=== PATIENT | male | born 1930 | race Caucasian/White ===

== ENCOUNTER 2017-05-17 14:47 | Inpatient (IN) | payer MEDICARE, OTHER ==
[~2017-05-17] VITALS: Ht 162.6 cm; Wt 50.0 kg
[~2017-05-17 14:47] MED LIST: DOCU1CAP39 PO; ENOX40P SQ; LISI-360 PO; LORTA5 PO; METO25TA6 PO
[2017-05-17 15:10] VITALS: BP 132/70; PULSE 84; RESP 16; TEMP 98.9; O2SAT 97
[2017-05-17] MEDS ORDERED: LISI10TA3 PO (16:25)
[2017-05-17] MEDS ORDERED: DONE1TAB63 PO (16:25)
[2017-05-17] MEDS ORDERED: METO25TA3 PO (16:25)
[2017-05-17] MEDS ORDERED: AMLO10TA2 PO (16:25)
[2017-05-17 16:26] LABS: AUTOMATED NEUTROPHIL # 23.3 TH/MM3 (1.8-7.7); BASOPHIL % 0.1 % (0.0-2.0); EOSINOPHIL # 0.2 TH/MM3 (0-0.4); EOSINOPHIL % 0.7 % (0.0-4.0); HEMATOCRIT 35.5 % (39.0-51.0); HEMO FLAGS DIFF FINAL; LYMPH % 6.9 % (9.0-44.0); LYMPHOCYTE # 1.9 TH/MM3 (1.0-4.8); MEAN CELL VOLUME 95.1 FL (80.0-100.0); MEAN CORPUSCULAR HEMOGLOBIN 32.7 PG (27.0-34.0); MEAN CORPUSCULAR HGB CONC 34.4 % (32.0-36.0); NEUT % 87.3 % (16.0-70.0); PLATELET COUNT 155 TH/MM3 (150-450); RED BLOOD COUNT 3.73 MIL/MM3 (4.50-5.90); RED CELL DISTRIBUTION WIDTH 13.4 % (11.6-17.2); WHITE BLOOD COUNT 26.7 TH/MM3 (4.0-11.0)
[2017-05-17 16:41] LABS: APTT (PATIENT) 27.7 SEC (24.3-30.1)
[2017-05-17 16:44] VITALS: BP 131/74; PULSE 96; RESP 16; O2SAT 98
[2017-05-17 16:47] LABS: BACTERIA, URINE OCC /hpf; BLOOD, URINE TRACE (NEG); GLUCOSE,URINE NEG (NEG); KETONE, URINE 10 mg/dL (NEG); NITRITE,URINE NEG (NEG); PH, URINE 5.5 (5.0-8.5); SQUAMOUS EPITHELIAL CELL URINE <1 /hpf (0-5); URINE COLOR YELLOW (YELLW/STRAW)
[2017-05-17 16:49] LABS: COMMENT (UR) CULT NOT INDICATED; CULTURE IF INDICATED CULT NOT INDICATED
[2017-05-17 16:55] LABS: ALT (GPT) 19 U/L (12-78); ANION GAP 10 MEQ/L (5-15); AST (GOT) 21 U/L (15-37); BICARBONATE 24.2 MEQ/L (21.0-32.0); BLOOD UREA NITROGEN 30 MG/DL (7-18); CHLORIDE 103 MEQ/L (98-107); GLOMERULAR FILTRATION RATE 56 ML/MIN (>89); POTASSIUM 3.9 MEQ/L (3.5-5.1); SODIUM (NA) 137 MEQ/L (136-145)
[2017-05-17 16:58] LABS: ALKALINE PHOSPHATASE 99 U/L (45-117); TOTAL BILIRUBIN ADULT 0.9 MG/DL (0.2-1.0)
--- NOTE | 2017-05-17 17:08 | PD ---
HPI Chief Complaint: Medical Clearance Time Seen by Provider: 16:46 Travel History International Travel<30 days: No Contact w/Intl Traveler<30days: No Traveled to known affect area: No History of Present Illness HPI 86-year-old male presents to emergency department for weakness, decreased oral intake, nonbloody diarrhea for approximately one week. He states that he has had diarrhea 4-5 times a day. Denies foul odor, fatty stool, flatulence. Patient denies recent travel, sick contacts, recent antibiotic use, long-term or assisted living visits. Patient has apparently been in bed more than normal with poor oral intake secondary to decreased appetite. Patient lives at home with . Apparently patient does have a referral to hematology for "low platelets" but has not yet followed up. Patient denies fever, chills, trauma, falls, pain, chest pain, shortness of breath, palpitations, abdominal, pain leg pain. Patient followed up with his primary care physician, Dr. Cortez May 03. PFSH Past Medical History Cancer: No Endocrine: No Genitourinary: Yes Hypertension: Yes Immune Disorder: No Kidney Stones: Yes Neurologic: No Psychiatric: No Reproductive: No Respiratory: No Influenza Vaccination: Yes Past Surgical History Abdominal Surgery: Yes (APPENDECTOMY) Appendectomy: Yes Tonsillectomy: Yes Social History Alcohol Use: No Tobacco Use: No Substance Use: No Allergies-Medications (Allergen,Severity, Reaction): Coded Allergies: No Known Allergies (Unverified Allergy, Unknown, 05/17/17) Reported Meds & Prescriptions Reported Meds & Active Scripts Active Reported Amlodipine (Amlodipine Besylate) 10 Mg Tab 10 Mg PO DAILY Metoprolol Tartrate 25 Mg Tab 25 Mg PO DAILY Lisinopril 10 Mg Tab 10 Mg PO DAILY Donepezil 23 Mg Tab 10 Mg PO HS Do not split, crush or chew. Review of Systems Except as stated in HPI: all other systems reviewed are Neg Physical Exam Narrative GENERAL: Well-nourished, well-developed patient. SKIN: Focused skin assessment warm/dry. HEAD: Normocephalic. Atraumatic EYES: No scleral icterus. No injection or drainage. PERRLA, EOMI NECK: Supple, trachea midline. No JVD or lymphadenopathy. No midline tenderness CARDIOVASCULAR: Regular rate and rhythm without murmurs, gallops, or rubs. RESPIRATORY: Breath sounds equal bilaterally. No accessory muscle use. GASTROINTESTINAL: Abdomen soft, non-tender, nondistended. MUSCULOSKELETAL: No cyanosis, or edema. Rectal exam- non bloody stool in diaper, good tone, brown stool BACK: Nontender without obvious deformity. No CVA tenderness. No midline tenderness Data Data Last Documented VS Vital Signs Date Time Temp Pulse Resp B/P (MAP) Pulse Ox O2 Delivery O2 Flow Rate FiO2 05/17/17 18:46 96 16 151/89 (109) 96 Room Air 05/17/17 15:10 98.9 Orders Orders Complete Blood Count With Diff (05/17/17 15:34) Comprehensive Metabolic Panel (05/17/17 15:34) Act Partial Throm Time (Ptt) (05/17/17 15:34) Urinalysis - C+S If Indicated (05/17/17 16:20) Chest, Single Ap (05/17/17 16:52) Stool Ova And Parasite Screen (05/17/17 16:57) Stool Wbc (Leukocytes) (05/17/17 16:57) C Diff Toxin Pcr (05/17/17 16:57) Electrocardiogram (05/17/17 ) Ckmb (Isoenzyme) Profile (05/17/17 15:30) Troponin I (05/17/17 15:30) CKMB (05/17/17 15:30) CKMB% (05/17/17 15:30) Admit Order (Ed Use Only) (05/17/17 19:21) Labs Laboratory Tests Test 05/17/17 15:30 05/17/17 16:35 White Blood Count 26.7 TH/MM3 Red Blood Count 3.73 MIL/MM3 Hemoglobin 12.2 GM/DL Hematocrit 35.5 % Mean Corpuscular Volume 95.1 FL Mean Corpuscular Hemoglobin 32.7 PG Mean Corpuscular Hemoglobin Concent 34.4 % Red Cell Distribution Width 13.4 % Platelet Count 155 TH/MM3 Mean Platelet Volume 8.3 FL Neutrophils (%) (Auto) 87.3 % Lymphocytes (%) (Auto) 6.9 % Monocytes (%) (Auto) 5.0 % Eosinophils (%) (Auto) 0.7 % Basophils (%) (Auto) 0.1 % Neutrophils # (Auto) 23.3 TH/MM3 Lymphocytes # (Auto) 1.9 TH/MM3 Monocytes # (Auto) 1.3 TH/MM3 Eosinophils # (Auto) 0.2 TH/MM3 Basophils # (Auto) 0.0 TH/MM3 CBC Comment DIFF FINAL Differential Comment Activated Partial Thromboplast Time 27.7 SEC Blood Urea Nitrogen 30 MG/DL Creatinine 1.22 MG/DL Random Glucose 66 MG/DL Total Protein 5.3 GM/DL Albumin 2.1 GM/DL Calcium Level 9.8 MG/DL Alkaline Phosphatase 99 U/L Aspartate Amino Transf (AST/SGOT) 21 U/L Alanine Aminotransferase (ALT/SGPT) 19 U/L Total Bilirubin 0.9 MG/DL Sodium Level 137 MEQ/L Potassium Level 3.9 MEQ/L Chloride Level 103 MEQ/L Carbon Dioxide Level 24.2 MEQ/L Anion Gap 10 MEQ/L Estimat Glomerular Filtration Rate 56 ML/MIN Total Creatine Kinase 131 U/L Creatine Kinase MB 2.0 NG/ML Troponin I 0.02 NG/ML Urine Color YELLOW Urine Turbidity HAZY Urine pH 5.5 Urine Specific [place] 1.015 Urine Protein 30 mg/dL Urine Glucose (UA) NEG mg/dL Urine Ketones 10 mg/dL Urine Occult Blood TRACE Urine Nitrite NEG Urine Bilirubin NEG Urine Urobilinogen LESS THAN 2.0 MG/DL Urine Leukocyte Esterase NEG Urine RBC 2 /hpf Urine WBC 2 /hpf Urine Squamous Epithelial Cells <1 /hpf Urine Bacteria OCC /hpf Microscopic Urinalysis Comment CULT NOT INDICATED MDM Medical Decision Making Medical Screen Exam Complete: Yes Emergency Medical Condition: Yes Differential Diagnosis Nonspecific diarrhea versus C. difficile versus viral syndrome Generalize weakness versus dehydration versus hypoglycemia Narrative Course 86-year-old male presents to emergency department for weakness, decreased oral intake, nonbloody diarrhea for approximately one week. He states that he has had diarrhea 4-5 times a day. Denies foul odor, fatty stool, flatulence. Patient denies recent travel, sick contacts, recent antibiotic use, long-term or assisted living visits. Patient has apparently been in bed more than normal with poor oral intake secondary to decreased appetite. Patient lives at home with . Apparently patient does have a referral to hematology for "low platelets" but has not yet followed up. Patient denies fever, chills, trauma, falls, pain, chest pain, shortness of breath, palpitations, abdominal, pain leg pain. Patient followed up with his primary care physician, Dr. Cortez May 03. Physical exam essentially unremarkable. Vital signs stable. Mild elevation of HR. WBC 26.7, H&H 12.2/35.5. FOBT negative. Stool tests pending. CXR without acute process. Urine consistent with poor oral intake. No evidence of urinary tract infection. Blood glucose 66. 1 cup of orange juice was administered in the ED. BG increased to 91. Pt tolerated PO fluids well. Pt to be admitted for leukocytosis, diarrhea, and generalized weakness. Dr Rouse [facility] Pos. & Neg. Controls: Passed Fecal Specimen Occult Blood: Negative Diagnosis Primary Impression: Diarrhea Qualified Codes: R19.7 - Diarrhea, unspecified Additional Impressions: Leukocytosis Qualified Codes: D72.829 - Elevated white blood cell count, unspecified Anemia Qualified Codes: D64.9 - Anemia, unspecified Admitting Information Admitting Physician Requests: Admit Condition: Stable Noemí Arzate May 17, 2017 17:08
--- NOTE | 2017-05-17 17:51 | RADRPT ---
EXAM DATE/TIME: 05/17/2017 17:22 [place] COMPARISON: CHEST SINGLE AP, January 22, 2014, 16:35. INDICATIONS : Fever. MEDICAL HISTORY : Hypertension. SURGICAL HISTORY : Appendectomy. ENCOUNTER: Initial ACUITY: 1 day PAIN SCORE: Non-responsive. LOCATION: Bilateral chest FINDINGS: There is minimal elevation right hemidiaphragm. Left lung is clear. The heart and pulmonary vascular ity are normal. The portion of the bony skeleton visualized is unremarkable. CONCLUSION: Minimal elevation right hemidiaphragm without consolidation. Jus Gutierres MD FACR on May 17, 2017 at 17:48 Board Certified Radiologist. This report was verified electronically.
[2017-05-17 18:36] LABS: CREATINE KINASE 131 U/L (39-308)
[2017-05-17 18:46] VITALS: BP 151/89; PULSE 96; RESP 16; O2SAT 96
[2017-05-17 19:42] VITALS: BP 135/60; PULSE 87; RESP 16; O2SAT 97
--- NOTE | 2017-05-17 23:10 | HHI.HP ---
[facility] Service [facility] Primary Care Physician Jose Jc MD Admission Diagnosis Weakness, diarrhea, leukocytosis Diagnoses: Travel History International Travel<30 Days: No Contact w/Intl Traveler <30 Da: No Traveled to Known Affected Are: No History of Present Illness 86-year-old male with a past medical history significant for hypertension presents to the emergency department for a several day history of weakness, decreased by mouth and nonbloody diarrhea for approximately one week. At the time of our interview, the patient is alone in his room and denies all of these symptoms. Per his , the patient has diarrhea approximately 4-5 times daily. It is foul-smelling. He has been fatigued. No known sick contacts. No recent antibiotic use. According to the patient's , he has a referral to hematology for "low platelets" however has not yet followed up. CBC is significant only for a leukocytosis to 26.7 with a left shift. Platelets are within normal limits at 155. Chemistry significant for BUN of 30 and a glucose of 66, however patient's blood sugar rebounded after by mouth intake. Chest x- ray negative for acute disease. Review of Systems Denies fever or chills Denies blurry vision, otorrhea, rhinorrhea Denies sore throat and cough No chest pain, palpitations, shortness of breath No abdominal pain Denies constipation/diarrhea/nausea/vomiting Denies muscle pain/weakness No rashes Past Family Social History Past Medical History (Obtained from medical record review) Hypertension Past Surgical History Appendectomy Tonsillectomy Reported Medications Reported Meds & Active Scripts Active Reported Amlodipine (Amlodipine Besylate) 10 Mg Tab 10 Mg PO DAILY Metoprolol Tartrate 25 Mg Tab 25 Mg PO DAILY Lisinopril 10 Mg Tab 10 Mg PO DAILY Donepezil 23 Mg Tab 10 Mg PO HS Do not split, crush or chew. Allergies: Coded Allergies: No Known Allergies (Unverified Adverse Reaction, Unknown, 05/17/17) Family History Sister with hypertension. Social History Denies alcohol, tobacco and illicit drugs. Lives with his . Physical Exam Vital Signs Vital Signs Date Time Temp Pulse Resp B/P (MAP) Pulse Ox O2 Delivery O2 Flow Rate FiO2 05/17/17 21:35 05/17/17 19:42 87 16 135/60 (85) 97 Room Air 05/17/17 18:46 96 16 151/89 (109) 96 Room Air 05/17/17 16:44 96 16 131/74 (93) 98 Room Air 05/17/17 15:10 98.9 84 16 132/70 (90) 97 Physical Exam GENERAL: Elderly, confused male lying in bed SKIN: No rashes, ecchymoses or lesions. Cool and dry. HEAD: Atraumatic. Normocephalic. No temporal or scalp tenderness. EYES: Pupils equal round and reactive. Extraocular motions intact. No scleral icterus. No injection or drainage. ENT: Nose without bleeding, purulent drainage or septal hematoma. Throat without erythema, tonsillar hypertrophy or exudate. Uvula midline. Airway patent. Neck is membranes dry. NECK: Trachea midline. No JVD or lymphadenopathy. Supple, nontender, no meningeal signs. CARDIOVASCULAR: Regular rate and rhythm without murmurs, gallops, or rubs. RESPIRATORY: Clear to auscultation. Breath sounds equal bilaterally. No wheezes , rales, or rhonchi. GASTROINTESTINAL: Abdomen soft, non-tender, nondistended. No hepato-splenomegaly , or palpable masses. No guarding. MUSCULOSKELETAL: Extremities without clubbing, cyanosis, or edema. No joint tenderness, effusion, or edema noted. NEUROLOGICAL: Cranial nerves II through XII intact. Motor and sensory grossly within normal limits. Normal speech. Patient and O 1, oriented only to self. Laboratory Laboratory Tests Test 05/17/17 15:30 05/17/17 16:35 05/17/17 20:30 White Blood Count 26.7 Red Blood Count 3.73 Hemoglobin 12.2 Hematocrit 35.5 Mean Corpuscular Volume 95.1 Mean Corpuscular Hemoglobin 32.7 Mean Corpuscular Hemoglobin Concent 34.4 Red Cell Distribution Width 13.4 Platelet Count 155 Mean Platelet Volume 8.3 Neutrophils (%) (Auto) 87.3 Lymphocytes (%) (Auto) 6.9 Monocytes (%) (Auto) 5.0 Eosinophils (%) (Auto) 0.7 Basophils (%) (Auto) 0.1 Neutrophils # (Auto) 23.3 Lymphocytes # (Auto) 1.9 Monocytes # (Auto) 1.3 Eosinophils # (Auto) 0.2 Basophils # (Auto) 0.0 CBC Comment DIFF FINAL Differential Comment Activated Partial Thromboplast Time 27.7 Blood Urea Nitrogen 30 Creatinine 1.22 Random Glucose 66 Total Protein 5.3 Albumin 2.1 Calcium Level 9.8 Alkaline Phosphatase 99 Aspartate Amino Transf (AST/SGOT) 21 Alanine Aminotransferase (ALT/SGPT) 19 Total Bilirubin 0.9 Sodium Level 137 Potassium Level 3.9 Chloride Level 103 Carbon Dioxide Level 24.2 Anion Gap 10 Estimat Glomerular Filtration Rate 56 Total Creatine Kinase 131 Creatine Kinase MB 2.0 Troponin I 0.02 Urine Color YELLOW Urine Turbidity HAZY Urine pH 5.5 Urine Specific [place] 1.015 Urine Protein 30 Urine Glucose (UA) NEG Urine Ketones 10 Urine Occult Blood TRACE Urine Nitrite NEG Urine Bilirubin NEG Urine Urobilinogen LESS THAN 2.0 Urine Leukocyte Esterase NEG Urine RBC 2 Urine WBC 2 Urine Squamous Epithelial Cells <1 Urine Bacteria OCC Microscopic Urinalysis Comment CULT NOT INDICATED Date/Time Source Procedure Growth Status 05/17/17 20:30 Stool Stool Stool Pus (SLIM) Pending Received Result Diagram: 05/17/17 1530 05/17/17 1530 Caprini VTE Risk Assessment Caprini VTE Risk Assessment: Mod/High Risk (score >= 2) Caprini Risk Assessment Model Point Value = 1 Point Value = 2 Point Value = 3 Point Value = 5 Age 41-60 Minor surgery BMI > 25 kg/m2 Swollen legs Varicose veins or History of unexplained or recurrent spontaneous Oral contraceptives or hormone replacement Sepsis (< 1 month) Serious lung disease, including pneumonia (< 1 month) Abnormal pulmonary function Acute myocardial infarction Congestive heart failure (< 1 month) History of inflammatory bowel disease Medical patient at bed rest Age 61-74 Arthroscopic surgery Major open surgery (> 45 min) Laparoscopic surgery (> 45 min) Malignancy Confined to bed (> 72 hours) Immobilizing plaster cast Central venous access Age >= 75 History of VTE Family history of VTE Factor V Leiden Prothrombin [id number] Lupus anticoagulant Anticardiolipin antibodies Elevated serum homocysteine Heparin-induced thrombocytopenia Other congenital or acquired thrombophilia Stroke (< 1 month) Elective arthroplasty Hip, pelvis, or leg fracture Acute spinal cord injury (< 1 month) Prophylaxis Regimen Total Risk Factor Score Risk Level Prophylaxis Regimen 0-1 Low Early ambulation 2 Moderate Order ONE of the following: *Sequential Compression Device (SCD) *Heparin 5000 units SQ BID 3-4 Higher Order ONE of the following medications: *Heparin 5000 units SQ TID *Enoxaparin/Lovenox 40 mg SQ daily (WT < 150 kg, CrCl > 30 mL/min) *Enoxaparin/Lovenox 30 mg SQ daily (WT < 150 kg, CrCl > 10-29 mL/min) *Enoxaparin/Lovenox 30 mg SQ BID (WT < 150 kg, CrCl > 30 mL/min) AND/OR *Sequential Compression Device (SCD) 5 or more Highest Order ONE of the following medications: *Heparin 5000 units SQ TID (Preferred with Epidurals) *Enoxaparin/Lovenox 40 mg SQ daily (WT < 150 kg, CrCl > 30 mL/min) *Enoxaparin/Lovenox 30 mg SQ daily (WT < 150 kg, CrCl > 10-29 mL/min) *Enoxaparin/Lovenox 30 mg SQ BID (WT < 150 kg, CrCl > 30 mL/min) AND *Sequential Compression Device (SCD) Assessment and Plan Assessment and Plan 86-year-old male with a past medical history significant for hypertension and dementia presents with a one-week history of decreased by mouth intake, increased lethargy and diarrhea. Patient was hypoglycemic on admission, however hypoglycemia resolved with oral intake. 1. Diarrhea/decreased by mouth intake Patient with leukocytosis but afebrile C. difficile toxin pending Stool studies pending Elevated BUN to 30 Gentle fluid hydration 2. Hypoglycemia Suspect secondary to poor by mouth intake Encourage PO Monitor bedside glucose 3. Hypertension Continue home metoprolol, amlodipine and lisinopril 4. Dementia Continue home Donepezil FEN Regular diet NS at 60 cc/hour Electrolytes: Monitored recently. Heparin Mary Rouse MD May 17, 2017 23:10
[2017-05-17] MEDS: SODIUM CHLOR 0.9% 1000 ML INJ 1,000 ML IV SCH (23:20)
[2017-05-17 23:21] LABS: C. DIFF EPI 027 PRESUMPTIVE NEGATIVE (NEGATIVE)
[2017-05-18 02:44] VITALS: BP 154/67; PULSE 79; RESP 18; TEMP 98.1; O2SAT 96
[2017-05-18 08:15] VITALS: BP 158/63; PULSE 82; RESP 16; TEMP 97.9; O2SAT 98
[2017-05-18] MEDS ORDERED: HEPARIN SODIUM - SQ 10,000 UNITS/ML VIAL SQ SCH (09:00)
[2017-05-18] MEDS ORDERED: metroNIDAZOLE 500 MG TAB PO SCH (09:00)
[2017-05-18] MEDS: METOPROLOL TARTRATE 25 MG TAB PO SCH (09:08)
[2017-05-18] MEDS: LISINOPRIL 10 MG TAB PO SCH (09:09)
[2017-05-18] MEDS: LACTOBACILLUS ACIDOPHILUS TAB PO SCH ×3 (09:17→18:40)
[2017-05-18 11:25] VITALS: BP 116/55; PULSE 69; RESP 16; TEMP 97.6; O2SAT 95
[2017-05-18] MEDS: VANCOMYCIN 500 MG VIAL (FOR ORAL USE ONLY) PO SCH ×3 (14:20→22:22)
[2017-05-18 15:20] LABS: AUTOMATED NEUTROPHIL # 21.1 TH/MM3 (1.8-7.7); BASOPHIL # 0.1 TH/MM3 (0-0.2); BASOPHIL % 0.5 % (0.0-2.0); EOSINOPHIL # 0.3 TH/MM3 (0-0.4); HEMO FLAGS DIFF FINAL; MEAN CELL VOLUME 94.9 FL (80.0-100.0); MEAN CORPUSCULAR HEMOGLOBIN 31.3 PG (27.0-34.0); MONO % 4.8 % (0.0-8.0); NEUT % 85.7 % (16.0-70.0); PLATELET COUNT 182 TH/MM3 (150-450); RED BLOOD COUNT 4.11 MIL/MM3 (4.50-5.90); RED CELL DISTRIBUTION WIDTH 13.6 % (11.6-17.2); WHITE BLOOD COUNT 24.6 TH/MM3 (4.0-11.0)
[2017-05-18 15:40] LABS: BICARBONATE 27.3 MEQ/L (21.0-32.0); MAGNESIUM 1.8 MG/DL (1.5-2.5); POTASSIUM 3.7 MEQ/L (3.5-5.1)
--- NOTE | 2017-05-18 16:05 | HHI.PR ---
Subjective Remarks Follow up for diarrhea, C. Diff colitis. Patient is currently doing well. Resting in bed. No chest pain, SOB, fever, chills. Objective Vitals Vital Signs Date Time Temp Pulse Resp B/P (MAP) Pulse Ox O2 Delivery O2 Flow Rate FiO2 05/18/17 11:25 97.6 69 16 116/55 (75) 95 05/18/17 08:15 97.9 82 16 158/63 (94) 98 05/18/17 02:44 98.1 79 18 154/67 (96) 96 05/17/17 21:35 05/17/17 19:42 87 16 135/60 (85) 97 Room Air 05/17/17 18:46 96 16 151/89 (109) 96 Room Air 05/17/17 16:44 96 16 131/74 (93) 98 Room Air I/O 05/17/17 05/17/17 05/17/17 05/18/17 05/18/17 05/18/17 07:00 15:00 23:00 07:00 15:00 23:00 Intake Total 240 ml Output Total 200 ml Balance 40 ml Intake Oral 240 ml Output Urine Total 200 ml # Bowel Movements 3 Result Diagram: 05/18/17 1445 05/18/17 1445 Imaging Last Impressions Chest X-Ray 05/17/17 1652 Signed Impressions: Service Date/Time: Wednesday, May 17, 2017 17:22 - CONCLUSION: Minimal elevation right hemidiaphragm without consolidation. Jus Gutierres MD FACR Objective Remarks GENERAL: Alert,NAD. SKIN: Warm and dry. HEAD: Normocephalic. EYES: No scleral icterus. No injection or drainage. NECK: Supple, trachea midline. No JVD or lymphadenopathy. CARDIOVASCULAR: Regular rate and rhythm without murmurs, gallops, or rubs. RESPIRATORY: Breath sounds equal bilaterally. No accessory muscle use. GASTROINTESTINAL: Abdomen soft, non-tender, nondistended. MUSCULOSKELETAL: No cyanosis, or edema. BACK: Nontender without obvious deformity. No CVA tenderness. Procedures None. A/P Problem List: (1) C. difficile colitis ICD Code: A04.72 - Enterocolitis due to Clostridium difficile, not specified as recurrent (2) Dementia ICD Code: F03.90 - Unspecified dementia without behavioral disturbance (3) HTN (hypertension) ICD Code: I10 - Essential (primary) hypertension Assessment and Plan Mr. Key is an 86-year-old male with a past medical history significant for hypertension and dementia presents with a one-week history of decreased by mouth intake, increased lethargy and diarrhea. - Sepsis (HR 96, WBC 26.7, known infection abdominal) - Severe C. Diff colitis - WBC 26.7 on admission. We will start patient on PO Vancomycin 125mg QID for 14 days. - Once WBC improves and clinical improvement occurs, we can potentially discharge patient on oral Vancomycin. - Hypertension - Currently normotensive. - Continue Lisinopril 10mg Qday, Amlodipine 10mg Qday and Metoprolol 25mg Qday. - Dementia - Continue Donepezil 10mg QHS. - Mild ZOLTAN - Creatinine 1.22 ==> 1.12. Full code. Loveprasadx. Leeanne Mccarthy DO May 18, 2017 4:05 pm
[2017-05-18 16:30] VITALS: BP 142/65; PULSE 77; RESP 18; TEMP 97.6; O2SAT 97
[2017-05-18] MEDS: ENOXAPARIN SODIUM 30 MG/0.3 ML SYRINGE SQ SCH (17:20)
--- NOTE | 2017-05-18 18:42 | EKG ---
Date Performed: 05/17/2017 Time Performed: 18:30:24 PTAGE: 86 years EKG: Sinus rhythm WITH FIRST DEGREE AV BLOCK INFERIOR MYOCARDIAL INFARCTION ABNORMAL ECG Compared to prior tracing no significant change PREVIOUS TRACING : 01/22/2014 16.57 DOCTOR: Marine Ivy Interpretating Date/Time 05/18/2017 18:40:58
[2017-05-18] MEDS: SODIUM CHLOR 0.9% 1000 ML INJ 1,000 ML IV SCH (18:43)
[2017-05-18 20:37] VITALS: BP 138/65; PULSE 69; RESP 18; TEMP 97.6; O2SAT 95
[2017-05-18] MEDS: DONEPEZIL HCL 5 MG TAB PO SCH (22:21)
[2017-05-18 23:20] VITALS: BP 138/73; PULSE 90; RESP 18; TEMP 97.8; O2SAT 96
[2017-05-19 02:54] VITALS: BP 146/72; PULSE 85; RESP 18; TEMP 97.8; O2SAT 97
[2017-05-19 08:07] VITALS: BP 134/63; PULSE 70; RESP 20; TEMP 97.7; O2SAT 97
--- NOTE | 2017-05-19 08:22 | HHI.PR ---
Subjective Remarks Follow up C. difficile colitis. Patient is confused. He states that he is not having any diarrhea. Denies abdominal pain, nausea, vomiting, chest pain, dyspnea. Per nursing, diarrhea seems to be slowing down overnight. Objective Vitals Vital Signs Date Time Temp Pulse Resp B/P (MAP) Pulse Ox O2 Delivery O2 Flow Rate FiO2 05/19/17 08:07 97.7 70 20 134/63 (86) 97 05/19/17 02:54 97.8 85 18 146/72 (96) 97 05/18/17 23:20 97.8 90 18 138/73 (94) 96 05/18/17 20:37 97.6 69 18 138/65 (89) 95 05/18/17 16:30 97.6 77 18 142/65 (90) 97 05/18/17 11:25 97.6 69 16 116/55 (75) 95 I/O 05/18/17 05/18/17 05/18/17 05/19/17 05/19/17 05/19/17 07:00 15:00 23:00 07:00 15:00 23:00 Intake Total 240 ml 240 ml Output Total 200 ml Balance 40 ml 240 ml Intake Oral 240 ml 240 ml Output Urine Total 200 ml # Voids 3 # Bowel Movements 3 3 3 Result Diagram: 05/18/17 1445 05/18/17 1445 Imaging Last Impressions Chest X-Ray 05/17/17 1652 Signed Impressions: Service Date/Time: Wednesday, May 17, 2017 17:22 - CONCLUSION: Minimal elevation right hemidiaphragm without consolidation. Jus Gutierres MD FACR Objective Remarks General: Elderly male in no acute distress. Heart: Regular rate and rhythm. No murmur. Lungs: Clear to auscultation bilaterally. No wheezes, rales, or rhonchi. Breathing is nonlabored. Abdomen: Soft, nontender, nondistended. Extremities: No lower extremity edema. Psych: Alert, confused. Not oriented to year, month, city. Procedures None. Urinary Catheter: No Vascular Central Line Catheter: No A/P Problem List: (1) C. difficile colitis ICD Code: A04.72 - Enterocolitis due to Clostridium difficile, not specified as recurrent (2) Dementia ICD Code: F03.90 - Unspecified dementia without behavioral disturbance (3) HTN (hypertension) ICD Code: I10 - Essential (primary) hypertension Assessment and Plan 1. Sepsis: Patient presented with tachycardia, leukocytosis. Source is C. difficile colitis. Continue antibiotics. 2. Severe C. difficile colitis: Continue oral vancomycin 14 days. Diarrhea seems to be improving. 3. Hypertension: Blood pressure well controlled. Continue lisinopril, amlodipine , metoprolol. 4. Dementia: Continue Aricept. 5. Mild acute kidney injury: Improving. Recheck labs. 6. Leukocytosis: Secondary to C. difficile colitis. WBCs are trending down. Recheck labs today. 7. DVT prophylaxis: Lovenox. Discharge Planning Patient will need SNF at discharge. Case management to assist with discharge planning. Carmine Estrella MD May 19, 2017 08:22
[2017-05-19] MEDS: LISINOPRIL 10 MG TAB PO SCH (09:17)
[2017-05-19] MEDS: VANCOMYCIN 500 MG VIAL (FOR ORAL USE ONLY) PO SCH ×4 (09:17→21:00)
[2017-05-19] MEDS: LACTOBACILLUS ACIDOPHILUS TAB PO SCH ×3 (09:17→17:35)
[2017-05-19] MEDS: METOPROLOL TARTRATE 25 MG TAB PO SCH (09:17)
[2017-05-19] MEDS: SODIUM CHLOR 0.9% 1000 ML INJ 1,000 ML IV SCH (09:17)
[2017-05-19 11:01] LABS: AUTOMATED NEUTROPHIL # 16.7 TH/MM3 (1.8-7.7); BASOPHIL # 0.1 TH/MM3 (0-0.2); BASOPHIL % 0.3 % (0.0-2.0); EOSINOPHIL # 0.4 TH/MM3 (0-0.4); EOSINOPHIL % 2.1 % (0.0-4.0); HEMATOCRIT 38.7 % (39.0-51.0); HEMO FLAGS DIFF FINAL; LYMPH % 9.4 % (9.0-44.0); LYMPHOCYTE # 1.9 TH/MM3 (1.0-4.8); MEAN CELL VOLUME 94.8 FL (80.0-100.0); MEAN CORPUSCULAR HEMOGLOBIN 31.6 PG (27.0-34.0); MEAN CORPUSCULAR HGB CONC 33.4 % (32.0-36.0); MONO % 5.3 % (0.0-8.0); NEUT % 82.9 % (16.0-70.0); PLATELET COUNT 171 TH/MM3 (150-450); RED BLOOD COUNT 4.08 MIL/MM3 (4.50-5.90); RED CELL DISTRIBUTION WIDTH 13.4 % (11.6-17.2); WHITE BLOOD COUNT 20.1 TH/MM3 (4.0-11.0)
[2017-05-19 12:07] VITALS: BP 99/53; PULSE 63; RESP 20; TEMP 98.2; O2SAT 96
[2017-05-19 15:32] VITALS: BP 140/64; PULSE 66; RESP 20; TEMP 98.6; O2SAT 95
[2017-05-19] MEDS: ENOXAPARIN SODIUM 30 MG/0.3 ML SYRINGE SQ SCH (17:36)
[2017-05-19] MEDS: DONEPEZIL HCL 5 MG TAB PO SCH (21:00)
[2017-05-19] MEDS ORDERED: diphenhydrAMINE HCL 50 MG/ML VIAL IV PUSH ONE (22:30)
[2017-05-19 23:13] VITALS: BP 122/72; PULSE 92; RESP 17; TEMP 98.3; O2SAT 97
[2017-05-20] MEDS: SODIUM CHLOR 0.9% 1000 ML INJ 1,000 ML IV SCH (01:15)
[2017-05-20 03:01] VITALS: BP 139/64; PULSE 75; RESP 18; TEMP 98.3; O2SAT 96
[2017-05-20 07:46] LABS: AUTOMATED NEUTROPHIL # 12.3 TH/MM3 (1.8-7.7); BASOPHIL % 0.2 % (0.0-2.0); EOSINOPHIL # 0.4 TH/MM3 (0-0.4); EOSINOPHIL % 2.4 % (0.0-4.0); HEMATOCRIT 34.5 % (39.0-51.0); HEMO FLAGS DIFF FINAL; LYMPH % 14.1 % (9.0-44.0); LYMPHOCYTE # 2.3 TH/MM3 (1.0-4.8); MEAN CELL VOLUME 95.3 FL (80.0-100.0); MEAN CORPUSCULAR HEMOGLOBIN 32.3 PG (27.0-34.0); MEAN CORPUSCULAR HGB CONC 33.9 % (32.0-36.0); MONO % 7.7 % (0.0-8.0); NEUT % 75.6 % (16.0-70.0); PLATELET COUNT 177 TH/MM3 (150-450); RED BLOOD COUNT 3.62 MIL/MM3 (4.50-5.90); RED CELL DISTRIBUTION WIDTH 13.5 % (11.6-17.2); WHITE BLOOD COUNT 16.3 TH/MM3 (4.0-11.0)
[2017-05-20 08:02] LABS: BICARBONATE 22.9 MEQ/L (21.0-32.0); POTASSIUM 3.3 MEQ/L (3.5-5.1)
[2017-05-20 08:13] VITALS: BP 131/61; PULSE 66; RESP 24; TEMP 98.3; O2SAT 98
[2017-05-20] MEDS: LACTOBACILLUS ACIDOPHILUS TAB PO SCH ×3 (08:40→17:59)
[2017-05-20] MEDS: VANCOMYCIN 500 MG VIAL (FOR ORAL USE ONLY) PO SCH ×4 (08:41→23:00)
[2017-05-20] MEDS: LISINOPRIL 10 MG TAB PO SCH (08:41)
[2017-05-20] MEDS: METOPROLOL TARTRATE 25 MG TAB PO SCH (08:41)
[2017-05-20] MEDS ORDERED: NS + KCL 20 MEQ INJ 1,000 ML IV SCH (08:45)
--- NOTE | 2017-05-20 09:30 | HHI.PR ---
Subjective Remarks Follow up c difficile colitis. Patient has no complaints at this time. He remains confused. Per nursing, patient was combative overnight, but has calmed down this morning. He denies nausea, vomiting, diarrhea. One loose stool overnight per nursing. Objective Vitals Vital Signs Date Time Temp Pulse Resp B/P (MAP) Pulse Ox O2 Delivery O2 Flow Rate FiO2 05/20/17 08:13 98.3 66 24 131/61 (84) 98 05/20/17 03:01 98.3 75 18 139/64 (89) 96 05/19/17 23:13 98.3 92 17 122/72 (89) 97 05/19/17 15:32 98.6 66 20 140/64 (89) 95 05/19/17 12:07 98.2 63 20 99/53 (68) 96 I/O 05/19/17 05/19/17 05/19/17 05/20/17 05/20/17 05/20/17 07:00 15:00 23:00 07:00 15:00 23:00 Intake Total 975 ml Balance 975 ml Intake Oral 975 ml # Voids 2 # Bowel Movements 3 0 Result Diagram: 05/20/1773005/20/17730 Imaging Last Impressions Chest X-Ray 05/17/17 1652 Signed Impressions: Service Date/Time: Wednesday, May 17, 2017 17:22 - CONCLUSION: Minimal elevation right hemidiaphragm without consolidation. uJs Gutierres MD FACR Objective Remarks General: Elderly male in no acute distress. Heart: Regular rate and rhythm. No murmur. Lungs: Clear to auscultation bilaterally. No wheezes, rales, or rhonchi. Breathing is nonlabored. Abdomen: Soft, nontender, nondistended. Extremities: No lower extremity edema. Psych: Alert, confused. Not oriented to year, month, city. Procedures None. Urinary Catheter: No Vascular Central Line Catheter: No A/P Problem List: (1) C. difficile colitis ICD Code: A04.72 - Enterocolitis due to Clostridium difficile, not specified as recurrent (2) Dementia ICD Code: F03.90 - Unspecified dementia without behavioral disturbance (3) HTN (hypertension) ICD Code: I10 - Essential (primary) hypertension Assessment and Plan 1. Sepsis: Improved. Patient presented with tachycardia, leukocytosis. Source is C. difficile colitis. Continue antibiotics. 2. Severe C. difficile colitis: Continue oral vancomycin 14 days. Diarrhea is be improving. 3. Hypertension: Blood pressure well controlled. Continue lisinopril, amlodipine , metoprolol. 4. Dementia: Continue Aricept. 5. Mild acute kidney injury: Improving. 6. Leukocytosis: Secondary to C. difficile colitis. WBCs are trending down. 7. Hypokalemia: Supplement potassium. 8. DVT prophylaxis: Lovenox. Discharge Planning Probable discharge to SNF tomorrow. Carmine Estrella MD May 20, 2017 09:30
[2017-05-20] MEDS ORDERED: POTASSIUM CHLORIDE 20 MEQ CONTROLLED RELEASE TAB PO ONE (10:00)
[2017-05-20 10:58] VITALS: BP 110/56; PULSE 72; RESP 30; TEMP 97.4; O2SAT 90
[2017-05-20] MEDS: ENOXAPARIN SODIUM 30 MG/0.3 ML SYRINGE SQ SCH (16:00)
[2017-05-20 22:08] VITALS: BP 116/69; PULSE 77; RESP 18; TEMP 97.6; O2SAT 96
[2017-05-20] MEDS: DONEPEZIL HCL 5 MG TAB PO SCH (23:00)
[2017-05-20 23:01] VITALS: BP 123/58; PULSE 71; RESP 17; TEMP 99.5; O2SAT 95
[2017-05-21 03:11] VITALS: BP 120/61; PULSE 73; RESP 18; TEMP 99.1; O2SAT 95
[2017-05-21 07:06] LABS: AUTOMATED NEUTROPHIL # 13.5 TH/MM3 (1.8-7.7); BASOPHIL % 0.2 % (0.0-2.0); EOSINOPHIL # 0.4 TH/MM3 (0-0.4); EOSINOPHIL % 2.1 % (0.0-4.0); HEMATOCRIT 33.2 % (39.0-51.0); HEMO FLAGS DIFF FINAL; LYMPH % 10.5 % (9.0-44.0); LYMPHOCYTE # 1.8 TH/MM3 (1.0-4.8); MEAN CELL VOLUME 94.3 FL (80.0-100.0); MEAN CORPUSCULAR HEMOGLOBIN 31.8 PG (27.0-34.0); MEAN CORPUSCULAR HGB CONC 33.7 % (32.0-36.0); MONO % 7.1 % (0.0-8.0); NEUT % 80.1 % (16.0-70.0); PLATELET COUNT 174 TH/MM3 (150-450); RED BLOOD COUNT 3.52 MIL/MM3 (4.50-5.90); RED CELL DISTRIBUTION WIDTH 13.3 % (11.6-17.2); WHITE BLOOD COUNT 16.9 TH/MM3 (4.0-11.0)
[2017-05-21 07:32] VITALS: BP 123/60; PULSE 70; RESP 18; TEMP 98.5; O2SAT 94
[2017-05-21 07:36] LABS: BICARBONATE 23.2 MEQ/L (21.0-32.0); POTASSIUM 3.5 MEQ/L (3.5-5.1)
[2017-05-21] MEDS ORDERED: LACT PO (08:07)
[2017-05-21] MEDS ORDERED: VANC500I3 PO (08:07)
--- NOTE | 2017-05-21 08:08 | HHI.DCPOC ---
Discharge Care Plan Diagnosis: (1) C. difficile colitis (2) HTN (hypertension) (3) Dementia (4) Leukocytosis Goals to Promote Your Health * To prevent worsening of your condition and complications * To maintain your health at the optimal level Directions to Meet Your Goals Take your medications as prescribed Follow your dietary instruction Follow activity as directed Keep your appointments as scheduled Take your immunizations and boosters as scheduled If your symptoms worsen call your PCP, if no PCP go to Urgent Care Center or Emergency Room Smoking is Dangerous to Your Health. Avoid second hand smoke Call the 24-hour hour crisis hotline for domestic abuse at Carmine Estrella MD May 21, 2017 08:08
--- NOTE | 2017-05-21 08:12 | HHI.DS ---
cc: Jose Jc MD Discharge Summary Admission Date May 18, 2017 at 13:24 Discharge Date: May 21, 2017 Admitting Diagnosis Weakness, diarrhea, leukocytosis (1) C. difficile colitis ICD Code: A04.72 - Enterocolitis due to Clostridium difficile, not specified as recurrent (2) Dementia ICD Code: F03.90 - Unspecified dementia without behavioral disturbance (3) HTN (hypertension) ICD Code: I10 - Essential (primary) hypertension Procedures None. Brief History - From Admission 86-year-old male with a past medical history significant for hypertension presents to the emergency department for a several day history of weakness, decreased by mouth and nonbloody diarrhea for approximately one week. At the time of our interview, the patient is alone in his room and denies all of these symptoms. Per his , the patient has diarrhea approximately 4-5 times daily. It is foul-smelling. He has been fatigued. No known sick contacts. No recent antibiotic use. According to the patient's , he has a referral to hematology for "low platelets" however has not yet followed up. CBC is significant only for a leukocytosis to 26.7 with a left shift. Platelets are within normal limits at 155. Chemistry significant for BUN of 30 and a glucose of 66, however patient's blood sugar rebounded after by mouth intake. Chest x- ray negative for acute disease. CBC/BMP: 05/21/17 0615 05/21/17 0615 Significant Findings Laboratory Tests Test 05/18/17 14:45 05/19/17 10:14 05/20/17 07:31 05/21/17 06:15 White Blood Count 24.6 TH/MM3 (4.0-11.0) 20.1 TH/MM3 (4.0-11.0) 16.3 TH/MM3 (4.0-11.0) 16.9 TH/MM3 (4.0-11.0) Red Blood Count 4.11 MIL/MM3 (4.50-5.90) 4.08 MIL/MM3 (4.50-5.90) 3.62 MIL/MM3 (4.50-5.90) 3.52 MIL/MM3 (4.50-5.90) Hemoglobin 12.9 GM/DL (13.0-17.0) 12.9 GM/DL (13.0-17.0) 11.7 GM/DL (13.0-17.0) 11.2 GM/DL (13.0-17.0) Neutrophils (%) (Auto) 85.7 % (16.0-70.0) 82.9 % (16.0-70.0) 75.6 % (16.0-70.0) 80.1 % (16.0-70.0) Lymphocytes (%) (Auto) 8.0 % (9.0-44.0) Neutrophils # (Auto) 21.1 TH/MM3 (1.8-7.7) 16.7 TH/MM3 (1.8-7.7) 12.3 TH/MM3 (1.8-7.7) 13.5 TH/MM3 (1.8-7.7) Monocytes # (Auto) 1.2 TH/MM3 (0-0.9) 1.1 TH/MM3 (0-0.9) 1.3 TH/MM3 (0-0.9) 1.2 TH/MM3 (0-0.9) Blood Urea Nitrogen 23 MG/DL (7-18) Random Glucose 107 MG/DL (74-106) Phosphorus Level 1.4 MG/DL (2.5-4.9) Estimat Glomerular Filtration Rate 62 ML/MIN (>89) 69 ML/MIN (>89) 76 ML/MIN (>89) Hematocrit 38.7 % (39.0-51.0) 34.5 % (39.0-51.0) 33.2 % (39.0-51.0) Potassium Level 3.3 MEQ/L (3.5-5.1) Chloride Level 110 MEQ/L (98-107) 111 MEQ/L (98-107) Imaging Last Impressions Chest X-Ray 05/17/17 8362 Signed Impressions: Service Date/Time: Wednesday, May 17, 2017 17:22 - CONCLUSION: Minimal elevation right hemidiaphragm without consolidation. Jus Gutierres MD FACR PE at Discharge General: Elderly male in no acute distress. Heart: Regular rate and rhythm. No murmur. Lungs: Clear to auscultation bilaterally. No wheezes, rales, or rhonchi. Breathing is nonlabored. Abdomen: Soft, nontender, nondistended. Extremities: No lower extremity edema. Psych: Alert, confused. Not oriented to year, month, city. Pt update on day of discharge The patient is confused. He has no complaints at this time. Denies diarrhea. States "I didn't know I was in the hospital". Per nursing, no events overnight. Patient was not as agitated last night. Hospital Course The patient was admitted for management of diarrhea. C. difficile toxin was positive. He was started on oral vancomycin. Diarrhea improved throughout the hospitalization. Patient remained confused, which was felt to be likely his baseline. Patient had significant leukocytosis (WBC 26.7) on admission. This improved. He developed mild hypokalemia. Potassium was replaced. Arrangements were made for discharge to SNF. Pt Condition on Discharge: Stable Discharge Disposition: Discharge to SNF Discharge Time: > 30 minutes Discharge Instructions DIET: Follow Instructions for: As Tolerated, No Restrictions Activities you can perform: Regular-No Restrictions Follow up Referrals: PCP Follow-up - 1 Week New Medications: Lactobacillus Acidophilus (Acidophilus/l-Sporogenes) 35 Million Cell-25 Million Cell Tab 1 TAB PO TID for probiotic, #30 TAB 0 Refills Vancomycin Inj (Vancomycin Inj) 500 Mg Inj 125 MG PO QID for Infection, #44 INJECTION 0 Refills Stop date 06/01/17 Continued Medications: Amlodipine (Amlodipine) 10 Mg Tab 10 MG PO DAILY for Blood Pressure Management, #30 TAB 0 Refills Donepezil (Donepezil) 23 Mg Tab 10 MG PO HS for Dementia, #30 TAB 0 Refills Do not split, crush or chew. Lisinopril (Lisinopril) 10 Mg Tab 10 MG PO DAILY, #30 TAB 0 Refills Metoprolol Tartrate (Metoprolol Tartrate) 25 Mg Tab 25 MG PO DAILY, #30 TAB 0 Refills Carmine Estrella MD May 21, 2017 08:12
[2017-05-21] MEDS: LISINOPRIL 10 MG TAB PO SCH (09:48)
[2017-05-21] MEDS: METOPROLOL TARTRATE 25 MG TAB PO SCH (09:48)
[2017-05-21] MEDS: VANCOMYCIN 500 MG VIAL (FOR ORAL USE ONLY) PO SCH (09:48)
[2017-05-21] MEDS: LACTOBACILLUS ACIDOPHILUS TAB PO SCH (09:48)
== END 2017-05-21 12:38 | disposition home or self-care (01) | DRG 872 ==
LOC: NEPD 14:47 → NEDA 19:24 → NEPGCP 21:40 → OBSVTOIN 05-18 13:24
PROVIDERS: ADMIT Family Medicine; ATTEND Family Medicine
DX: A41.4 Sepsis due to anaerobes (principal); A04.72 Enterocolitis due to Clostridium difficile, not specified as recurrent; N17.9 Acute kidney failure, unspecified; Z68.1 Body mass index [BMI] 19.9 or less, adult; F03.90 Unspecified dementia, unspecified severity, without behavioral disturbance, psychotic disturbance, mood disturbance, and anxiety; D69.6 Thrombocytopenia, unspecified; R63.0 Anorexia; D64.9 Anemia, unspecified; I10 Essential (primary) hypertension; E16.2 Hypoglycemia, unspecified; E87.6 Hypokalemia
CPT/HCPCS: 71010; 76937; 80048; 80053; 81001; 82550; 82552; 82948; 83735; 84100; 84484; 85025; 85730; 87205; 87328; 87329; 87493; 93005; 96360; G0378; G8987-GP; G8988-GP; J1200; J1644; J1650; J3480; J7030

== ENCOUNTER 2017-06-16 13:24 | Inpatient (IN) | payer MEDICARE, OTHER ==
[~2017-06-16] VITALS: Ht 177.8 cm; Wt 84.8 kg
[~2017-06-16 13:24] MED LIST changes: +AMLO10TA2 PO; -DOCU1CAP39 PO; +DONE1TAB63 PO; -ENOX40P SQ; +LACT PO; -LISI-360 PO; +LISI10TA3 PO; -LORTA5 PO; +METO25TA3 PO; -METO25TA6 PO; +VANC500I3 PO
[2017-06-16 13:39] VITALS: BP 110/64; PULSE 94; RESP 18; TEMP 97.7; O2SAT 99
[2017-06-16] MEDS ORDERED: SODIUM CHLORIDE 0.9% FLUSH 10 ML FLUSH IVF PRN (14:00)
[2017-06-16] MEDS ORDERED: SODIUM CHLORID 0.9% 500 ML INJ 500 ML IV ONE (14:00)
--- NOTE | 2017-06-16 14:05 | PD ---
HPI Chief Complaint: General Weakness Time Seen by Provider: 13:54 Travel History International Travel<30 days: No Contact w/Intl Traveler<30days: No Traveled to known affect area: No History of Present Illness HPI Patient is a 86-year-old male with history of dementia, hypertension who presents to emergency room from home for evaluation of generalized weakness. As per EMS, patient's family called as patient was unable to get up from the floor after he had physical therapy today. Family reports that patient has been weak, reports that he had one episode of diarrhea and is concerned for possible C. difficile. Reports the patient was recently admitted to the hospital and treated for C. difficile, he was ultimately discharged May to a rehabilitation facility ([facility]) on Vancomycin PO for treatment of C. difficile. Reports the patient was admitted to [facility] for 10 days, reports that after discharged to home, home rehab has been coming to their home. Reports that he did have rehab today and patient was too weak to get up from the floor after his therapy. Patient at this time is only alert to person, patient with no complaints at this time. He is pleasantly demented, no family at bedside. PFSH Past Medical History Cancer: No Endocrine: No Genitourinary: Yes Hypertension: Yes Immune Disorder: No Kidney Stones: Yes Neurologic: No Psychiatric: No Reproductive: No Respiratory: No Past Surgical History Abdominal Surgery: Yes (APPENDECTOMY) Appendectomy: Yes Tonsillectomy: Yes Social History Alcohol Use: No Tobacco Use: No Substance Use: No Allergies-Medications (Allergen,Severity, Reaction): Coded Allergies: No Known Allergies (Unverified Allergy, Unknown, 06/16/17) Reported Meds & Prescriptions Reported Meds & Active Scripts Active Vancomycin Inj (Vancomycin HCl) 500 Mg Inj 125 Mg PO QID Stop date 06/01/17 Acidophilus/l-Sporogenes (Lactobacillus Acidophilus) 35 Million Cell-25 Million Cell Tab 1 Tab PO TID Reported Amlodipine (Amlodipine Besylate) 10 Mg Tab 10 Mg PO DAILY Metoprolol Tartrate 25 Mg Tab 25 Mg PO DAILY Lisinopril 10 Mg Tab 10 Mg PO DAILY Donepezil 23 Mg Tab 10 Mg PO HS Do not split, crush or chew. Review of Systems ROS Limitations: Poor Historian, Other: (generalized weakness) General / Constitutional: No: Fever Eyes: No: Visual changes HENT: No: Headaches Cardiovascular: No: Chest Pain or Discomfort Respiratory: No: Shortness of Breath Gastrointestinal: Positive: Diarrhea, No: Abdominal Pain Genitourinary: No: Dysuria Musculoskeletal: No: Pain Skin: No Rash Neurologic: No: Weakness Psychiatric: No: Depression Endocrine: No: Polydipsia Hematologic/Lymphatic: No: Easy Bruising Physical Exam Narrative GENERAL: NAD SKIN: Focused skin assessment warm/dry. HEAD: Atraumatic. Normocephalic. EYES: Pupils equal and round. No scleral icterus. No injection or drainage. ENT: No nasal bleeding or discharge. Mucous membranes pink and moist. NECK: Trachea midline. No JVD. CARDIOVASCULAR: Regular rate and rhythm. No murmur appreciated. RESPIRATORY: No accessory muscle use. Clear to auscultation. Breath sounds equal bilaterally. GASTROINTESTINAL: Abdomen soft, non-tender, nondistended. Hepatic and splenic margins not palpable. MUSCULOSKELETAL: No obvious deformities. No clubbing. No cyanosis. No edema. NEUROLOGICAL: Awake and alert. Normal speech. PSYCHIATRIC Pleasantly demented Data Data Last Documented VS Vital Signs Date Time Temp Pulse Resp B/P (MAP) Pulse Ox O2 Delivery O2 Flow Rate FiO2 06/16/17 13:39 97.7 94 18 110/64 (79) 99 Room Air Orders Orders Electrocardiogram (06/16/17 13:55) Complete Blood Count With Diff (06/16/17 13:55) Prothrombin Time / Inr (Pt) (06/16/17 13:55) Act Partial Throm Time (Ptt) (06/16/17 13:55) Ecg Monitoring (06/16/17 13:55) Iv Access Insert/Monitor (06/16/17 13:55) Oximetry (06/16/17 13:55) Sodium Chloride 0.9% Flush (Ns Flush) (06/16/17 14:00) Sodium Chlorid 0.9% 500 Ml Inj (Ns 500 M (06/16/17 14:00) C Diff Toxin Pcr (06/16/17 13:55) Urinalysis - C+S If Indicated (06/16/17 13:55) ^ Straight Catheter (06/16/17 13:55) B-Type Natriuretic Peptide (06/16/17 14:02) Ckmb (Isoenzyme) Profile (06/16/17 14:02) Troponin I (06/16/17 14:02) Comprehensive Metabolic Panel (06/16/17 14:20) Blood Culture (06/16/17 15:13) Lactic Acid Sepsis Protocol (06/16/17 15:13) Sodium Chlor 0.9% 1000 Ml Inj (Ns 1000 M (06/16/17 15:30) CKMB (06/16/17 14:20) CKMB% (06/16/17 14:20) Metronidazole 500 Mg Inj (Flagyl 500 Mg (06/16/17 15:45) Urinary Catheter Insert/Apply (06/16/17 15:41) Labs Laboratory Tests Test 06/16/17 14:20 06/16/17 14:57 06/16/17 15:25 White Blood Count 30.0 TH/MM3 Red Blood Count 4.67 MIL/MM3 Hemoglobin 14.6 GM/DL Hematocrit 44.3 % Mean Corpuscular Volume 94.9 FL Mean Corpuscular Hemoglobin 31.2 PG Mean Corpuscular Hemoglobin Concent 32.9 % Red Cell Distribution Width 14.5 % Platelet Count 151 TH/MM3 Mean Platelet Volume 9.0 FL Neutrophils (%) (Auto) 86.2 % Lymphocytes (%) (Auto) 6.0 % Monocytes (%) (Auto) 7.3 % Eosinophils (%) (Auto) 0.1 % Basophils (%) (Auto) 0.4 % Neutrophils # (Auto) 25.8 TH/MM3 Lymphocytes # (Auto) 1.8 TH/MM3 Monocytes # (Auto) 2.2 TH/MM3 Eosinophils # (Auto) 0.0 TH/MM3 Basophils # (Auto) 0.1 TH/MM3 CBC Comment AUTO DIFF Differential Total Cells Counted 100 Neutrophils % (Manual) 77 % Band Neutrophils % 14 % Lymphocytes % 3 % Monocytes % 6 % Neutrophils # (Manual) 27.3 TH/MM3 Differential Comment FINAL DIFF MANUAL Toxic Vacuolation PRESENT Platelet Estimate NORMAL Platelet Morphology Comment NORMAL Prothrombin Time 11.4 SEC Prothromb Time International Ratio 1.1 RATIO Activated Partial Thromboplast Time 20.4 SEC Blood Urea Nitrogen 75 MG/DL Creatinine 5.15 MG/DL Random Glucose 96 MG/DL Total Protein 6.1 GM/DL Albumin 2.3 GM/DL Calcium Level 10.7 MG/DL Alkaline Phosphatase 131 U/L Aspartate Amino Transf (AST/SGOT) 61 U/L Alanine Aminotransferase (ALT/SGPT) 30 U/L Total Bilirubin 1.0 MG/DL Sodium Level 143 MEQ/L Potassium Level 4.8 MEQ/L Chloride Level 108 MEQ/L Carbon Dioxide Level 24.9 MEQ/L Anion Gap 10 MEQ/L Estimat Glomerular Filtration Rate 11 ML/MIN Total Creatine Kinase 1016 U/L Troponin I 0.05 NG/ML B-Type Natriuretic Peptide 33 PG/ML MDM Medical Decision Making Medical Screen Exam Complete: Yes Emergency Medical Condition: Yes Medical Record Reviewed: Yes Interpretation(s) EKG at 1421: NSR at 93bpm, qt/qtc: 345/396, no acute st or t wave changes Vital Signs Date Time Temp Pulse Resp B/P (MAP) Pulse Ox O2 Delivery O2 Flow Rate FiO2 06/16/17 13:39 97.7 94 18 110/64 (79) 99 Room Air Differential Diagnosis C. difficile colitis, dementia, electrolyte abnormality, failure to thrive, uti Narrative Course 86-year-old male with history of dementia, C. difficile colitis, hypertension, presents to emergency room from home with complaints of generalized weakness. As per EMS, family stated that patient was unable to get up from the floor after his home physical therapy today. Patient is only alert to person at this time, no family are at bedside. Patient has no complaints at this time. EMS reported that family were concerned that patient may have recurrent c.diff as he did have 1 episode of diarrhea today. He just completed a course of antibiotics for treatment of c.diff. During the course of the patients emergency department visit, the patients history, examination, and differential diagnosis were reviewed with the patient. The patient was placed on a satellite project site monitor with oximetry and frequent blood pressure monitoring. The patient had an IV access obtained and blood work sent for analysis. The patient was initially provided IV fluids 230pm: Patient's family at bedside, reports that the patient was discharged from [facility] days ago. Reports that since then, physical therapy has been at the house once, home health has been at the house once. Reports that since being at home, he has been getting progressively getting weaker. Patient did have physical therapy yesterday at home, reports that physical therapy left him on the couch yesterday, patient was too weak to ambulate to the bed last night, reports that when he did try to get up, he slid to the floor. His was unable to help him up so she left him on the floor and put a pillow behind his head. Reports that they did change him once this morning - his diaper did have diarrhea. Unsure how many episodes of diarrhea he has had. Reports that overall, he has decreased oral intake, reports that he is too weak to feed himself or perform ADL's. Reports that after he was discharged from [facility], he was stronger but has since decompensated. The patients laboratory studies were reviewed and remarkable for : Laboratory Tests Test 06/16/17 14:20 06/16/17 14:57 06/16/17 15:25 White Blood Count 30.0 TH/MM3 (4.0-11.0) Red Blood Count 4.67 MIL/MM3 (4.50-5.90) Hemoglobin 14.6 GM/DL (13.0-17.0) Hematocrit 44.3 % (39.0-51.0) Mean Corpuscular Volume 94.9 FL (80.0-100.0) Mean Corpuscular Hemoglobin 31.2 PG (27.0-34.0) Mean Corpuscular Hemoglobin Concent 32.9 % (32.0-36.0) Red Cell Distribution Width 14.5 % (11.6-17.2) Platelet Count 151 TH/MM3 (150-450) Mean Platelet Volume 9.0 FL (7.0-11.0) Neutrophils (%) (Auto) 86.2 % (16.0-70.0) Lymphocytes (%) (Auto) 6.0 % (9.0-44.0) Monocytes (%) (Auto) 7.3 % (0.0-8.0) Eosinophils (%) (Auto) 0.1 % (0.0-4.0) Basophils (%) (Auto) 0.4 % (0.0-2.0) Neutrophils # (Auto) 25.8 TH/MM3 (1.8-7.7) Lymphocytes # (Auto) 1.8 TH/MM3 (1.0-4.8) Monocytes # (Auto) 2.2 TH/MM3 (0-0.9) Eosinophils # (Auto) 0.0 TH/MM3 (0-0.4) Basophils # (Auto) 0.1 TH/MM3 (0-0.2) CBC Comment AUTO DIFF Differential Total Cells Counted 100 Neutrophils % (Manual) 77 % (16-70) Band Neutrophils % 14 % (0-6) Lymphocytes % 3 % (9-44) Monocytes % 6 % (0-8) Neutrophils # (Manual) 27.3 TH/MM3 (1.8-7.7) Differential Comment FINAL DIFF MANUAL Toxic Vacuolation PRESENT (NONE SEEN) Platelet Estimate NORMAL (NORMAL) Platelet Morphology Comment NORMAL (NORMAL) Prothrombin Time 11.4 SEC (9.8-11.6) Prothromb Time International Ratio 1.1 RATIO Activated Partial Thromboplast Time 20.4 SEC (24.3-30.1) Blood Urea Nitrogen 75 MG/DL (7-18) Creatinine 5.15 MG/DL (0.60-1.30) Random Glucose 96 MG/DL (74-106) Total Protein 6.1 GM/DL (6.4-8.2) Albumin 2.3 GM/DL (3.4-5.0) Calcium Level 10.7 MG/DL (8.5-10.1) Alkaline Phosphatase 131 U/L (45-117) Aspartate Amino Transf (AST/SGOT) 61 U/L (15-37) Alanine Aminotransferase (ALT/SGPT) 30 U/L (12-78) Total Bilirubin 1.0 MG/DL (0.2-1.0) Sodium Level 143 MEQ/L (136-145) Potassium Level 4.8 MEQ/L (3.5-5.1) Chloride Level 108 MEQ/L (98-107) Carbon Dioxide Level 24.9 MEQ/L (21.0-32.0) Anion Gap 10 MEQ/L (5-15) Estimat Glomerular Filtration Rate 11 ML/MIN (>89) Total Creatine Kinase 1016 U/L (39-308) Troponin I 0.05 NG/ML (0.02-0.05) B-Type Natriuretic Peptide 33 PG/ML (0-100) Urine Color YELLOW (YELLW/STRAW) Urine Turbidity HAZY (CLEAR) Urine pH 5.0 (5.0-8.5) Urine Specific [place] 1.018 (1.002-1.035) Urine Protein 30 mg/dL (NEG-TRACE) Urine Glucose (UA) NEG mg/dL (NEG) Urine Ketones NEG mg/dL (NEG) Urine Occult Blood SMALL (NEG) Urine Nitrite NEG (NEG) Urine Bilirubin NEG (NEG) Urine Urobilinogen 2.0 MG/DL (LESS THAN Urine Leukocyte Esterase NEG (NEG) Urine RBC 3 /hpf (0-3) Urine WBC 2 /hpf (0-5) Urine Amorphous Sediment RARE Urine Bacteria RARE /hpf (NONE) Urine Hyaline Casts 8 /lpf (RARE) Urine Mucus FEW /lpf (OCC) Microscopic Urinalysis Comment CATH-CULTURE IND Patient with a white blood cell count of 30,000, 14 bands, patient also tachycardic, patient with sepsis criteria likely due to C. difficile colitis. C. difficile cultures are pending. Patient was treated with IV Flagyl preventively for C. difficile colitis Patient also with renal failure, creatinine is 5.15, patient's baseline creatinine 0.94. A [place]ry catheter was placed to measure strict I's and O's. I reviewed need for admission to the hospital with patient's as well as daughter for at bedside Critical Care Narrative Aggregate critical care time was 30 minutes. Time to perform other separately billable procedures was not included in the critical care time. My time did not include minutes spent treating any other patients simultaneously or on activities that did not directly contribute to the patient's treatment. The services I provided to this patient were to treat and/or prevent clinically significant deterioration that could result in: , decompensation, deterioration I provided critical care services requiring my management, as noted below: Chart data review, documentation time, medication orders and management, vital sign assessments/reviewing monitor data, ordering and reviewing lab tests, ordering and interpreting/reviewing x-rays and diagnostic studies, care of the patient and discussion of the patient with the admitting physicians. Diagnosis Primary Impression: Sepsis Additional Impressions: Colitis Renal failure Failure to thrive in adult Admitting Information Admitting Physician Requests: it Mary Rizzo DO Jun 16, 2017 14:05
[2017-06-16 14:52] LABS: AUTOMATED NEUTROPHIL # 25.8 TH/MM3 (1.8-7.7); BASOPHIL # 0.1 TH/MM3 (0-0.2); BASOPHIL % 0.4 % (0.0-2.0); EOSINOPHIL % 0.1 % (0.0-4.0); HEMATOCRIT 44.3 % (39.0-51.0); LYMPHOCYTE # 1.8 TH/MM3 (1.0-4.8); MEAN CELL VOLUME 94.9 FL (80.0-100.0); MEAN CORPUSCULAR HEMOGLOBIN 31.2 PG (27.0-34.0); MEAN CORPUSCULAR HGB CONC 32.9 % (32.0-36.0); MONO % 7.3 % (0.0-8.0); NEUT % 86.2 % (16.0-70.0); PLATELET COUNT 151 TH/MM3 (150-450); RED BLOOD COUNT 4.67 MIL/MM3 (4.50-5.90); RED CELL DISTRIBUTION WIDTH 14.5 % (11.6-17.2)
[2017-06-16 14:57] LABS: HEMO FLAGS AUTO DIFF
[2017-06-16 15:20] LABS: APTT (PATIENT) 20.4 SEC (24.3-30.1); INTERNATIONAL NORMALIZED RATIO 1.1 RATIO; PROTHROMBIN TIME - PATIENT 11.4 SEC (9.8-11.6)
[2017-06-16 15:21] LABS: ANION GAP 10 MEQ/L (5-15)
[2017-06-16 15:27] LABS: BANDS 14 % (0-6); NEUTROPHIL # MANUAL DIFF 27.3 TH/MM3 (1.8-7.7); POLYS (SEG NEUTROPHILS) 77 % (16-70); WBC DIFF SAMPLE 100
[2017-06-16 15:28] LABS: PLATELET ESTIMATE SMEAR NORMAL (NORMAL); PLATELET MORPHOLOGY NORMAL (NORMAL); SCAN/DIFF FINAL DIFF MANUAL; TOXIC VACUOLATION PRESENT (NONE SEEN)
[2017-06-16] MEDS ORDERED: SODIUM CHLOR 0.9% 1000 ML INJ 1,000 ML IV ONE ×2 (15:30→15:45)
[2017-06-16 15:32] LABS: ALKALINE PHOSPHATASE 131 U/L (45-117); ALT (GPT) 30 U/L (12-78); AST (GOT) 61 U/L (15-37); BICARBONATE 24.9 MEQ/L (21.0-32.0); BLOOD UREA NITROGEN 75 MG/DL (7-18); CHLORIDE 108 MEQ/L (98-107); CREATINE KINASE 1016 U/L (39-308); GLOMERULAR FILTRATION RATE 11 ML/MIN (>89); POTASSIUM 4.8 MEQ/L (3.5-5.1); SODIUM (NA) 143 MEQ/L (136-145)
[2017-06-16 15:40] LABS: BACTERIA, URINE RARE /hpf; BLOOD, URINE SMALL (NEG); GLUCOSE,URINE NEG (NEG); HYALINE CAST, URINE 8 /lpf (RARE); KETONE, URINE NEG (NEG); MUCUS URINE FEW /lpf (OCC); NITRITE,URINE NEG (NEG); URINE COLOR YELLOW (YELLW/STRAW)
[2017-06-16 15:42] LABS: COMMENT (UR) CATH-CULTURE IND; CULTURE IF INDICATED CATH CULTURE IND
[2017-06-16 15:44] LABS: CKMB 6.5 NG/ML (0.5-3.6)
[2017-06-16 15:45] VITALS: BP 128/60; PULSE 119; RESP 18; O2SAT 99
[2017-06-16] MEDS ORDERED: metroNIDAZOLE 500 MG INJ 100 ML IV ONE (15:45)
[2017-06-16] MEDS ORDERED: SENNOSIDES 8.6 MG TAB PO PRN (16:00)
[2017-06-16] MEDS ORDERED: NALOXONE HCL 0.4 MG/ML AMP IV PUSH PRN (16:00)
[2017-06-16] MEDS ORDERED: SODIUM CHLORIDE 0.9% FLUSH 10 ML FLUSH IV FLUSH PRN (16:00)
[2017-06-16] MEDS ORDERED: TEMAZEPAM 15 MG CAP PO PRN (16:00)
[2017-06-16] MEDS ORDERED: ONDANSETRON HCL 4 MG/2 ML VIAL IVP PRN (16:00)
[2017-06-16] MEDS ORDERED: MAGNESIUM HYDROXIDE SUSP 30 ML CUP PO PRN (16:00)
[2017-06-16] MEDS ORDERED: BISACODYL 10 MG SUPP RECTAL PRN (16:00)
[2017-06-16] MEDS ORDERED: LACTULOSE SYRUP 20 GM/30 ML CUP PO PRN (16:00)
[2017-06-16 17:33] LABS: LACTIC ACID GHOST NOT REPORTABLE
[2017-06-16 17:40] VITALS: BP 137/74; PULSE 121; RESP 18; O2SAT 96
--- NOTE | 2017-06-16 17:41 | PD.CONS ---
[facility] Service Nephrology Consult Requested By Dr. Verdugo Reason for Consult ZOLTAN Primary Care Physician Jose Jc MD History of Present Illness The patient is an 86 yo [place] male who was brought to this facility via [facility] 06/16 for progressive weakness. and daughter present at bedside. Reports recent admission in May for C diff colitis and was discharged on 05/21 to [facility] where he spent approximately 20 days with rehab. Has been home since and receiving PT. states that he fell last evening at home at approximately 2000 and laid on the floor until this AM as she could not lift him and thusly called [facility]. Despite finishing abx, he has been having continued diarrhea at home. also endorses poor appetite and significant weakness. Had recent increase in Lisinopril by his PCP as BP been elevated. Denies any NSAID use at home. Admitting SCr of 5.15. Discharge SCr on 05/21 visit of 0.94. No known hx of CKD. (Isha Walters) Review of Systems ROS Limitations: Altered Mental Status (has underlying dementia. ) Constitutional: COMPLAINS OF: Change in appetite Gastrointestinal: COMPLAINS OF: Diarrhea (Isha Walters) Past Family Social History Allergies: Coded Allergies: No Known Allergies (Unverified Allergy, Unknown, 06/16/17) Past Medical History Dementia HTN C. diff colitis Past Surgical History Appendectomy Tonsillectomy Reported Medications Vancomycin Inj (Vancomycin HCl) 500 Mg Inj 125 Mg PO QID Stop date 06/01/17 Acidophilus/l-Sporogenes (Lactobacillus Acidophilus) 35 Million Cell-25 Million Cell Tab 1 Tab PO TID Amlodipine (Amlodipine Besylate) 10 Mg Tab 10 Mg PO DAILY Metoprolol Tartrate 25 Mg Tab 25 Mg PO DAILY Lisinopril 10 Mg Tab 10 Mg PO DAILY Donepezil 23 Mg Tab 10 Mg PO HS Do not split, crush or chew. Active Ordered Medications Current Medications Medications (Trade) Dose Ordered Sig/Wang Route Start Time Stop Time Status Last Admin (VANCOMYCIN for oral use only) 250 mg QID PO 06/16/17 18:00 (Norvasc) 10 mg DAILY PO 06/17/17 09:00 (Aricept) 10 mg HS PO 06/16/17 21:00 (Lactinex) 1 tab TID PO 06/16/17 18:00 (Prinivil) 10 mg DAILY PO 06/17/17 09:00 (Lopressor) 25 mg DAILY PO 06/17/17 09:00 Sodium Chloride 1,000 ml @ 100 mls/hr Q10H IV 06/16/17 16:00 06/16/17 17:45 (NS Flush) 2 ml UNSCH PRN IV FLUSH 06/16/17 16:00 (NS Flush) 2 ml BID IV FLUSH 06/16/17 21:00 (Zofran Inj) 4 mg Q6H PRN IVP 06/16/17 16:00 (Restoril) 15 mg HS PRN PO 06/16/17 16:00 (Lovenox Inj) 30 mg Q24H SQ 06/16/17 17:00 06/16/17 17:45 (Narcan Inj) 0.4 mg UNSCH PRN IV PUSH 06/16/17 16:00 (Brii-Colace) 1 tab BID PO 06/16/17 21:00 (Milk Of Magnesia Liq) 30 ml Q12H PRN PO 06/16/17 16:00 (Senokot) 17.2 mg Q12H PRN PO 06/16/17 16:00 (Dulcolax Supp) 10 mg DAILY PRN RECTAL 06/16/17 16:00 (Lactulose Liq) 30 ml DAILY PRN PO 06/16/17 16:00 Family History NC Social History Lives at home with Denies EtOH No illicits No tobacco use (Isha Walters) Physical Exam Vital Signs Vital Signs Date Time Temp Pulse Resp B/P (MAP) Pulse Ox O2 Delivery O2 Flow Rate FiO2 06/16/17 15:45 119 18 128/60 (82) 99 Room Air 06/16/17 13:39 97.7 94 18 110/64 (79) 99 Room Air Physical Exam GENERAL: Frail, elderly gentleman in NAD. SKIN: Warm and dry. HEAD: Atraumatic. Normocephalic. EYES: Pupils equal and round. No scleral icterus. No injection or drainage. ENT: No nasal bleeding or discharge. Mucous membranes pink and moist. NECK: Trachea midline. No JVD. CARDIOVASCULAR: Regular rate and rhythm. RESPIRATORY: No accessory muscle use. Clear to auscultation. Breath sounds equal bilaterally. GASTROINTESTINAL: Abdomen soft, non-tender, nondistended. Hepatic and splenic margins not palpable. MUSCULOSKELETAL: Extremities without clubbing, cyanosis, trace in ankles only NEUROLOGICAL: Awake but tired Laboratory Laboratory Tests Test 06/16/17 14:20 06/16/17 14:57 06/16/17 15:00 06/16/17 15:25 White Blood Count 30.0 Red Blood Count 4.67 Hemoglobin 14.6 Hematocrit 44.3 Mean Corpuscular Volume 94.9 Mean Corpuscular Hemoglobin 31.2 Mean Corpuscular Hemoglobin Concent 32.9 Red Cell Distribution Width 14.5 Platelet Count 151 Mean Platelet Volume 9.0 Neutrophils (%) (Auto) 86.2 Lymphocytes (%) (Auto) 6.0 Monocytes (%) (Auto) 7.3 Eosinophils (%) (Auto) 0.1 Basophils (%) (Auto) 0.4 Neutrophils # (Auto) 25.8 Lymphocytes # (Auto) 1.8 Monocytes # (Auto) 2.2 Eosinophils # (Auto) 0.0 Basophils # (Auto) 0.1 CBC Comment AUTO DIFF Differential Total Cells Counted 100 Neutrophils % (Manual) 77 Band Neutrophils % 14 Lymphocytes % 3 Monocytes % 6 Neutrophils # (Manual) 27.3 Differential Comment FINAL DIFF MANUAL Toxic Vacuolation PRESENT Platelet Estimate NORMAL Platelet Morphology Comment NORMAL Prothrombin Time 11.4 Prothromb Time International Ratio 1.1 Activated Partial Thromboplast Time 20.4 Blood Urea Nitrogen 75 Creatinine 5.15 Random Glucose 96 Total Protein 6.1 Albumin 2.3 Calcium Level 10.7 Alkaline Phosphatase 131 Aspartate Amino Transf (AST/SGOT) 61 Alanine Aminotransferase (ALT/SGPT) 30 Total Bilirubin 1.0 Sodium Level 143 Potassium Level 4.8 Chloride Level 108 Carbon Dioxide Level 24.9 Anion Gap 10 Estimat Glomerular Filtration Rate 11 Total Creatine Kinase 1016 Creatine Kinase MB 6.5 Creatine Kinase MB % 0.6 Troponin I 0.05 B-Type Natriuretic Peptide 33 Urine Color YELLOW Urine Turbidity HAZY Urine pH 5.0 Urine Specific [place] 1.018 Urine Protein 30 Urine Glucose (UA) NEG Urine Ketones NEG Urine Occult Blood SMALL Urine Nitrite NEG Urine Bilirubin NEG Urine Urobilinogen 2.0 Urine Leukocyte Esterase NEG Urine RBC 3 Urine WBC 2 Urine Amorphous Sediment RARE Urine Bacteria RARE Urine Hyaline Casts 8 Urine Mucus FEW Microscopic Urinalysis Comment CATH-CULTURE IND Lactic Acid Level 2.2 Test 06/16/17 16:45 Lactic Acid Level 2.4 Date/Time Source Procedure Growth Status 06/16/17 15:25 Blood Peripheral Aerobic Blood Culture Pending Received 06/16/17 15:25 Blood Peripheral Anaerobic Blood Culture Pending Received 06/16/17 14:57 Urine Catheterized Urine Urine Culture Pending Received (Isha Walters) Result Diagram: 06/16/17 1420 06/16/17 1420 Assessment and Plan Problem List: (1) Renal failure ICD Codes: N19 - Unspecified kidney failure Status: Acute Plan: Appears ZOLTAN related to volume depletion in setting of dehydration from diarrhea. Recent increase in ACEi likely also contributing. Agree with IVF Check renal US Hold ACEi Will continue to follow. He did not have any underlying CKD prior to this admission, so we are hopeful his renal functions will improve with hydration status; however, it remains to be seen if ATN has occurred Medications should be adjusted for the patient's renal dysfunction. Avoid nephrotoxic agents such as iodinated contrast dyes and NSAIDs. Avoid gadolinium. (2) C. difficile colitis ICD Codes: A04.72 - Enterocolitis due to Clostridium difficile, not specified as recurrent Plan: Recent dx. Repeat stool pending (3) Failure to thrive in adult ICD Codes: R62.7 - Adult failure to thrive Status: Acute (4) HTN (hypertension) ICD Codes: I10 - Essential (primary) hypertension Plan: Hold ACEi. Continue on Amlodipine and Metoprolol (5) Dementia ICD Codes: F03.90 - Unspecified dementia without behavioral disturbance (Isha Walters) Assessment and Plan The exam, history, and the medical decision-making described in the above note were completed with the assistance of the PAElia. I reviewed and agree with the findings presented. I attest that I had a [id number] encounter with the patient on the same day, and personally performed and documented my assessment and findings in the medical record. (Radha Cuevas MD) Isha Walters Jun 16, 2017 17:41 Radha Cuevas MD Jun 18, 2017 14:49
[2017-06-16] MEDS: ENOXAPARIN SODIUM 30 MG/0.3 ML SYRINGE SQ SCH (17:45)
[2017-06-16] MEDS: SODIUM CHLOR 0.9% 1000 ML INJ 1,000 ML IV SCH (17:45)
[2017-06-16] MEDS: LACTOBACILLUS ACIDOPHILUS TAB PO SCH (18:00)
[2017-06-16] MEDS: VANCOMYCIN 500 MG VIAL (FOR ORAL USE ONLY) PO SCH ×2 (18:00→21:00)
[2017-06-16 18:19] LABS: C. DIFF EPI 027 PRESUMPTIVE NEGATIVE (NEGATIVE)
--- NOTE | 2017-06-16 18:32 | HHI.HP ---
HPI Service [facility] Primary Care Physician Jose Jc MD Admission Diagnosis Sepsis, Acute Renal Failure Diagnoses: Chief Complaint: weakness, altered mental status Travel History International Travel<30 Days: No Contact w/Intl Traveler <30 Da: No Traveled to Known Affected Are: No History of Present Illness Patient is a 86-year-old male with history of dementia, hypertension who presents to emergency room from home for evaluation of generalized weakness. As per EMS, patient's family called as patient was unable to get up from the floor after he had physical therapy today. Family reports that patient has been weak, reports that he had one episode of diarrhea and is concerned for possible C. difficile. Reports the patient was recently admitted to the hospital and treated for C. difficile, he was ultimately discharged May to a rehabilitation facility ([facility]) on Vancomycin PO for treatment of C. difficile. Reports the patient was admitted to [facility] [address] for 10 days, reports that after discharged to home, home rehab has been coming to their home. Reports that he did have rehab today and patient was too weak to get up from the floor after his therapy. Patient at this time is only alert to person, patient with no complaints at this time. He is pleasantly demented, no family at bedside. Patient is a poor historian and history obtained form medical records and patient. Has no other complaints except abdominal pain with palpation. He has diarrhea however he is not able to answer how many times a day he had loose stool. No fever or chills. No cp, sob. Review of Systems ROS Limitations: Clinical Condition, Altered Mental Status, Poor Historian Except as stated in HPI: all other systems reviewed are Neg Past Family Social History Past Medical History Dementia HTN C. diff colitis Past Surgical History Appendectomy Tonsillectomy Reported Medications Reported Meds & Active Scripts Active Vancomycin Inj (Vancomycin HCl) 500 Mg Inj 125 Mg PO QID Stop date 06/01/17 Acidophilus/l-Sporogenes (Lactobacillus Acidophilus) 35 Million Cell-25 Million Cell Tab 1 Tab PO TID Reported Amlodipine (Amlodipine Besylate) 10 Mg Tab 10 Mg PO DAILY Metoprolol Tartrate 25 Mg Tab 25 Mg PO DAILY Lisinopril 10 Mg Tab 10 Mg PO DAILY Donepezil 23 Mg Tab 10 Mg PO HS Do not split, crush or chew. Allergies: Coded Allergies: No Known Allergies (Unverified Allergy, Unknown, 06/16/17) Family History Denies Social History Denies EtOH No illicit drug use No tobacco use Physical Exam Vital Signs Vital Signs Date Time Temp Pulse Resp B/P (MAP) Pulse Ox O2 Delivery O2 Flow Rate FiO2 06/16/17 17:40 121 18 137/74 (95) 96 Room Air 06/16/17 15:45 119 18 128/60 (82) 99 Room Air 06/16/17 13:39 97.7 94 18 110/64 (79) 99 Room Air Physical Exam GENERAL: This is a pleasantly confused 86 yo male, well-nourished, well- developed patient, in no apparent distress. SKIN: No rashes, ecchymoses or lesions. Cool and dry. HEAD: Atraumatic. Normocephalic. No temporal or scalp tenderness. EYES: Pupils equal round and reactive. Extraocular motions intact. No scleral icterus. No injection or drainage. ENT: Nose without bleeding, purulent drainage or septal hematoma. Throat without erythema, tonsillar hypertrophy or exudate. Uvula midline. Airway patent. NECK: Trachea midline. No JVD or lymphadenopathy. Supple, nontender, no meningeal signs. CARDIOVASCULAR: Regular rate and rhythm without murmurs, gallops, or rubs. RESPIRATORY: Clear to auscultation. Breath sounds equal bilaterally. No wheezes , rales, or rhonchi. GASTROINTESTINAL: Abdomen soft, diffuse tenderness, nondistended. No guarding. MUSCULOSKELETAL: Extremities without clubbing, cyanosis, or edema. No joint tenderness, effusion, or edema noted. No calf tenderness. Negative Homans sign bilaterally. NEUROLOGICAL: Awake and alert. Cranial nerves II through XII intact. Motor and sensory grossly within normal limits. Normal speech. Laboratory Laboratory Tests Test 06/16/17 14:20 06/16/17 14:57 06/16/17 15:00 06/16/17 15:25 White Blood Count 30.0 Red Blood Count 4.67 Hemoglobin 14.6 Hematocrit 44.3 Mean Corpuscular Volume 94.9 Mean Corpuscular Hemoglobin 31.2 Mean Corpuscular Hemoglobin Concent 32.9 Red Cell Distribution Width 14.5 Platelet Count 151 Mean Platelet Volume 9.0 Neutrophils (%) (Auto) 86.2 Lymphocytes (%) (Auto) 6.0 Monocytes (%) (Auto) 7.3 Eosinophils (%) (Auto) 0.1 Basophils (%) (Auto) 0.4 Neutrophils # (Auto) 25.8 Lymphocytes # (Auto) 1.8 Monocytes # (Auto) 2.2 Eosinophils # (Auto) 0.0 Basophils # (Auto) 0.1 CBC Comment AUTO DIFF Differential Total Cells Counted 100 Neutrophils % (Manual) 77 Band Neutrophils % 14 Lymphocytes % 3 Monocytes % 6 Neutrophils # (Manual) 27.3 Differential Comment FINAL DIFF MANUAL Toxic Vacuolation PRESENT Platelet Estimate NORMAL Platelet Morphology Comment NORMAL Prothrombin Time 11.4 Prothromb Time International Ratio 1.1 Activated Partial Thromboplast Time 20.4 Blood Urea Nitrogen 75 Creatinine 5.15 Random Glucose 96 Total Protein 6.1 Albumin 2.3 Calcium Level 10.7 Alkaline Phosphatase 131 Aspartate Amino Transf (AST/SGOT) 61 Alanine Aminotransferase (ALT/SGPT) 30 Total Bilirubin 1.0 Sodium Level 143 Potassium Level 4.8 Chloride Level 108 Carbon Dioxide Level 24.9 Anion Gap 10 Estimat Glomerular Filtration Rate 11 Total Creatine Kinase 1016 Creatine Kinase MB 6.5 Creatine Kinase MB % 0.6 Troponin I 0.05 B-Type Natriuretic Peptide 33 Urine Color YELLOW Urine Turbidity HAZY Urine pH 5.0 Urine Specific [place] 1.018 Urine Protein 30 Urine Glucose (UA) NEG Urine Ketones NEG Urine Occult Blood SMALL Urine Nitrite NEG Urine Bilirubin NEG Urine Urobilinogen 2.0 Urine Leukocyte Esterase NEG Urine RBC 3 Urine WBC 2 Urine Amorphous Sediment RARE Urine Bacteria RARE Urine Hyaline Casts 8 Urine Mucus FEW Microscopic Urinalysis Comment CATH-CULTURE IND Lactic Acid Level 2.2 Test 06/16/17 16:45 Lactic Acid Level 2.4 Date/Time Source Procedure Growth Status 06/16/17 15:25 Blood Peripheral Aerobic Blood Culture Pending Received 06/16/17 15:25 Blood Peripheral Anaerobic Blood Culture Pending Received 06/16/17 14:57 Urine Catheterized Urine Urine Culture Pending Received Result Diagram: 06/16/17 14206/16/17 142 Caprini VTE Risk Assessment Caprini VTE Risk Assessment: Mod/High Risk (score >= 2) Caprini Risk Assessment Model Point Value = 1 Point Value = 2 Point Value = 3 Point Value = 5 Age 41-60 Minor surgery BMI > 25 kg/m2 Swollen legs Varicose veins or History of unexplained or recurrent spontaneous Oral contraceptives or hormone replacement Sepsis (< 1 month) Serious lung disease, including pneumonia (< 1 month) Abnormal pulmonary function Acute myocardial infarction Congestive heart failure (< 1 month) History of inflammatory bowel disease Medical patient at bed rest Age 61-74 Arthroscopic surgery Major open surgery (> 45 min) Laparoscopic surgery (> 45 min) Malignancy Confined to bed (> 72 hours) Immobilizing plaster cast Central venous access Age >= 75 History of VTE Family history of VTE Factor V Leiden Prothrombin [id number] Lupus anticoagulant Anticardiolipin antibodies Elevated serum homocysteine Heparin-induced thrombocytopenia Other congenital or acquired thrombophilia Stroke (< 1 month) Elective arthroplasty Hip, pelvis, or leg fracture Acute spinal cord injury (< 1 month) Prophylaxis Regimen Total Risk Factor Score Risk Level Prophylaxis Regimen 0-1 Low Early ambulation 2 Moderate Order ONE of the following: *Sequential Compression Device (SCD) *Heparin 5000 units SQ BID 3-4 Higher Order ONE of the following medications: *Heparin 5000 units SQ TID *Enoxaparin/Lovenox 40 mg SQ daily (WT < 150 kg, CrCl > 30 mL/min) *Enoxaparin/Lovenox 30 mg SQ daily (WT < 150 kg, CrCl > 10-29 mL/min) *Enoxaparin/Lovenox 30 mg SQ BID (WT < 150 kg, CrCl > 30 mL/min) AND/OR *Sequential Compression Device (SCD) 5 or more Highest Order ONE of the following medications: *Heparin 5000 units SQ TID (Preferred with Epidurals) *Enoxaparin/Lovenox 40 mg SQ daily (WT < 150 kg, CrCl > 30 mL/min) *Enoxaparin/Lovenox 30 mg SQ daily (WT < 150 kg, CrCl > 10-29 mL/min) *Enoxaparin/Lovenox 30 mg SQ BID (WT < 150 kg, CrCl > 30 mL/min) AND *Sequential Compression Device (SCD) Assessment and Plan Assessment and Plan Renal failure Appears ZOLTAN related to volume depletion in setting of dehydration from diarrhea. Recent increase in ACEi likely also contributing. Agree with IVF Check renal US Hold ACEI Consult nephrology, appreciate recommendations Medications should be adjusted for the patient's renal dysfunction. Avoid nephrotoxic agents such as iodinated contrast dyes and NSAIDs. Avoid gadolinium. Sepsis with C. difficile colitis with tachycardia, leukocytosis, LA on admission. Monitor CBC, LA he was treated with PO vanco and finished course of antibiotic. Continue vancomycin PO Ask ID on consult as patient with failed treatment Repeat stool pending Failure to thrive in adult- swallow evaluation Physical deconditioning Consult PT HTN (hypertension) Hold ACEI Continue on Amlodipine and Metoprolol Dementia Continue home meds DVT ppx SCD/TEDS Discussed Condition With Patient, nurse, ER physician Physician Certification 2 Midnight Certification Type: Admission for Inpatient Services Order for Inpatient Services The services are ordered in accordance with Medicare regulations or non- Medicare payer requirements, as applicable. In the case of services not specified as inpatient-only, they are appropriately provided as inpatient services in accordance with the 2-midnight benchmark. Estimated LOS (days): 3 days is the estimated time the patient will need to remain in the hospital, assuming treatment plan goals are met and no additional complications. Post-Hospital Plan: [facility] Vianey Verdugo MD Jun 16, 2017 18:32
[2017-06-16 19:09] LABS: LACTIC ACID GHOST NOT REPORTABLE
[2017-06-16 20:01] VITALS: BP 135/87; PULSE 103; RESP 18; TEMP 97.9; O2SAT 94
[2017-06-16] MEDS: SODIUM CHLORIDE 0.9% FLUSH 10 ML FLUSH IV FLUSH SCH (21:00)
[2017-06-16] MEDS: DOCUSATE SODIUM 50 MG/SENNA 8.6 MG TAB PO SCH (21:00)
[2017-06-16] MEDS: DONEPEZIL HCL 5 MG TAB PO SCH (21:00)
--- NOTE | 2017-06-16 21:59 | RADRPT ---
EXAM DATE/TIME: 06/16/2017 20:41 [facility] COMPARISON: No previous studies available for comparison. INDICATIONS : Increased BUN/Creatinine. MEDICAL HISTORY : Aneurysm, abdominal. Hypertension. Renal calculi. C.diff. Dementia. SURGICAL HISTORY : Appendectomy. Tonsillectomy. Left femur repair. ENCOUNTER: Initial ACUITY: 1 day PAIN SCORE: 0/10 LOCATION: Bilateral flank MEASUREMENTS: RIGHT KIDNEY: 10.1 x 4.9 x 6.0 cm LEFT KIDNEY: 10.1 x 5.6 x 5.9 cm FINDINGS: RIGHT KIDNEY: Renal cortex is normal in thickness and echotexture. No hydronephrosis, stone, or mass. LEFT KIDNEY: Renal cortex is normal in thickness and echotexture. No hydronephrosis, stone, or mass. BLADDER: Within normal limits given the degree of distension. CONCLUSION: No acute disease. Suhas Terrazas MD on June 16, 2017 at 21:56 Board Certified Radiologist. This report was verified electronically.
[2017-06-16 23:01] VITALS: BP 142/78; PULSE 102; RESP 18; TEMP 97.9; O2SAT 95
[2017-06-17] VITALS (23 sets, daily range): BP systolic 117–149; BP diastolic 51–75; PULSE 54–132; RESP 14–18; TEMP 97.4–98.5; O2SAT 9–100
[2017-06-17] MEDS: SODIUM CHLOR 0.9% 1000 ML INJ 1,000 ML IV SCH (02:00)
[2017-06-17 06:57] LABS: AUTOMATED NEUTROPHIL # 22.4 TH/MM3 (1.8-7.7); BASOPHIL % 0.1 % (0.0-2.0); EOSINOPHIL % 0.1 % (0.0-4.0); HEMATOCRIT 41.5 % (39.0-51.0); HEMO FLAGS DIFF FINAL; LYMPHOCYTE # 1.5 TH/MM3 (1.0-4.8); MEAN CELL VOLUME 95.2 FL (80.0-100.0); MEAN CORPUSCULAR HEMOGLOBIN 31.4 PG (27.0-34.0); MONO % 6.1 % (0.0-8.0); NEUT % 87.7 % (16.0-70.0); PLATELET COUNT 122 TH/MM3 (150-450); RED BLOOD COUNT 4.35 MIL/MM3 (4.50-5.90); RED CELL DISTRIBUTION WIDTH 14.4 % (11.6-17.2); WHITE BLOOD COUNT 25.6 TH/MM3 (4.0-11.0)
[2017-06-17 07:16] LABS: POTASSIUM 3.8 MEQ/L (3.5-5.1)
--- NOTE | 2017-06-17 07:44 | HHI.PR ---
Subjective Remarks Patient in bed, pleasantly confused, doesn't appear in distress at this time. Pernicious he had diarrhea all times. No fever or chills. Denies any chest pain or shortness of breath no abdominal pain however he is tender on palpation. Objective Vitals Vital Signs Date Time Temp Pulse Resp B/P (MAP) Pulse Ox O2 Delivery O2 Flow Rate FiO2 06/17/17 03:01 97.4 102 18 143/74 (97) 92 06/16/17 23:16 21 06/16/17 23:01 97.9 102 18 142/78 (99) 95 06/16/17 20:01 97.9 103 18 135/87 (103) 94 06/16/17 19:52 06/16/17 17:40 121 18 137/74 (95) 96 Room Air 06/16/17 15:45 119 18 128/60 (82) 99 Room Air 06/16/17 13:39 97.7 94 18 110/64 (79) 99 Room Air I/O 06/16/17 06/16/17 06/16/17 06/17/17 06/17/17 06/17/17 07:00 15:00 23:00 07:00 15:00 23:00 Intake Total 1111 ml Output Total 10 ml 150 ml Balance -10 ml -150 ml 1111 ml Intake IV Total 1111 ml Output Urine Total 10 ml Stool Total 150 ml # Voids 2 2 # Bowel Movements 1 1 3 Result Diagram: 06/17/17 0507 06/17/17 0507 Imaging Last Impressions Renal Ultrasound 06/16/17 0000 Signed Impressions: Service Date/Time: Friday, June 16, 2017 20:41 - CONCLUSION: No acute disease. Suhas Terrazas MD Objective Remarks GENERAL: This is a pleasantly confused 86 yo male, well-nourished, well- developed patient, in no apparent distress. SKIN: No rashes, ecchymoses or lesions. Cool and dry. HEAD: Atraumatic. Normocephalic. No temporal or scalp tenderness. EYES: Pupils equal round and reactive. Extraocular motions intact. No scleral icterus. No injection or drainage. ENT: Nose without bleeding, purulent drainage or septal hematoma. Throat without erythema, tonsillar hypertrophy or exudate. Uvula midline. Airway patent. NECK: Trachea midline. No JVD or lymphadenopathy. Supple, nontender, no meningeal signs. CARDIOVASCULAR: Regular rate and rhythm without murmurs, gallops, or rubs. RESPIRATORY: Clear to auscultation. Breath sounds equal bilaterally. No wheezes , rales, or rhonchi. GASTROINTESTINAL: Abdomen soft, diffuse tenderness, nondistended. No guarding. MUSCULOSKELETAL: Extremities without clubbing, cyanosis, or edema. No joint tenderness, effusion, or edema noted. No calf tenderness. Negative Homans sign bilaterally. NEUROLOGICAL: Awake and alert. Cranial nerves II through XII intact. Motor and sensory grossly within normal limits. Normal speech. A/P Assessment and Plan Renal failure. Kidney function is improving monitor closely Appears ZOLTAN related to volume depletion in setting of dehydration from diarrhea. Recent increase in ACEI likely also contributing. Agree with IVF Check renal US Hold ACEI Consult nephrology, appreciate recommendations Medications should be adjusted for the patient's renal dysfunction. Avoid nephrotoxic agents such as iodinated contrast dyes and NSAIDs. Avoid gadolinium. Sepsis with C. difficile colitis with tachycardia, leukocytosis, LA on admission. Monitor CBC, LA. LA back to normal. WBC trending down. Hypernatremia will switch to half NS , monitor Na level. Also give Free water he was treated with PO vanco and finished course of antibiotic. Continue vancomycin PO Ask ID on consult as patient with failed treatment as OP, persistent cdiff colitis -sepsis Repeat stool positive Cdiff Bllod cultures and urine cultures pending Failure to thrive in adult- swallow evaluation . Consult paper bag machine operator, Check prealbumin Severe protein calorie malnutrition. Frail cachectic weak handgrip, low albumin at 2. Consult paper bag machine operator. Patient with cdiff colitis Physical deconditioning Consult PT HTN (hypertension) Hold ACEI Continue on Amlodipine and Metoprolol Dementia Continue home meds DVT ppx SCD/TEDS Discussed Condition With Patient, nurse Vianey Verdugo MD Jun 17, 2017 07:44
[2017-06-17] MEDS ORDERED: PNEUMOCOCCAL POLYVALENT INJ 25 MCG/0.5 ML SYR IM ONE (09:00)
[2017-06-17] MEDS ORDERED: LISINOPRIL 10 MG TAB PO SCH (09:00)
[2017-06-17] MEDS: DOCUSATE SODIUM 50 MG/SENNA 8.6 MG TAB PO SCH ×2 (09:00→20:39)
[2017-06-17] MEDS: SODIUM CHLORIDE 0.9% FLUSH 10 ML FLUSH IV FLUSH SCH ×2 (09:00→20:38)
[2017-06-17] MEDS: SODIUM CHLOR 0.45% 1000 ML INJ 1,000 ML IV SCH ×2 (10:35→19:40)
[2017-06-17] MEDS: LACTOBACILLUS ACIDOPHILUS TAB PO SCH ×3 (10:38→18:00)
[2017-06-17] MEDS: METOPROLOL TARTRATE 25 MG TAB PO SCH (10:38)
[2017-06-17] MEDS: VANCOMYCIN 500 MG VIAL (FOR ORAL USE ONLY) PO SCH ×4 (10:40→20:39)
--- NOTE | 2017-06-17 13:30 | MB ---
cc: CAITLYN ORTEGA MD DATE OF CONSULTATION 06/17/[address] Verdugo REASON FOR CONSULTATION Severe sepsis and C-difficile infection. HISTORY OF PRESENT ILLNESS This is an 86-year-old white male who has a history of dementia. The patient was brought to the emergency department for generalized weakness. His noted that she was having difficulty getting him up. He normally is in bed at home and gets up and goes to the bathroom and spends a lot of time sleeping. The patient was noted to have recurrence of diarrhea. He was recently treated for C-difficile during hospitalization in May. He received treatment for the C-difficile for two weeks and was at a senior living facility and then discharged home. His noted that he started to have diarrhea again and that he was not eating much. She states that it was difficult to quantitate the number of bowel movements, but he was having quite a few on a daily basis. Prior to the first onset of the C-difficile, the patient's noted that he was not on any antibiotics. He is more awake according to the daughter and . Yesterday evening he was not cooperating with the nursing care and was refusing to take his medications. This morning he is awake and alert, but is not verbally communicating much. He denies pain when I examined his abdomen. He indicated that it was painful. Additional information is obtained in the medical record. PAST MEDICAL HISTORY 1. Hypertension 2. Kidney stones 3. Appendectomy 4. Tonsillectomy 5. Dementia 6. Recent C-difficile colitis. ALLERGIES NO KNOWN DRUG ALLERGIES. MEDICATIONS 1. Vancomycin p.o. 2. Lactinex 3. Lovenox 4. Brii-Colace 5. Aricept 6. Lopressor 7. Norvasc SOCIAL HISTORY The patient is . No tobacco, no alcohol. No illicit drugs. FAMILY HISTORY Noncontributory REVIEW OF SYSTEMS Difficult to obtain because the patient does not verbally communicate meaningfully. PHYSICAL EXAMINATION This is a slender male who is in no acute distress. He is awake and appears alert. VITAL SIGNS: Includes a temperature of 97.4, BP 118/60, respirations 14, heart rate 109. HEENT: Head is atraumatic. Extraocular movements grossly intact. No icterus. Oropharynx, the mucosa is moist. NECK: Supple without adenopathy. LUNGS: Clear breath sounds. HEART: Regular S1 and S2 without audible murmurs. ABDOMEN: Bowel sounds diminished, tenderness diffusely. RECTAL: Not performed. EXTREMITIES: No clubbing or cyanosis or edema. SKIN: No rash. NEUROLOGIC: No gross focal findings. PSYCH: Unable to fully assess. LABORATORY DATA WBC 25.6, platelets 122, 87% neutrophils, hemoglobin 13.7. Creatinine 3.9, BUN 78, estimated GFR 15, sodium 150. Urinalysis reveals two white cells. Urine culture pending. Blood cultures, no growth in one day. IMPRESSION 1. C-difficile colitis. This is the second episode in this patient who was recently treated. 2. Leukocytosis secondary to C-difficile. 3. Weakness very likely associated with dehydration. 4. Acute renal failure RECOMMENDATIONS 1. Continue p.o. vancomycin. 2. Monitor stool output. 3. Monitor white blood cell count. 4. Because of the recurrence of the C diff, the patient should be treated with a taper of vancomycin over six weeks period. This can be given as a taper over the six weeks. 5. The plan for treatment has been discussed with the patient's daughter and . Thank you for this consultation. The patient's progress will be followed along with you and further recommendations will be made if necessary. Caitlyn Ortega MD FD/CONNER /12:43 PM /1:06 PM
[2017-06-17] MEDS: ENOXAPARIN SODIUM 30 MG/0.3 ML SYRINGE SQ SCH (16:19)
--- NOTE | 2017-06-17 17:55 | EKG ---
Date Performed: 06/16/2017 Time Performed: 14:21:05 PTAGE: 86 years EKG: Sinus rhythm POSSIBLE INFERIOR MYOCARDIAL INFARCTION Consider inferior myocardial infarction-age undeterminate. A BNORMAL ECG PREVIOUS TRACING : 05/17/2017 18.30 DOCTOR: Nolan Polanco Interpretating Date/Time 06/17/2017 17:54:13
[2017-06-17] MEDS: FREE WATER G-TUBE SCH ×2 (18:00→20:42)
--- NOTE | 2017-06-17 18:21 | HHI.NPPN ---
Subjective History of Present Illness The patient is an 86 yo [place] male who was brought to this facility via [facility] 06/16 for progressive weakness. and daughter present at bedside. Reports recent admission in May for C diff colitis and was discharged on 05/21 to [facility] where he spent approximately 20 days with rehab. Has been home since and receiving PT. states that he fell last evening at home at approximately 2000 and laid on the floor until this AM as she could not lift him and thusly called [facility]. Despite finishing abx, he has been having continued diarrhea at home. also endorses poor appetite and significant weakness. Had recent increase in Lisinopril by his PCP as BP been elevated. Denies any NSAID use at home. Admitting SCr of 5.15. Discharge SCr on 05/21 visit of 0.94. No known hx of CKD. Interval History No family present today Pt non-verbal Review of Systems General General Remarks Unable to assess d/t patient's mentation Objective Data Data Vital Signs Date Time Temp Pulse Resp B/P (MAP) Pulse Ox O2 Delivery O2 Flow Rate FiO2 06/17/17 17:39 77 06/17/17 16:24 97.8 97 14 149/74 (99) 9 06/17/17 16:00 58 06/17/17 15:00 75 06/17/17 14:00 68 06/17/17 13:00 54 06/17/17 12:00 68 06/17/17 11:55 97.4 109 14 118/60 (79) 93 06/17/17 11:00 97 06/17/17 10:00 108 06/17/17 09:42 109 14 134/75 (94) 93 06/17/17 09:08 95 21 06/17/17 09:00 114 06/17/17 08:00 126 06/17/17 07:00 132 06/17/17 03:01 97.4 102 18 143/74 (97) 92 06/16/17 23:16 21 06/16/17 23:01 97.9 102 18 142/78 (99) 95 06/16/17 20:01 97.9 103 18 135/87 (103) 94 06/16/17 19:52 -: 06/17/17 0507 06/17/17 0507 Imaging Last Impressions Renal Ultrasound 06/16/17 0000 Signed Impressions: Service Date/Time: Friday, June 16, 2017 20:41 - CONCLUSION: No acute disease. Suhas Terrazas MD Medication Review Current Medications Medications (Trade) Dose Ordered Sig/Wang Route Start Time Stop Time Status Last Admin (VANCOMYCIN for oral use only) 250 mg QID PO 06/16/17 18:00 06/17/17 16:18 (Norvasc) 10 mg DAILY PO 06/17/17 09:00 06/17/17 10:38 (Aricept) 10 mg HS PO 06/16/17 21:00 (Lactinex) 1 tab TID PO 06/16/17 18:00 06/17/17 16:19 (Lopressor) 25 mg DAILY PO 06/17/17 09:00 06/17/17 10:38 (NS Flush) 2 ml UNSCH PRN IV FLUSH 06/16/17 16:00 (NS Flush) 2 ml BID IV FLUSH 06/16/17 21:00 (Zofran Inj) 4 mg Q6H PRN IVP 06/16/17 16:00 (Restoril) 15 mg HS PRN PO 06/16/17 16:00 (Lovenox Inj) 30 mg Q24H SQ 06/16/17 17:00 06/17/17 16:19 (Narcan Inj) 0.4 mg UNSCH PRN IV PUSH 06/16/17 16:00 (Brii-Colace) 1 tab BID PO 06/16/17 21:00 (Milk Of Magnesia Liq) 30 ml Q12H PRN PO 06/16/17 16:00 (Senokot) 17.2 mg Q12H PRN PO 06/16/17 16:00 (Dulcolax Supp) 10 mg DAILY PRN RECTAL 06/16/17 16:00 (Lactulose Liq) 30 ml DAILY PRN PO 06/16/17 16:00 Sodium Chloride 1,000 ml @ 84 mls/hr [id number] IV 06/17/17 07:45 06/17/17 10:35 (Free Water) 200 ml Q6HR G-TUBE 06/17/17 08:00 Physical Exam General Appearance: No Acute Distress, Comfortable Throat Throat Exam: Oral Mucosa [place] & Moist Neck Neck Exam: Trachea Midline Pulmonary Resp Exam: Clear Bilaterally, Breath Sounds Equal Cardiology CV Exam: Regular Gastrointestinal/Abdomen GI Exam: Soft Integumentary Skin Exam: Clear, Warm Extremeties Extremities Exam: No Edema Neurologic Neuro Exam: Awake Assessment/Plan Problem List: (1) Renal failure ICD Codes: N19 - Unspecified kidney failure Status: Acute Plan: Appears ZOLTAN related to volume depletion in setting of dehydration from diarrhea. Recent increase in ACEi likely also contributing. Renal functions improving slowly IVF changed to 1/2NS today given hypernatremia. Encourage free water intake. Renal US showed no obstructive process. Start Vit D3 We will continue to follow. Medications should be adjusted for the patient's renal dysfunction. Avoid nephrotoxic agents such as iodinated contrast dyes and NSAIDs. Avoid gadolinium. (2) C. difficile colitis ICD Codes: A04.72 - Enterocolitis due to Clostridium difficile, not specified as recurrent Plan: Mgmt as per ID (3) Failure to thrive in adult ICD Codes: R62.7 - Adult failure to thrive Status: Acute (4) HTN (hypertension) ICD Codes: I10 - Essential (primary) hypertension Plan: Hold ACEi. Continue on Amlodipine and Metoprolol (5) Dementia ICD Codes: F03.90 - Unspecified dementia without behavioral disturbance Isha Walters Jun 17, 2017 18:21
[2017-06-17] MEDS: DONEPEZIL HCL 5 MG TAB PO SCH (20:39)
[2017-06-18] VITALS (26 sets, daily range): BP systolic 97–125; BP diastolic 51–68; PULSE 60–114; RESP 18–20; TEMP 96.1–98.3; O2SAT 98–100
[2017-06-18 07:41] LABS: BICARBONATE 20.1 MEQ/L (21.0-32.0); POTASSIUM 3.7 MEQ/L (3.5-5.1)
--- NOTE | 2017-06-18 07:52 | EKG ---
Date Performed: 06/18/2017 Time Performed: 04:36:30 PTAGE: 86 years EKG: Atrial fibrillation with rapid ventricular response with PVC(s) Inferior infarct - age unde termined Possible anterior infarct - age undetermined Nonspecific T wave changes Low QRS voltages in precordial leads Abnormal ECG PREVIOUS TRACING : 06/16/2017 14.21 Compared to prior electrocardiogram, probable atrial fibril lation has replaced Sinus rhythm . DOCTOR: Carson Sheppard Interpretating Date/Time 06/18/2017 07:51:46
[2017-06-18 08:17] LABS: AUTOMATED NEUTROPHIL # 21.2 TH/MM3 (1.8-7.7); BASOPHIL # 0.1 TH/MM3 (0-0.2); BASOPHIL % 0.2 % (0.0-2.0); EOSINOPHIL % 0.1 % (0.0-4.0); HEMATOCRIT 41.1 % (39.0-51.0); LYMPH % 9.5 % (9.0-44.0); LYMPHOCYTE # 2.5 TH/MM3 (1.0-4.8); MEAN CELL VOLUME 94.6 FL (80.0-100.0); MEAN CORPUSCULAR HEMOGLOBIN 30.9 PG (27.0-34.0); MEAN CORPUSCULAR HGB CONC 32.6 % (32.0-36.0); MONO % 10.1 % (0.0-8.0); NEUT % 80.1 % (16.0-70.0); PLATELET COUNT 87 TH/MM3 (150-450); RED BLOOD COUNT 4.35 MIL/MM3 (4.50-5.90); RED CELL DISTRIBUTION WIDTH 14.4 % (11.6-17.2); WHITE BLOOD COUNT 26.4 TH/MM3 (4.0-11.0)
[2017-06-18] MEDS: SODIUM CHLORIDE 0.9% FLUSH 10 ML FLUSH IV FLUSH SCH ×2 (09:00→21:00)
[2017-06-18] MEDS: DOCUSATE SODIUM 50 MG/SENNA 8.6 MG TAB PO SCH ×2 (09:00→21:00)
[2017-06-18] MEDS: CHOLECALCIFEROL (VIT D3) 1000 UNIT TAB PO SCH (09:00)
[2017-06-18] MEDS: LACTOBACILLUS ACIDOPHILUS TAB PO SCH ×3 (09:00→18:30)
[2017-06-18 09:09] LABS: HEMO FLAGS AUTO DIFF
[2017-06-18 09:13] LABS: BANDS 21 % (0-6); METAMYELOCYTES 2 % (0-1); NEUTROPHIL # MANUAL DIFF 20.9 TH/MM3 (1.8-7.7); PLATELET ESTIMATE SMEAR LOW (NORMAL); PLATELET MORPHOLOGY ENLARGED (NORMAL); POLYS (SEG NEUTROPHILS) 56 % (16-70); SCAN/DIFF FINAL DIFF MANUAL; TOXIC GRANULATION 1+ (NORMAL); WBC DIFF SAMPLE 100
[2017-06-18] MEDS: METOPROLOL TARTRATE 25 MG TAB PO SCH (10:15)
--- NOTE | 2017-06-18 10:54 | HHI.PR ---
Subjective Remarks with diarrhea 5 x pleasantly confused , family at bedside all questions answered to the best of my ability not eating much . no fever or chills he is sleepy Objective Vitals Vital Signs Date Time Temp Pulse Resp B/P (MAP) Pulse Ox O2 Delivery O2 Flow Rate FiO2 06/18/17 06:26 96 06/18/17 04:00 94 06/18/17 03:07 97.4 95 18 119/55 (76) 100 06/18/17 03:00 92 06/18/17 02:00 88 06/18/17 01:00 80 06/18/17 00:00 92 06/17/17 23:00 89 06/17/17 23:00 98.4 86 18 117/51 (73) 100 06/17/17 22:00 86 06/17/17 21:00 82 06/17/17 20:52 99 Nasal Cannula 2.00 06/17/17 20:00 78 06/17/17 19:33 98.5 89 18 123/68 (86) 100 06/17/17 19:00 75 06/17/17 17:39 77 06/17/17 16:24 97.8 97 14 149/74 (99) 9 06/17/17 16:00 58 06/17/17 15:00 75 06/17/17 14:00 68 06/17/17 13:00 54 06/17/17 12:00 68 06/17/17 11:55 97.4 109 14 118/60 (79) 93 06/17/17 11:00 97 I/O 06/17/17 06/17/17 06/17/17 06/18/17 06/18/17 06/18/17 07:00 15:00 23:00 07:00 15:00 23:00 Intake Total 1111 ml 1520 ml 240 ml Output Total 300 ml 150 ml Balance 1111 ml 1220 ml 90 ml Intake Oral 720 ml 240 ml IV Total 1111 ml 800 ml Output Urine Total 300 ml 150 ml # Voids 2 2 # Bowel Movements 3 5 Result Diagram: 06/18/17 0633 06/18/17 0703 Imaging Last Impressions Renal Ultrasound 06/16/17 0000 Signed Impressions: Service Date/Time: Friday, June 16, 2017 20:41 - CONCLUSION: No acute disease. Suhas Terrazas MD Objective Remarks GENERAL: This is a pleasantly confused 86 yo male, well-nourished, well- developed patient, in no apparent distress. SKIN: No rashes, ecchymoses or lesions. Cool and dry. HEAD: Atraumatic. Normocephalic. No temporal or scalp tenderness. EYES: Pupils equal round and reactive. Extraocular motions intact. No scleral icterus. No injection or drainage. ENT: Nose without bleeding, purulent drainage or septal hematoma. Throat without erythema, tonsillar hypertrophy or exudate. Uvula midline. Airway patent. NECK: Trachea midline. No JVD or lymphadenopathy. Supple, nontender, no meningeal signs. CARDIOVASCULAR: Regular rate and rhythm without murmurs, gallops, or rubs. RESPIRATORY: Clear to auscultation. Breath sounds equal bilaterally. No wheezes , rales, or rhonchi. GASTROINTESTINAL: Abdomen soft, diffuse tenderness, nondistended. No guarding. MUSCULOSKELETAL: Extremities without clubbing, cyanosis, or edema. No joint tenderness, effusion, or edema noted. No calf tenderness. Negative Homans sign bilaterally. NEUROLOGICAL: Awake and alert. Cranial nerves II through XII intact. Motor and sensory grossly within normal limits. Normal speech. A/P Assessment and Plan Renal failure. Kidney function is improving monitor closely Vit D deficiency . Start vit D supplement Appears ZOLTAN related to volume depletion in setting of dehydration from diarrhea. Recent increase in ACEI likely also contributing. Agree with IVF Check renal US Hold ACEI Consult nephrology, appreciate recommendations Medications should be adjusted for the patient's renal dysfunction. Avoid nephrotoxic agents such as iodinated contrast dyes and NSAIDs. Avoid gadolinium. Sepsis with C. difficile colitis with tachycardia, leukocytosis, LA on admission. Monitor CBC, LA. LA back to normal. WBC trending down. Hypernatremia imprpving, continue 1/2 NS , monitor Na level. Encourage Free water he was treated with PO vanco and finished course of antibiotic. Continue vancomycin PO ID on consult as patient with failed treatment as OP, persistent cdiff colitis - sepsis Repeat stool positive for Cdiff Blood cultures NTD and urine cultures are neg Failure to thrive in adult- swallow evaluation . Consult security patrol driver, Check prealbumin Severe protein calorie malnutrition. Frail cachectic weak handgrip, low albumin at 2,, prealbumin of 9. Consult security patrol driver. Patient with cdiff colitis also Physical deconditioning Consult PT HTN (hypertension) Hold ACEI Continue on Amlodipine and Metoprolol Dementia Continue home meds DVT ppx SCD/TEDS Discussed Condition With Patient, nurse DC plan: Pending improvement, DC to SNF likely Vianey Verdugo MD Jun 18, 2017 10:54
[2017-06-18] MEDS: FREE WATER G-TUBE SCH ×4 (12:00→23:29)
[2017-06-18] MEDS: VANCOMYCIN 500 MG VIAL (FOR ORAL USE ONLY) PO SCH ×4 (13:30→23:17)
[2017-06-18] MEDS ORDERED: SODIUM CHLOR 0.45% 1000 ML INJ 1,000 ML IV ONE (15:00)
--- NOTE | 2017-06-18 15:39 | HHI.NPPN ---
Subjective History of Present Illness The patient is an 86 yo [place] male who was brought to this facility via [facility] 06/16 for progressive weakness. and daughter present at bedside. Reports recent admission in May for C diff colitis and was discharged on 05/21 to [facility] where he spent approximately 20 days with rehab. Has been home since and receiving PT. states that he fell last evening at home at approximately 2000 and laid on the floor until this AM as she could not lift him and thusly called [facility]. Despite finishing abx, he has been having continued diarrhea at home. also endorses poor appetite and significant weakness. Had recent increase in Lisinopril by his PCP as BP been elevated. Denies any NSAID use at home. Admitting SCr of 5.15. Discharge SCr on 05/21 visit of 0.94. No known hx of CKD. Interval History Patient is pleasantly confused. No verbal complaints. Review of Systems General General Remarks Unable to assess d/t patient's mentation Objective Data Data Vital Signs Date Time Temp Pulse Resp B/P (MAP) Pulse Ox O2 Delivery O2 Flow Rate FiO2 06/18/17 06:26 96 06/18/17 04:00 94 06/18/17 03:07 97.4 95 18 119/55 (76) 100 06/18/17 03:00 92 06/18/17 02:00 88 06/18/17 01:00 80 06/18/17 00:00 92 06/17/17 23:00 89 06/17/17 23:00 98.4 86 18 117/51 (73) 100 06/17/17 22:00 86 06/17/17 21:00 82 06/17/17 20:52 99 Nasal Cannula 2.00 06/17/17 20:00 78 06/17/17 19:33 98.5 89 18 123/68 (86) 100 06/17/17 19:00 75 06/17/17 17:39 77 06/17/17 16:24 97.8 97 14 149/74 (99) 9 06/17/17 16:00 58 -: 06/18/17 0633 06/18/17 0703 Medication Review Current Medications Sodium Chloride (NS Flush) 2 ml UNSCH PRN IVF FLUSH AFTER USING IV ACCESS; Start 06/16/17 at 14:00; Stop 06/16/17 at 16:30; Status DC Sodium Chloride 500 ml @ 500 mls/hr ONCE ONCE IV Last administered on 14:27; Start 06/16/17 at 14:00; Stop 06/16/17 at 14:59; Status DC Sodium Chloride 1,000 ml @ 999 mls/hr BOLUS ONCE IV Last administered on 06/16 15:52; Start 06/16/17 at 15:30; Stop 06/16/17 at 16:30; Status DC Metronidazole 100 ml @ 100 mls/hr ONCE ONCE IV Last administered on 16:00; Start 06/16/17 at 15:45; Stop 06/16/17 at 16:44; Status DC Sodium Chloride 1,000 ml @ 999 mls/hr BOLUS ONCE IV Last administered on 06/16 15:30; Start 06/16/17 at 15:45; Stop 06/16/17 at 16:45; Status DC Vancomycin HCl (VANCOMYCIN for oral use only) 250 mg QID PO Last administered on 06/17/17 20:39; Start 06/16/17 at 18:00 Amlodipine Besylate (Norvasc) 10 mg DAILY PO Last administered on 06/17/17 10: 38; Start 06/17/17 at 09:00 Donepezil HCl (Aricept) 10 mg HS PO Last administered on 06/17/17 20:39; Start 06/16/17 at 21:00 Lactobacillus Acidophilus (Lactinex) 1 tab TID PO Last administered on 18:00; Start 06/16/17 at 18:00 Lisinopril (Prinivil) 10 mg DAILY PO ; Start 06/17/17 at 09:00; Stop 06/17/17 at 09:00; Status DC Metoprolol Tartrate (Lopressor) 25 mg DAILY PO Last administered on 06/18/17 10:15; Start 06/17/17 at 09:00 Sodium Chloride 1,000 ml @ 100 mls/hr Q10H IV Last administered on 06/16/17 17:45; Start 06/16/17 at 16:00; Stop 06/17/17 at 07:44; Status DC Sodium Chloride (NS Flush) 2 ml UNSCH PRN IV FLUSH FLUSH AFTER USING IV ACCESS ; Start 06/16/17 at 16:00 Sodium Chloride (NS Flush) 2 ml BID IV FLUSH ; Start 06/16/17 at 21:00 Ondansetron HCl (Zofran Inj) 4 mg Q6H PRN IVP NAUSEA OR VOMITING; Start at 16:00 Temazepam (Restoril) 15 mg HS PRN PO INSOMNIA; Start 06/16/17 at 16:00 Enoxaparin Sodium (Lovenox Inj) 30 mg Q24H SQ Last administered on 06/17/17 16 :19; Start 06/16/17 at 17:00 Naloxone HCl (Narcan Inj) 0.4 mg UNSCH PRN IV PUSH SEE LABEL COMMENTS; Start 06/16/17 at 16:00 Senna/Docusate Sodium (Brii-Colace) 1 tab BID PO ; Start 06/16/17 at 21:00 Magnesium Hydroxide (Milk Of Magnesia Liq) 30 ml Q12H PRN PO Mild constipation ; Start 06/16/17 at 16:00 Sennosides (Senokot) 17.2 mg Q12H PRN PO Moderate constipation; Start 06/16/17 at 16:00 Bisacodyl (Dulcolax Supp) 10 mg DAILY PRN RECTAL SEVERE CONSITIPATION; Start 06/16/17 at 16:00 Lactulose (Lactulose Liq) 30 ml DAILY PRN PO SEVERE CONSITIPATION; Start at 16:00 Pneumococcal Polyvalent Vaccine (Pneumovax-23 Inj) 25 mcg ONCE ONCE IM Last administered on 06/17/17 10:45; Start 06/17/17 at 09:00; Stop 06/17/17 at 09:01 ; Status DC Sodium Chloride 1,000 ml @ 84 mls/hr [id number] IV Last administered on 19:40; Start 06/17/17 at 07:45 Water (Free Water) 200 ml Q6HR G-TUBE ; Start 06/17/17 at 08:00 Cholecalciferol (Vitamin D3) 2,000 units DAILY PO ; Start 06/18/17 at 09:00 Sodium Chloride 1,000 ml @ 999 mls/hr BOLUS ONCE IV ; Start 06/18/17 at 15:00 ; Stop 06/18/17 at 16:00 Physical Exam General Appearance: No Acute Distress, Comfortable Throat Throat Exam: Oral Mucosa [place] & Moist Neck Neck Exam: Trachea Midline Pulmonary Resp Exam: Clear Bilaterally, Breath Sounds Equal Cardiology CV Exam: Regular Gastrointestinal/Abdomen GI Exam: Soft Integumentary Skin Exam: Clear, Warm Extremeties Extremities Exam: No Edema Neurologic Neuro Exam: Awake Assessment/Plan Problem List: (1) Renal failure ICD Codes: N19 - Unspecified kidney failure Status: Acute Plan: Appears ZOLTAN related to volume depletion in setting of dehydration from diarrhea. Recent increase in ACEi likely also contributing. Patient's renal indices continue to improve. Continue IV hydration as ordered. Patient will be seen intermittently at this point in time as primary etiology appears to be dehydration which is improved. Medications should be adjusted for the patient's renal dysfunction. Avoid nephrotoxic agents such as iodinated contrast dyes and NSAIDs. Avoid gadolinium. (2) C. difficile colitis ICD Codes: A04.72 - Enterocolitis due to Clostridium difficile, not specified as recurrent Plan: Mgmt as per ID (3) Failure to thrive in adult ICD Codes: R62.7 - Adult failure to thrive Status: Acute (4) HTN (hypertension) ICD Codes: I10 - Essential (primary) hypertension Plan: Hold ACEi. Continue on Amlodipine and Metoprolol (5) Dementia ICD Codes: F03.90 - Unspecified dementia without behavioral disturbance (6) Vitamin D deficiency ICD Codes: E55.9 - Vitamin D deficiency, unspecified Status: Chronic Plan: Being addressed by primary care physician. Radha Cuevas MD Jun 18, 2017 15:39
--- NOTE | 2017-06-18 18:05 | HHI.IDPN ---
Note Infectious Disease Note Patient is confused. No distress. D/W RN. Four loose stools today. Consulted for c. dif. PAST MEDICAL HISTORY 1. Hypertension 2. Kidney stones 3. Appendectomy 4. Tonsillectomy 5. Dementia 6. Recent C-difficile colitis. ALLERGIES NO KNOWN DRUG ALLERGIES. ANTIBIOTICS: Vancomycin p.o. OBJ: Vital Signs Date Time Temp Pulse Resp B/P (MAP) Pulse Ox O2 Delivery O2 Flow Rate FiO2 06/18/17 06:26 96 06/18/17 04:00 94 06/18/17 03:07 97.4 95 18 119/55 (76) 100 06/18/17 03:00 92 06/18/17 02:00 88 06/18/17 01:00 80 06/18/17 00:00 92 06/17/17 23:00 89 06/17/17 23:00 98.4 86 18 117/51 (73) 100 06/17/17 22:00 86 06/17/17 21:00 82 06/17/17 20:52 99 Nasal Cannula 2.00 06/17/17 20:00 78 06/17/17 19:33 98.5 89 18 123/68 (86) 100 06/17/17 19:00 75 Laboratory Tests Test 06/17/17 05:07 06/18/17 06:33 White Blood Count 25.6 TH/MM3 26.4 TH/MM3 Red Blood Count 4.35 MIL/MM3 4.35 MIL/MM3 Hemoglobin 13.7 GM/DL 13.4 GM/DL Hematocrit 41.5 % 41.1 % Mean Corpuscular Volume 95.2 FL 94.6 FL Mean Corpuscular Hemoglobin 31.4 PG 30.9 PG Mean Corpuscular Hemoglobin Concent 33.0 % 32.6 % Red Cell Distribution Width 14.4 % 14.4 % Platelet Count 122 TH/MM3 87 TH/MM3 Mean Platelet Volume 9.1 FL 9.5 FL Neutrophils (%) (Auto) 87.7 % 80.1 % Lymphocytes (%) (Auto) 6.0 % 9.5 % Monocytes (%) (Auto) 6.1 % 10.1 % Eosinophils (%) (Auto) 0.1 % 0.1 % Basophils (%) (Auto) 0.1 % 0.2 % Neutrophils # (Auto) 22.4 TH/MM3 21.2 TH/MM3 Lymphocytes # (Auto) 1.5 TH/MM3 2.5 TH/MM3 Monocytes # (Auto) 1.6 TH/MM3 2.7 TH/MM3 Eosinophils # (Auto) 0.0 TH/MM3 0.0 TH/MM3 Basophils # (Auto) 0.0 TH/MM3 0.1 TH/MM3 CBC Comment DIFF FINAL AUTO DIFF Differential Comment FINAL DIFF MANUAL Differential Total Cells Counted 100 Neutrophils % (Manual) 56 % Band Neutrophils % 21 % Lymphocytes % 9 % Monocytes % 12 % Neutrophils # (Manual) 20.9 TH/MM3 Metamyelocytes 2 % Toxic Granulation 1+ Platelet Estimate LOW Platelet Morphology Comment ENLARGED Red Cell Morphology Comment NORMAL Hematology Comments Laboratory Tests Test 06/16/17 18:25 06/16/17 22:57 06/17/17 05:07 06/18/17 07:03 Lactic Acid Level 3.0 mmol/L 1.7 mmol/L Blood Urea Nitrogen 78 MG/DL 85 MG/DL Creatinine 3.90 MG/DL 3.41 MG/DL Random Glucose 81 MG/DL 80 MG/DL Albumin 2.0 GM/DL Calcium Level 9.6 MG/DL 9.0 MG/DL Phosphorus Level 4.7 MG/DL Sodium Level 150 MEQ/L 146 MEQ/L Potassium Level 3.8 MEQ/L 3.7 MEQ/L Chloride Level 115 MEQ/L 113 MEQ/L Carbon Dioxide Level 23.0 MEQ/L 20.1 MEQ/L Anion Gap 12 MEQ/L 13 MEQ/L Estimat Glomerular Filtration Rate 15 ML/MIN 17 ML/MIN Prealbumin 9 MG/DL 25-Hydroxy Vitamin D Total 18.0 ng/ML Parathyroid Hormone (Intact) 231.7 PG/ML Microbiology Date/Time Source Procedure Growth Status 06/16/17 15:25 Blood Peripheral Aerobic Blood Culture - Preliminary NO GROWTH IN 2 DAYS Resulted 06/16/17 15:25 Blood Peripheral Anaerobic Blood Culture - Preliminary NO GROWTH IN 2 DAYS Resulted 06/16/17 15:20 Blood Peripheral Aerobic Blood Culture - Preliminary NO GROWTH IN 2 DAYS Resulted 06/16/17 15:20 Blood Peripheral Anaerobic Blood Culture - Preliminary NO GROWTH IN 2 DAYS Resulted 06/16/17 14:57 Urine Catheterized Urine Urine Culture - Final NO GROWTH IN 48 HOURS. Complete PHYSICAL EXAMINATION GENERAL: No acute distress. Confused. HEENT: Head is atraumatic. Extraocular movements grossly intact. No icterus. Oropharynx, the mucosa is moist. NECK: Supple without adenopathy. LUNGS: Clear breath sounds. HEART: Regular S1 and S2 without audible murmurs. ABDOMEN: Bowel sounds diminished. EXTREMITIES: No clubbing or cyanosis or edema. SKIN: No rash. NEUROLOGIC: No gross focal findings. PSYCH: Unable to fully assess. IMPRESSION 1. C-difficile colitis. This is the second episode in this patient who was recently treated. 2. Leukocytosis secondary to C-difficile. 3. Weakness very likely associated with dehydration. 4. Acute renal failure RECOMMENDATIONS 1. Continue p.o. vancomycin. 2. Monitor stool output and white blood cell count. 3. Because of the recurrence of the C diff, the patient should be treated with a taper of vancomycin over six weeks period. This can be given as a taper over the six weeks. Please call [facility] seasonal greenery bundler if further input needed. Jj Devries MD Jun 18, 2017 18:05
[2017-06-18] MEDS: ENOXAPARIN SODIUM 30 MG/0.3 ML SYRINGE SQ SCH (18:30)
[2017-06-18] MEDS: SODIUM CHLOR 0.45% 1000 ML INJ 1,000 ML IV SCH (23:16)
[2017-06-18] MEDS: DONEPEZIL HCL 5 MG TAB PO SCH (23:16)
[2017-06-19] VITALS (26 sets, daily range): BP systolic 104–122; BP diastolic 50–74; PULSE 59–89; RESP 16–18; TEMP 97.8–98.3; O2SAT 96–100
[2017-06-19] MEDS: SODIUM CHLOR 0.45% 1000 ML INJ 1,000 ML IV SCH ×2 (07:25→14:40)
[2017-06-19 07:50] LABS: BASOPHIL % 0.1 % (0.0-2.0); EOSINOPHIL # 0.1 TH/MM3 (0-0.4); EOSINOPHIL % 0.3 % (0.0-4.0); HEMATOCRIT 37.8 % (39.0-51.0); LYMPHOCYTE # 2.1 TH/MM3 (1.0-4.8); MEAN CORPUSCULAR HEMOGLOBIN 31.2 PG (27.0-34.0); MEAN CORPUSCULAR HGB CONC 33.2 % (32.0-36.0); MONO % 9.3 % (0.0-8.0); NEUT % 80.3 % (16.0-70.0); PLATELET COUNT 95 TH/MM3 (150-450); RED BLOOD COUNT 4.03 MIL/MM3 (4.50-5.90); RED CELL DISTRIBUTION WIDTH 14.4 % (11.6-17.2); WHITE BLOOD COUNT 21.2 TH/MM3 (4.0-11.0)
[2017-06-19 07:51] LABS: HEMO FLAGS AUTO DIFF
[2017-06-19 08:15] LABS: BICARBONATE 22.4 MEQ/L (21.0-32.0); POTASSIUM 3.4 MEQ/L (3.5-5.1)
[2017-06-19 08:39] LABS: BANDS 21 % (0-6); MYELOCYTES 1 % (0-0); NEUTROPHIL # MANUAL DIFF 18.4 TH/MM3 (1.8-7.7); POLYS (SEG NEUTROPHILS) 65 % (16-70); WBC DIFF SAMPLE 100
[2017-06-19 08:40] LABS: ACANTHOCYTES 1+ (NORMAL); PLATELET ESTIMATE SMEAR LOW (NORMAL); PLATELET MORPHOLOGY NORMAL (NORMAL); SCAN/DIFF FINAL DIFF MANUAL; TOXIC GRANULATION 1+ (NORMAL)
[2017-06-19] MEDS: DOCUSATE SODIUM 50 MG/SENNA 8.6 MG TAB PO SCH ×2 (09:00→21:00)
[2017-06-19] MEDS ORDERED: CHOL1000 PO (09:19)
--- NOTE | 2017-06-19 09:20 | HHI.DS ---
Discharge Summary Admission Date Jun 16, 2017 at 16:00 Discharge Date: Jun 22, 2017 Admitting Diagnosis Sepsis, Acute Renal Failure Brief History - From Admission Patient is a 86-year-old male with history of dementia, hypertension who presents to emergency room from home for evaluation of generalized weakness. As per EMS, patient's family called as patient was unable to get up from the floor after he had physical therapy today. Family reports that patient has been weak, reports that he had one episode of diarrhea and is concerned for possible C. difficile. Reports the patient was recently admitted to the hospital and treated for C. difficile, he was ultimately discharged May to a rehabilitation facility ([facility]) on Vancomycin PO for treatment of C. difficile. Reports the patient was admitted to [facility] for 10 days, reports that after discharged to home, home rehab has been coming to their home. Reports that he did have rehab today and patient was too weak to get up from the floor after his therapy. Patient at this time is only alert to person, patient with no complaints at this time. He is pleasantly demented, no family at bedside. Patient is a poor historian and history obtained form medical records and patient. Has no other complaints except abdominal pain with palpation. He has diarrhea however he is not able to answer how many times a day he had loose stool. No fever or chills. No cp, sob. CBC/BMP: 06/19/17 0709 06/19/17 0709 Significant Findings Laboratory Tests Test 06/16/17 14:20 06/16/17 14:57 06/16/17 15:00 06/16/17 15:25 White Blood Count 30.0 TH/MM3 (4.0-11.0) Neutrophils (%) (Auto) 86.2 % (16.0-70.0) Lymphocytes (%) (Auto) 6.0 % (9.0-44.0) Neutrophils # (Auto) 25.8 TH/MM3 (1.8-7.7) Monocytes # (Auto) 2.2 TH/MM3 (0-0.9) Neutrophils % (Manual) 77 % (16-70) Band Neutrophils % 14 % (0-6) Lymphocytes % 3 % (9-44) Neutrophils # (Manual) 27.3 TH/MM3 (1.8-7.7) Toxic Vacuolation PRESENT (NONE SEEN) Activated Partial Thromboplast Time 20.4 SEC (24.3-30.1) Blood Urea Nitrogen 75 MG/DL (7-18) Creatinine 5.15 MG/DL (0.60-1.30) Total Protein 6.1 GM/DL (6.4-8.2) Albumin 2.3 GM/DL (3.4-5.0) Calcium Level 10.7 MG/DL (8.5-10.1) Alkaline Phosphatase 131 U/L (45-117) Aspartate Amino Transf (AST/SGOT) 61 U/L (15-37) Chloride Level 108 MEQ/L (98-107) Estimat Glomerular Filtration Rate 11 ML/MIN (>89) Total Creatine Kinase 1016 U/L (39-308) Creatine Kinase MB 6.5 NG/ML (0.5-3.6) Urine Turbidity HAZY (CLEAR) Urine Protein 30 mg/dL (NEG-TRACE) Urine Occult Blood SMALL (NEG) Urine Bacteria RARE /hpf (NONE) Urine Mucus FEW /lpf (OCC) Stool C. difficile Toxin (PCR) POSITIVE (NEGATIVE) Lactic Acid Level 2.2 mmol/L (0.4-2.0) Test 06/16/17 16:45 06/16/17 18:25 06/16/17 22:57 06/17/17 05:07 Lactic Acid Level 2.4 mmol/L (0.4-2.0) 3.0 mmol/L (0.4-2.0) White Blood Count 25.6 TH/MM3 (4.0-11.0) Red Blood Count 4.35 MIL/MM3 (4.50-5.90) Platelet Count 122 TH/MM3 (150-450) Neutrophils (%) (Auto) 87.7 % (16.0-70.0) Lymphocytes (%) (Auto) 6.0 % (9.0-44.0) Neutrophils # (Auto) 22.4 TH/MM3 (1.8-7.7) Monocytes # (Auto) 1.6 TH/MM3 (0-0.9) Blood Urea Nitrogen 78 MG/DL (7-18) Creatinine 3.90 MG/DL (0.60-1.30) Albumin 2.0 GM/DL (3.4-5.0) Sodium Level 150 MEQ/L (136-145) Chloride Level 115 MEQ/L (98-107) Estimat Glomerular Filtration Rate 15 ML/MIN (>89) Prealbumin 9 MG/DL (20-40) 25-Hydroxy Vitamin D Total 18.0 ng/ML (30-100) Parathyroid Hormone (Intact) 231.7 PG/ML (12.4-76.8) Test 06/17/17 12:29 06/18/17 06:33 06/18/17 07:03 06/19/17 07:09 White Blood Count 26.4 TH/MM3 (4.0-11.0) 21.2 TH/MM3 (4.0-11.0) Red Blood Count 4.35 MIL/MM3 (4.50-5.90) 4.03 MIL/MM3 (4.50-5.90) Platelet Count 87 TH/MM3 (150-450) 95 TH/MM3 (150-450) Neutrophils (%) (Auto) 80.1 % (16.0-70.0) 80.3 % (16.0-70.0) Monocytes (%) (Auto) 10.1 % (0.0-8.0) 9.3 % (0.0-8.0) Neutrophils # (Auto) 21.2 TH/MM3 (1.8-7.7) 17.0 TH/MM3 (1.8-7.7) Monocytes # (Auto) 2.7 TH/MM3 (0-0.9) 2.0 TH/MM3 (0-0.9) Band Neutrophils % 21 % (0-6) 21 % (0-6) Monocytes % 12 % (0-8) Neutrophils # (Manual) 20.9 TH/MM3 (1.8-7.7) 18.4 TH/MM3 (1.8-7.7) Metamyelocytes 2 % (0-1) Toxic Granulation 1+ (NORMAL) 1+ (NORMAL) Platelet Estimate LOW (NORMAL) LOW (NORMAL) Platelet Morphology Comment ENLARGED (NORMAL) Blood Urea Nitrogen 85 MG/DL (7-18) 79 MG/DL (7-18) Creatinine 3.41 MG/DL (0.60-1.30) 2.80 MG/DL (0.60-1.30) Sodium Level 146 MEQ/L (136-145) Chloride Level 113 MEQ/L (98-107) 113 MEQ/L (98-107) Carbon Dioxide Level 20.1 MEQ/L (21.0-32.0) Estimat Glomerular Filtration Rate 17 ML/MIN (>89) 22 ML/MIN (>89) Hemoglobin 12.6 GM/DL (13.0-17.0) Hematocrit 37.8 % (39.0-51.0) Lymphocytes % 6 % (9-44) Myelocytes 1 % (0-0) Acanthocytes 1+ (NORMAL) Potassium Level 3.4 MEQ/L (3.5-5.1) PE at Discharge GENERAL: This is a pleasantly confused 86 yo male, well-nourished, well- developed patient, in no apparent distress. SKIN: No rashes, ecchymoses or lesions. Cool and dry. HEAD: Atraumatic. Normocephalic. No temporal or scalp tenderness. EYES: Pupils equal round and reactive. Extraocular motions intact. No scleral icterus. No injection or drainage. ENT: Nose without bleeding, purulent drainage or septal hematoma. Throat without erythema, tonsillar hypertrophy or exudate. Uvula midline. Airway patent. NECK: Trachea midline. No JVD or lymphadenopathy. Supple, nontender, no meningeal signs. CARDIOVASCULAR: Regular rate and rhythm without murmurs, gallops, or rubs. RESPIRATORY: Clear to auscultation. Breath sounds equal bilaterally. No wheezes , rales, or rhonchi. GASTROINTESTINAL: Abdomen soft, diffuse tenderness, nondistended. No guarding. MUSCULOSKELETAL: Extremities without clubbing, cyanosis, or edema. No joint tenderness, effusion, or edema noted. No calf tenderness. Negative Homans sign bilaterally. NEUROLOGICAL: Awake and alert. Cranial nerves II through XII intact. Motor and sensory grossly within normal limits. Normal speech. Discharge Instructions Speech Therapy-Diet Recommends: Mechanical Soft CosmVianey hurd MD Jun 19, 2017 09:20
[2017-06-19] MEDS ORDERED: POTASSIUM BICARBONATE 25 MEQ EFFERVESCENT TAB PO ONE (09:30)
[2017-06-19] MEDS: METOPROLOL TARTRATE 25 MG TAB PO SCH (10:37)
[2017-06-19] MEDS: LACTOBACILLUS ACIDOPHILUS TAB PO SCH ×3 (10:38→18:00)
[2017-06-19] MEDS: CHOLECALCIFEROL (VIT D3) 1000 UNIT TAB PO SCH (10:38)
[2017-06-19] MEDS: VANCOMYCIN 500 MG VIAL (FOR ORAL USE ONLY) PO SCH ×4 (10:38→21:47)
[2017-06-19] MEDS: SODIUM CHLORIDE 0.9% FLUSH 10 ML FLUSH IV FLUSH SCH ×2 (10:38→21:00)
--- NOTE | 2017-06-19 10:58 | HHI.PR ---
Subjective Remarks He is more alert and awake. He is up in the chair trying to eat breakfast. Appetite is better. No nausea or vomiting. Still with diarrhea. No fever or chills denies abdominal pain. He is pleasantly confused. Objective Vitals Vital Signs Date Time Temp Pulse Resp B/P (MAP) Pulse Ox O2 Delivery O2 Flow Rate FiO2 06/19/17 10:00 82 06/19/17 09:00 76 06/19/17 08:00 75 06/19/17 07:00 77 06/19/17 07:00 98.3 72 18 121/65 (83) 100 06/19/17 06:00 70 06/19/17 05:00 70 06/19/17 04:30 68 16 117/55 (75) 100 06/19/17 04:00 64 06/19/17 03:00 59 06/19/17 02:00 72 06/19/17 01:00 70 06/19/17 00:00 72 06/18/17 23:00 75 18 125/51 (75) 99 06/18/17 23:00 68 06/18/17 22:00 68 06/18/17 21:00 68 06/18/17 20:00 72 06/18/17 19:00 96.1 65 18 121/58 (79) 100 06/18/17 19:00 62 06/18/17 18:00 64 06/18/17 17:00 62 06/18/17 16:00 64 06/18/17 15:30 69 06/18/17 15:30 97.8 61 20 111/57 (75) 98 06/18/17 15:00 60 06/18/17 14:00 64 06/18/17 13:00 86 06/18/17 12:00 102 06/18/17 11:30 104 06/18/17 11:30 97.9 104 20 105/60 (75) 98 06/18/17 11:00 114 I/O 06/18/17 06/18/17 06/18/17 06/19/17 06/19/17 06/19/17 07:00 15:00 23:00 07:00 15:00 23:00 Intake Total 240 ml 1475 ml 100 ml Output Total 150 ml 350 ml 300 ml Balance 90 ml 1125 ml -200 ml Intake Oral 240 ml 780 ml 100 ml IV Total 695 ml Output Urine Total 150 ml 350 ml 300 ml # Bowel Movements 5 3 Result Diagram: 06/19/17 0709 06/19/17 0709 Imaging Last Impressions Renal Ultrasound 06/16/17 0000 Signed Impressions: Service Date/Time: Friday, June 16, 2017 20:41 - CONCLUSION: No acute disease. Suhas Terrazas MD Objective Remarks GENERAL: This is a pleasantly confused 86 yo male, well-nourished, well- developed patient, in no apparent distress. SKIN: No rashes, ecchymoses or lesions. Cool and dry. HEAD: Atraumatic. Normocephalic. No temporal or scalp tenderness. EYES: Pupils equal round and reactive. Extraocular motions intact. No scleral icterus. No injection or drainage. ENT: Nose without bleeding, purulent drainage or septal hematoma. Throat without erythema, tonsillar hypertrophy or exudate. Uvula midline. Airway patent. NECK: Trachea midline. No JVD or lymphadenopathy. Supple, nontender, no meningeal signs. CARDIOVASCULAR: Regular rate and rhythm without murmurs, gallops, or rubs. RESPIRATORY: Clear to auscultation. Breath sounds equal bilaterally. No wheezes , rales, or rhonchi. GASTROINTESTINAL: Abdomen soft, diffuse tenderness, nondistended. No guarding. MUSCULOSKELETAL: Extremities without clubbing, cyanosis, or edema. No joint tenderness, effusion, or edema noted. No calf tenderness. Negative Homans sign bilaterally. NEUROLOGICAL: Awake and alert. Cranial nerves II through XII intact. Motor and sensory grossly within normal limits. Normal speech. A/P Assessment and Plan Renal failure. Kidney function is improving monitor closely Vit D deficiency . Start vit D supplement Appears ZOLTAN related to volume depletion in setting of dehydration from diarrhea. Recent increase in ACEI likely also contributing. Agree with IVF Check renal US Hold ACEI Consult nephrology, appreciate recommendations Medications should be adjusted for the patient's renal dysfunction. Avoid nephrotoxic agents such as iodinated contrast dyes and NSAIDs. Avoid gadolinium. Sepsis with C. difficile colitis with tachycardia, leukocytosis, LA on admission. Monitor CBC, LA. LA back to normal. WBC trending down. Hypernatremia imprpving, continue 1/2 NS , monitor Na level. Encourage Free water he was treated with PO vanco and finished course of antibiotic. Continue vancomycin PO ID on consult as patient with failed treatment as OP, persistent cdiff colitis - sepsis Repeat stool positive for Cdiff Blood cultures NTD and urine cultures are neg Failure to thrive in adult- swallow evaluation . Consult area operations manager, Check prealbumin Severe protein calorie malnutrition. Frail cachectic weak handgrip, low albumin at 2,, prealbumin of 9. Consult area operations manager. Patient with cdiff colitis also Physical deconditioning Consult PT HTN (hypertension) Hold ACEI Continue on Amlodipine and Metoprolol Dementia Continue home meds DVT ppx SCD/TEDS Discussed Condition With Patient, nurse DC plan: Pending improvement, DC to SNF likely. Patient stated with leukocytosis, improving slowly still with diarrhea. Plan to discharge to [facility] when he improves, no diarrhea, any function back to baseline. Vancomycin taper by mouth for 6 weeks at discharge per infectious disease recommendations. Vianey Verdugo MD Jun 19, 2017 10:58
[2017-06-19] MEDS: FREE WATER G-TUBE SCH ×3 (12:00→21:47)
[2017-06-19] MEDS: ENOXAPARIN SODIUM 30 MG/0.3 ML SYRINGE SQ SCH (18:25)
[2017-06-19] MEDS: DONEPEZIL HCL 5 MG TAB PO SCH (21:47)
[2017-06-20] VITALS (25 sets, daily range): BP systolic 121–138; BP diastolic 54–76; PULSE 48–84; RESP 14–18; TEMP 97.7–98.6; O2SAT 93–98
[2017-06-20] MEDS: SODIUM CHLOR 0.45% 1000 ML INJ 1,000 ML IV SCH ×2 (05:00→17:19)
[2017-06-20] MEDS: FREE WATER G-TUBE SCH ×3 (05:00→17:17)
[2017-06-20] MEDS: CHOLECALCIFEROL (VIT D3) 1000 UNIT TAB PO SCH (08:55)
[2017-06-20] MEDS: VANCOMYCIN 500 MG VIAL (FOR ORAL USE ONLY) PO SCH ×4 (08:55→20:11)
[2017-06-20] MEDS: LACTOBACILLUS ACIDOPHILUS TAB PO SCH ×3 (08:55→17:16)
[2017-06-20] MEDS: SODIUM CHLORIDE 0.9% FLUSH 10 ML FLUSH IV FLUSH SCH ×2 (08:55→20:11)
[2017-06-20] MEDS: METOPROLOL TARTRATE 25 MG TAB PO SCH (08:55)
[2017-06-20] MEDS: DOCUSATE SODIUM 50 MG/SENNA 8.6 MG TAB PO SCH ×2 (08:56→20:11)
--- NOTE | 2017-06-20 10:00 | HHI.PR ---
Subjective Remarks With persistent diarrhea had 8 BM . No fever or chills. Clinically however appears better. Pleasantly confused. No chest pain or sob. Abd pain improving. Objective Vitals Vital Signs Date Time Temp Pulse Resp B/P (MAP) Pulse Ox O2 Delivery O2 Flow Rate FiO2 06/20/17 09:00 71 06/20/17 08:00 73 06/20/17 07:00 71 06/20/17 07:00 98.2 82 14 129/65 (86) 96 06/20/17 06:18 67 06/20/17 05:08 55 06/20/17 04:01 58 06/20/17 03:00 98.2 71 121/54 (76) 95 06/20/17 03:00 63 06/20/17 02:00 64 06/20/17 01:00 62 06/20/17 00:00 68 06/20/17 00:00 97.7 77 138/68 (91) 93 06/19/17 23:00 65 06/19/17 22:00 64 06/19/17 21:00 68 06/19/17 20:00 66 06/19/17 20:00 97.8 67 104/50 (68) 97 06/19/17 19:00 68 06/19/17 18:10 88 06/19/17 17:59 96 Nasal Cannula 2.00 06/19/17 17:00 64 06/19/17 16:00 76 06/19/17 15:00 97.9 74 16 122/74 (90) 96 06/19/17 15:00 74 06/19/17 14:00 89 06/19/17 13:32 99 Nasal Cannula 2.00 06/19/17 12:00 89 06/19/17 11:00 72 06/19/17 11:00 98.3 74 18 121/65 (83) 100 06/19/17 10:00 82 I/O 06/19/17 06/19/17 06/19/17 06/20/17 06/20/17 06/20/17 07:00 15:00 23:00 07:00 15:00 23:00 Intake Total 100 ml 200 ml 1240 ml Output Total 300 ml 550 ml 450 ml Balance -200 ml -350 ml 790 ml Intake Oral 100 ml 200 ml 240 ml IV Total 1000 ml Output Urine Total 300 ml 550 ml 450 ml # Bowel Movements 3 Result Diagram: 06/19/17 0709 06/19/17 0709 Imaging Last Impressions Renal Ultrasound 06/16/17 0000 Signed Impressions: Service Date/Time: Friday, June 16, 2017 20:41 - CONCLUSION: No acute disease. Suhas Terrazas MD Objective Remarks GENERAL: This is a pleasantly confused 86 yo male, well-nourished, well- developed patient, in no apparent distress. SKIN: No rashes, ecchymoses or lesions. Cool and dry. HEAD: Atraumatic. Normocephalic. No temporal or scalp tenderness. EYES: Pupils equal round and reactive. Extraocular motions intact. No scleral icterus. No injection or drainage. ENT: Nose without bleeding, purulent drainage or septal hematoma. Throat without erythema, tonsillar hypertrophy or exudate. Uvula midline. Airway patent. NECK: Trachea midline. No JVD or lymphadenopathy. Supple, nontender, no meningeal signs. CARDIOVASCULAR: Regular rate and rhythm without murmurs, gallops, or rubs. RESPIRATORY: Clear to auscultation. Breath sounds equal bilaterally. No wheezes , rales, or rhonchi. GASTROINTESTINAL: Abdomen soft, diffuse tenderness, nondistended. No guarding. MUSCULOSKELETAL: Extremities without clubbing, cyanosis, or edema. No joint tenderness, effusion, or edema noted. No calf tenderness. Negative Homans sign bilaterally. NEUROLOGICAL: Awake and alert. Cranial nerves II through XII intact. Motor and sensory grossly within normal limits. Normal speech. A/P Assessment and Plan Renal failure. Kidney function is improving monitor closely Vit D deficiency . Start vit D supplement Appears ZOLTAN related to volume depletion in setting of dehydration from diarrhea. Recent increase in ACEI likely also contributing. Agree with IVF Check renal US Hold ACEI Consult nephrology, appreciate recommendations Medications should be adjusted for the patient's renal dysfunction. Avoid nephrotoxic agents such as iodinated contrast dyes and NSAIDs. Avoid gadolinium. Sepsis with C. difficile colitis with tachycardia, leukocytosis, LA on admission. Monitor CBC, LA. LA back to normal. WBC trending down. Hypernatremia imprpving, continue 1/2 NS , monitor Na level. Encourage Free water he was treated with PO vanco and finished course of antibiotic. Continue vancomycin PO ID on consult as patient with failed treatment as OP, persistent cdiff colitis - sepsis Repeat stool positive for Cdiff Blood cultures NTD and urine cultures are neg Failure to thrive in adult- swallow evaluation . Consult gift shop assistant, Check prealbumin Severe protein calorie malnutrition. Frail cachectic weak handgrip, low albumin at 2,, prealbumin of 9. Consult gift shop assistant. Patient with cdiff colitis also Physical deconditioning Consult PT HTN (hypertension) Hold ACEI Continue on Amlodipine and Metoprolol Dementia Continue home meds DVT ppx SCD/TEDS Discussed Condition With Patient, nurse DC plan: Pending improvement, DC to SNF likely. Patient stated with leukocytosis, improving slowly still with diarrhea. Plan to discharge to [facility] when he improves, no diarrhea, kidney function back to baseline and when WBC improves. Vancomycin taper by mouth for 6 weeks at discharge per infectious disease recommendations. Vianey Verdugo MD Jun 20, 2017 10:00
[2017-06-20 12:54] LABS: AUTOMATED NEUTROPHIL # 25.4 TH/MM3 (1.8-7.7); BASOPHIL # 0.2 TH/MM3 (0-0.2); BASOPHIL % 0.6 % (0.0-2.0); EOSINOPHIL # 0.2 TH/MM3 (0-0.4); EOSINOPHIL % 0.8 % (0.0-4.0); HEMATOCRIT 33.3 % (39.0-51.0); LYMPH % 6.4 % (9.0-44.0); LYMPHOCYTE # 1.9 TH/MM3 (1.0-4.8); MEAN CELL VOLUME 95.2 FL (80.0-100.0); MEAN CORPUSCULAR HEMOGLOBIN 30.8 PG (27.0-34.0); MEAN CORPUSCULAR HGB CONC 32.3 % (32.0-36.0); MONO % 5.3 % (0.0-8.0); NEUT % 86.9 % (16.0-70.0); PLATELET COUNT 107 TH/MM3 (150-450); RED CELL DISTRIBUTION WIDTH 14.2 % (11.6-17.2); WHITE BLOOD COUNT 29.2 TH/MM3 (4.0-11.0)
[2017-06-20 13:01] LABS: HEMO FLAGS AUTO DIFF
[2017-06-20 13:08] LABS: BICARBONATE 19.9 MEQ/L (21.0-32.0); POTASSIUM 3.8 MEQ/L (3.5-5.1)
[2017-06-20 13:40] LABS: BANDS 22 % (0-6); EOSINOPHILS 2 % (0-4); NEUTROPHIL # MANUAL DIFF 26.9 TH/MM3 (1.8-7.7); POLYS (SEG NEUTROPHILS) 70 % (16-70); WBC DIFF SAMPLE 100
[2017-06-20 13:41] LABS: TOXIC GRANULATION 1+ (NORMAL); TOXIC VACUOLATION PRESENT (NONE SEEN)
[2017-06-20 13:42] LABS: PLATELET ESTIMATE SMEAR LOW (NORMAL)
[2017-06-20 13:43] LABS: ACANTHOCYTES OCC (NORMAL)
[2017-06-20 13:45] LABS: OVALOCYTES 1+ (NORMAL); PLATELET MORPHOLOGY NORMAL (NORMAL); SCAN/DIFF FINAL DIFF MANUAL
[2017-06-20] MEDS: ENOXAPARIN SODIUM 30 MG/0.3 ML SYRINGE SQ SCH (17:16)
[2017-06-20] MEDS: DONEPEZIL HCL 5 MG TAB PO SCH (20:11)
[2017-06-21] VITALS (28 sets, daily range): BP systolic 112–133; BP diastolic 59–72; PULSE 2–92; RESP 16–20; TEMP 97.8–98.6; O2SAT 97–98
[2017-06-21] MEDS: FREE WATER G-TUBE SCH ×5 (00:32→23:12)
[2017-06-21 07:38] LABS: AUTOMATED NEUTROPHIL # 29.2 TH/MM3 (1.8-7.7); BASOPHIL # 0.1 TH/MM3 (0-0.2); BASOPHIL % 0.2 % (0.0-2.0); EOSINOPHIL # 0.2 TH/MM3 (0-0.4); EOSINOPHIL % 0.6 % (0.0-4.0); HEMATOCRIT 33.4 % (39.0-51.0); MEAN CELL VOLUME 94.7 FL (80.0-100.0); MEAN CORPUSCULAR HGB CONC 32.7 % (32.0-36.0); MONO % 4.1 % (0.0-8.0); NEUT % 89.1 % (16.0-70.0); PLATELET COUNT 114 TH/MM3 (150-450); RED BLOOD COUNT 3.53 MIL/MM3 (4.50-5.90); WHITE BLOOD COUNT 32.8 TH/MM3 (4.0-11.0)
[2017-06-21 07:40] LABS: HEMO FLAGS AUTO DIFF
[2017-06-21 08:06] LABS: POTASSIUM 3.8 MEQ/L (3.5-5.1)
[2017-06-21 08:21] LABS: BANDS 3 % (0-6); NEUTROPHIL # MANUAL DIFF 31.2 TH/MM3 (1.8-7.7); POLYS (SEG NEUTROPHILS) 92 % (16-70); WBC DIFF SAMPLE 100
[2017-06-21 08:22] LABS: PLATELET MORPHOLOGY NORMAL (NORMAL)
[2017-06-21 08:23] LABS: PLATELET ESTIMATE SMEAR LOW (NORMAL); SCAN/DIFF FINAL DIFF MANUAL
[2017-06-21] MEDS: DOCUSATE SODIUM 50 MG/SENNA 8.6 MG TAB PO SCH ×2 (09:00→21:00)
[2017-06-21] MEDS: SODIUM CHLORIDE 0.9% FLUSH 10 ML FLUSH IV FLUSH SCH ×2 (09:00→21:00)
[2017-06-21] MEDS: VANCOMYCIN 500 MG VIAL (FOR ORAL USE ONLY) PO SCH ×4 (10:00→21:17)
[2017-06-21] MEDS: CHOLECALCIFEROL (VIT D3) 1000 UNIT TAB PO SCH (10:02)
[2017-06-21] MEDS: LACTOBACILLUS ACIDOPHILUS TAB PO SCH ×3 (10:02→18:00)
[2017-06-21] MEDS: METOPROLOL TARTRATE 25 MG TAB PO SCH (10:02)
[2017-06-21] MEDS: SODIUM CHLOR 0.45% 1000 ML INJ 1,000 ML IV SCH ×2 (10:08→23:12)
--- NOTE | 2017-06-21 13:11 | HHI.PR ---
Subjective Remarks Seen earlier today. Feels tired. Pleasantly confused, however more awake and alert. Still with diarrhea, unable to tell me how many BM. Denies abd pain ./ Per nurse he is eating fairly well. No fever or chills. Objective Vitals Vital Signs Date Time Temp Pulse Resp B/P (MAP) Pulse Ox O2 Delivery O2 Flow Rate FiO2 06/21/17 08:30 97.8 84 16 120/68 (85) 98 06/21/17 06:00 78 06/21/17 05:00 74 06/21/17 04:24 82 18 128/65 (86) 97 06/21/17 04:00 72 06/21/17 03:00 80 06/21/17 02:00 72 06/21/17 01:00 76 06/21/17 00:00 77 06/20/17 23:37 98.6 69 18 129/55 (79) 96 06/20/17 23:00 72 06/20/17 22:00 71 06/20/17 21:00 79 06/20/17 20:00 98.4 74 18 121/55 (77) 97 06/20/17 20:00 74 06/20/17 18:00 70 06/20/17 17:00 62 06/20/17 16:05 48 06/20/17 15:38 98.2 68 16 129/76 (93) 98 06/20/17 15:00 53 06/20/17 14:00 66 I/O 06/20/17 06/20/17 06/20/17 06/21/17 06/21/17 06/21/17 07:00 15:00 23:00 07:00 15:00 23:00 Intake Total 1240 ml 340 ml 240 ml 1000 ml Output Total 450 ml 400 ml 500 ml Balance 790 ml -60 ml -260 ml 1000 ml Intake Oral 240 ml 340 ml 240 ml IV Total 1000 ml 1000 ml Output Urine Total 450 ml 400 ml 500 ml # Bowel Movements 3 3 Result Diagram: 06/21/17 0648 06/21/1748 Imaging Last Impressions Renal Ultrasound 06/16/17 0000 Signed Impressions: Service Date/Time: Friday, June 16, 2017 20:41 - CONCLUSION: No acute disease. Suhas Terrazas MD Objective Remarks GENERAL: This is a pleasantly confused 86 yo male, well-nourished, well- developed patient, in no apparent distress. SKIN: No rashes, ecchymoses or lesions. Cool and dry. HEAD: Atraumatic. Normocephalic. No temporal or scalp tenderness. EYES: Pupils equal round and reactive. Extraocular motions intact. No scleral icterus. No injection or drainage. ENT: Nose without bleeding, purulent drainage or septal hematoma. Throat without erythema, tonsillar hypertrophy or exudate. Uvula midline. Airway patent. NECK: Trachea midline. No JVD or lymphadenopathy. Supple, nontender, no meningeal signs. CARDIOVASCULAR: Regular rate and rhythm without murmurs, gallops, or rubs. RESPIRATORY: Clear to auscultation. Breath sounds equal bilaterally. No wheezes , rales, or rhonchi. GASTROINTESTINAL: Abdomen soft, diffuse tenderness, nondistended. No guarding. MUSCULOSKELETAL: Extremities without clubbing, cyanosis, or edema. No joint tenderness, effusion, or edema noted. No calf tenderness. Negative Homans sign bilaterally. NEUROLOGICAL: Awake and alert. Cranial nerves II through XII intact. Motor and sensory grossly within normal limits. Normal speech. A/P Assessment and Plan Renal failure. Kidney function is improving monitor closely Vit D deficiency . Start vit D supplement Appears ZOLTAN related to volume depletion in setting of dehydration from diarrhea. Recent increase in ACEI likely also contributing. Agree with IVF Check renal US Hold ACEI Consult nephrology, appreciate recommendations Medications should be adjusted for the patient's renal dysfunction. Avoid nephrotoxic agents such as iodinated contrast dyes and NSAIDs. Avoid gadolinium. Sepsis with C. difficile colitis with tachycardia, leukocytosis, LA on admission. Monitor CBC, LA. LA back to normal. WBC trending down. Hypernatremia imprpving, continue 1/2 NS , monitor Na level. Encourage Free water he was treated with PO vanco and finished course of antibiotic. Continue vancomycin PO ID on consult as patient with failed treatment as OP, persistent cdiff colitis - sepsis Repeat stool positive for Cdiff Blood cultures NTD and urine cultures are neg Failure to thrive in adult- swallow evaluation . Consult continuity writer, Check prealbumin Severe protein calorie malnutrition. Frail cachectic weak handgrip, low albumin at 2,, prealbumin of 9. Consult continuity writer. Patient with cdiff colitis also Physical deconditioning Consult PT HTN (hypertension) Hold ACEI Continue on Amlodipine and Metoprolol Dementia Continue home meds DVT ppx SCD/TEDS Discussed Condition With Patient, nurse DC plan: Pending improvement, DC to SNF likely. Patient stated with leukocytosis, improving slowly still with diarrhea. Plan to discharge to SNF when he improves, no diarrhea, kidney function back to baseline and when WBC improves. Vancomycin taper by mouth for 6 weeks at discharge per infectious disease recommendations. Vianey Verdugo MD Jun 21, 2017 13:11
[2017-06-21] MEDS: ENOXAPARIN SODIUM 30 MG/0.3 ML SYRINGE SQ SCH (17:00)
[2017-06-21] MEDS: DONEPEZIL HCL 5 MG TAB PO SCH (21:17)
[2017-06-22] VITALS (28 sets, daily range): BP systolic 111–147; BP diastolic 46–73; PULSE 59–104; RESP 16–22; TEMP 97.4–98.2; O2SAT 94–100
[2017-06-22] MEDS: FREE WATER G-TUBE SCH ×3 (05:38→17:23)
[2017-06-22] MEDS: METOPROLOL TARTRATE 25 MG TAB PO SCH (09:00)
[2017-06-22] MEDS: CHOLECALCIFEROL (VIT D3) 1000 UNIT TAB PO SCH (09:00)
[2017-06-22] MEDS: SODIUM CHLORIDE 0.9% FLUSH 10 ML FLUSH IV FLUSH SCH (09:00)
[2017-06-22] MEDS: LACTOBACILLUS ACIDOPHILUS TAB PO SCH ×3 (09:00→17:24)
[2017-06-22] MEDS: VANCOMYCIN 500 MG VIAL (FOR ORAL USE ONLY) PO SCH ×4 (09:00→21:30)
[2017-06-22] MEDS: DOCUSATE SODIUM 50 MG/SENNA 8.6 MG TAB PO SCH (09:00)
[2017-06-22] MEDS: SODIUM CHLOR 0.45% 1000 ML INJ 1,000 ML IV SCH (11:30)
--- NOTE | 2017-06-22 13:35 | PD.CONS ---
HPI History of Present Illness This is a 86 year old male who was admitted to the hospital on 06/16/17. Patient was recently admitted to the hospital and treated with C. difficile, went to [facility] for a 10 day stay, then home for a couple of days. states that he is so weak she is unable to care for him, and his diarrhea continues. Patient has no complaints of abdominal pain, but does continue with uncontrolled diarrhea with obvious dark blood at times. Patient is demented, and does on occasion refuses medication as well as his care from the staff. Patient did allow my exam of his abdomen today, but states that he would not allow another exam today. is here at his bedside, and offers history and current on medical information on his symptoms. Patient has no obvious nausea or vomiting, no fever, no abdominal distention, history of some constipation according to his , still having diarrhea. Current C. difficile toxin testing shows positive. Patient is now showing positive blood cultures which will be followed by the attending. (Brianne Pandey) PFSH Past Medical History Dementia HTN C. diff colitis Past Surgical History Appendectomy Tonsillectomy (Brianne Pandey) Coded Allergies: No Known Allergies (Unverified Allergy, Unknown, 06/16/17) Medications Administered Medications Medications (Trade) Dose Ordered Sig/Wang Route PRN Reason Start Time Stop Time Status Last Admin Dose Admin Vancomycin HCl (VANCOMYCIN for oral use only) 250 mg QID PO 06/16/17 18:00 06/21/17 21:17 Amlodipine Besylate (Norvasc) 10 mg DAILY PO 06/17/17 09:00 06/21/17 10:02 Donepezil HCl (Aricept) 10 mg HS PO 06/16/17 21:00 06/21/17 21:17 Lactobacillus Acidophilus (Lactinex) 1 tab TID PO 06/16/17 18:00 06/21/17 18:00 Metoprolol Tartrate (Lopressor) 25 mg DAILY PO 06/17/17 09:00 06/21/17 10:02 Sodium Chloride (NS Flush) 2 ml BID IV FLUSH 06/16/17 21:00 06/20/17 20:11 Enoxaparin Sodium (Lovenox Inj) 30 mg Q24H SQ 06/16/17 17:00 06/20/17 17:16 Sodium Chloride 1,000 ml @ 84 mls/hr [id number] IV 06/17/17 07:45 06/22/17 11:30 Cholecalciferol (Vitamin D3) 2,000 units DAILY PO 06/18/17 09:00 06/21/17 10:02 Family History Denies Social History Denies EtOH No illicit drug use No tobacco use (Brianne Pandey) Review of Systems Gastrointestinal: COMPLAINS OF: Diarrhea (Brianne Pandey) GI Exam Vitals I&O Vital Signs Date Time Temp Pulse Resp B/P (MAP) Pulse Ox O2 Delivery O2 Flow Rate FiO2 06/22/17 09:28 93 06/22/17 07:00 93 06/22/17 06:00 86 06/22/17 05:00 86 06/22/17 04:00 97.9 88 22 147/46 (79) 99 06/22/17 04:00 74 06/22/17 03:00 78 06/22/17 02:00 68 06/22/17 01:00 70 06/22/17 00:00 97.4 73 22 111/60 (77) 98 06/22/17 00:00 59 06/21/17 23:00 76 06/21/17 22:00 74 06/21/17 21:00 76 06/21/17 20:00 76 06/21/17 20:00 98.6 76 20 123/66 (85) 06/21/17 19:00 82 06/21/17 18:00 66 06/21/17 17:00 64 06/21/17 16:00 58 06/21/17 15:15 98.1 63 16 133/72 (92) 98 06/21/17 15:00 65 06/21/17 14:00 60 I/O 06/21/17 06/21/17 06/21/17 06/22/17 06/22/17 06/22/17 07:00 15:00 23:00 07:00 15:00 23:00 Intake Total 240 ml 1000 ml 923 ml 1220 ml 1000 ml Output Total 500 ml 600 ml 850 ml Balance -260 ml 1000 ml 323 ml 370 ml 1000 ml Intake Oral 240 ml 360 ml 220 ml IV Total 1000 ml 563 ml 1000 ml 1000 ml Output Urine Total 500 ml 600 ml 850 ml # Bowel Movements 3 3 1 Imaging Last Impressions Renal Ultrasound 06/16/17 0000 Signed Impressions: Service Date/Time: Friday, June 16, 2017 20:41 - CONCLUSION: No acute disease. Suhas Terrazas MD Laboratory Date/Time Source Procedure Growth Status 06/20/17 12:40 Blood Peripheral Aerobic Blood Culture - Preliminary NO GROWTH IN 2 DAYS Resulted 06/20/17 12:40 Blood Peripheral Anaerobic Blood Culture - Preliminary NO GROWTH IN 2 DAYS Resulted 06/21/17 16:52 Stool Stool Stool Occult Blood (SLIM) - Final HEMOCCULT POSITIVE Complete 06/16/17 14:57 Urine Catheterized Urine Urine Culture - Final NO GROWTH IN 48 HOURS. Complete Physical Examination HEENT: Pupils reactive to light; normocephalic; atraumatic; no jaundice. Oral cavity dry, with some crusted secretions NECK: Neck is thin CHEST: Chest is clear anteriorly, decreased at bases CARDIAC: Regular rate and rhythm with no murmur gallop or rubs. ABDOMEN: Soft, nondistended, nontender; no hepatosplenomegaly; bowel sounds are active in all four quadrants. EXTREMITIES: No clubbing, cyanosis, or edema. SKIN: Thin no rash; no jaundice. VENEER DEPARTMENT MANAGER: That is at times, does respond to simple conversation and tactile stimuli (Brianne Pandey) Assessment and Plan Assessment: (1) Bloody diarrhea ICD Codes: R19.7 - Diarrhea, unspecified (2) Clostridium difficile diarrhea ICD Codes: A04.72 - Enterocolitis due to Clostridium difficile, not specified as recurrent (3) Colitis ICD Codes: K52.9 - Noninfective gastroenteritis and colitis, unspecified Status: Acute (4) Dementia ICD Codes: F03.90 - Unspecified dementia without behavioral disturbance (5) C. difficile colitis ICD Codes: A04.72 - Enterocolitis due to Clostridium difficile, not specified as recurrent (6) Failure to thrive in adult ICD Codes: R62.7 - Adult failure to thrive Status: Acute Plan Diet, maintain regular diet for now to encourage patient's caloric intake, at least offer clear liquids if patient does not want to eat Monitor hemoglobin for any acute drops Hemoccult stools Flagyl by mouth Prednisone 10 mg by mouth twice a day Monitor lab work, recheck in a.m. Please call GI for any acute bleeding or hemorrhage Continue C. difficile treatment, per ID has been evaluated for at least by mouth vancomycin for 6 weeks Unknown recent EGD or colonoscopy according to , possible colonoscopy once patient is stable. Plan a care and course of treatment will be based on symptoms This patient has been seen by myself and Dr. Joy, note was written on his behalf (Brianne Pandey) Physician Comments Patient seen and examined Agree with above Continue with current supportive care Monitor labs At this point the most urgent issue appears to be the C. difficile colitis we will continue with current treatment plan as per the infectious disease service We will monitor her bowel movements for any further bleeding No urgent need at this point for a colonoscopy but that something to contemplate if patient's condition improves Patient is currently on too many laxatives and therefore I have withheld some of them this only confuses the picture one were treating C. difficile colitis I don't think we need to use prednisone at this point we'll hold off and continue with antibiotics and close monitoring of vitals and lab works (Tommie Joy MD) Brianne Pandey Jun 22, 2017 13:35 Tommie Joy MD Jun 22, 2017 20:22
[2017-06-22] MEDS ORDERED: predniSONE 10 MG TAB PO SCH (13:45)
--- NOTE | 2017-06-22 14:00 | HHI.PR ---
Subjective Remarks f/u; sepsis/ GI bleed/ C-diff colitis in no acute distress. afebrile. still with some soft BM's. family at the bedside. d/w the RN. Objective Vitals Vital Signs Date Time Temp Pulse Resp B/P (MAP) Pulse Ox O2 Delivery O2 Flow Rate FiO2 06/22/17 09:28 93 06/22/17 07:00 93 06/22/17 06:00 86 06/22/17 05:00 86 06/22/17 04:00 97.9 88 22 147/46 (79) 99 06/22/17 04:00 74 06/22/17 03:00 78 06/22/17 02:00 68 06/22/17 01:00 70 06/22/17 00:00 97.4 73 22 111/60 (77) 98 06/22/17 00:00 59 06/21/17 23:00 76 06/21/17 22:00 74 06/21/17 21:00 76 06/21/17 20:00 76 06/21/17 20:00 98.6 76 20 123/66 (85) 06/21/17 19:00 82 06/21/17 18:00 66 06/21/17 17:00 64 06/21/17 16:00 58 06/21/17 15:15 98.1 63 16 133/72 (92) 98 06/21/17 15:00 65 06/21/17 14:00 60 I/O 06/21/17 06/21/17 06/21/17 06/22/17 06/22/17 06/22/17 07:00 15:00 23:00 07:00 15:00 23:00 Intake Total 240 ml 1000 ml 923 ml 1220 ml 1000 ml Output Total 500 ml 600 ml 850 ml Balance -260 ml 1000 ml 323 ml 370 ml 1000 ml Intake Oral 240 ml 360 ml 220 ml IV Total 1000 ml 563 ml 1000 ml 1000 ml Output Urine Total 500 ml 600 ml 850 ml # Bowel Movements 3 3 1 Result Diagram: 06/21/17 0648 06/21/17 0648 Imaging Last Impressions Renal Ultrasound 06/16/17 0000 Signed Impressions: Service Date/Time: Friday, June 16, 2017 20:41 - CONCLUSION: No acute disease. Suhas Terrazas MD Objective Remarks GENERAL: This is a well-nourished, well-developed patient, in no apparent distress. CARDIOVASCULAR: Regular rate and regular rhythm without murmurs, gallops, or rubs. RESPIRATORY: Clear to auscultation. Breath sounds equal bilaterally. No wheezes , rales, or rhonchi. GASTROINTESTINAL: Abdomen soft, non-tender, nondistended. Normal, active bowel sounds MUSCULOSKELETAL: Extremities without clubbing, cyanosis, or edema. NEURO: oriented to person and partly to place. Medications and IVs Current Medications Sodium Chloride (NS Flush) 2 ml UNSCH PRN IVF FLUSH AFTER USING IV ACCESS; Start 06/16/17 at 14:00; Stop 06/16/17 at 16:30; Status DC Sodium Chloride 500 ml @ 500 mls/hr ONCE ONCE IV Last administered on 14:27; Start 06/16/17 at 14:00; Stop 06/16/17 at 14:59; Status DC Sodium Chloride 1,000 ml @ 999 mls/hr BOLUS ONCE IV Last administered on 06/16 15:52; Start 06/16/17 at 15:30; Stop 06/16/17 at 16:30; Status DC Metronidazole 100 ml @ 100 mls/hr ONCE ONCE IV Last administered on 16:00; Start 06/16/17 at 15:45; Stop 06/16/17 at 16:44; Status DC Sodium Chloride 1,000 ml @ 999 mls/hr BOLUS ONCE IV Last administered on 06/16 15:30; Start 06/16/17 at 15:45; Stop 06/16/17 at 16:45; Status DC Vancomycin HCl (VANCOMYCIN for oral use only) 250 mg QID PO Last administered on 06/22/17 13:30; Start 06/16/17 at 18:00 Amlodipine Besylate (Norvasc) 10 mg DAILY PO Last administered on 06/21/17 10 :02; Start 06/17/17 at 09:00 Donepezil HCl (Aricept) 10 mg HS PO Last administered on 06/21/17 21:17; Start 06/16/17 at 21:00 Lactobacillus Acidophilus (Lactinex) 1 tab TID PO Last administered on 13:30; Start 06/16/17 at 18:00 Lisinopril (Prinivil) 10 mg DAILY PO ; Start 06/17/17 at 09:00; Stop 06/17/17 at 09:00; Status DC Metoprolol Tartrate (Lopressor) 25 mg DAILY PO Last administered on 06/21/17 10:02; Start 06/17/17 at 09:00 Sodium Chloride 1,000 ml @ 100 mls/hr Q10H IV Last administered on 06/16/17 17:45; Start 06/16/17 at 16:00; Stop 06/17/17 at 07:44; Status DC Sodium Chloride (NS Flush) 2 ml UNSCH PRN IV FLUSH FLUSH AFTER USING IV ACCESS ; Start 06/16/17 at 16:00 Sodium Chloride (NS Flush) 2 ml BID IV FLUSH Last administered on 06/20/17 20 :11; Start 06/16/17 at 21:00 Ondansetron HCl (Zofran Inj) 4 mg Q6H PRN IVP NAUSEA OR VOMITING; Start at 16:00 Temazepam (Restoril) 15 mg HS PRN PO INSOMNIA; Start 06/16/17 at 16:00 Enoxaparin Sodium (Lovenox Inj) 30 mg Q24H SQ Last administered on 06/20/17 17:16; Start 06/16/17 at 17:00 Naloxone HCl (Narcan Inj) 0.4 mg UNSCH PRN IV PUSH SEE LABEL COMMENTS; Start 06/16/17 at 16:00 Senna/Docusate Sodium (Brii-Colace) 1 tab BID PO ; Start 06/16/17 at 21:00 Magnesium Hydroxide (Milk Of Magnesia Liq) 30 ml Q12H PRN PO Mild constipation ; Start 06/16/17 at 16:00 Sennosides (Senokot) 17.2 mg Q12H PRN PO Moderate constipation; Start 06/16/17 at 16:00 Bisacodyl (Dulcolax Supp) 10 mg DAILY PRN RECTAL SEVERE CONSITIPATION; Start 06/16/17 at 16:00 Lactulose (Lactulose Liq) 30 ml DAILY PRN PO SEVERE CONSITIPATION; Start at 16:00 Pneumococcal Polyvalent Vaccine (Pneumovax-23 Inj) 25 mcg ONCE ONCE IM Last administered on 06/17/17 10:45; Start 06/17/17 at 09:00; Stop 06/17/17 at 09:01 ; Status DC Sodium Chloride 1,000 ml @ 84 mls/hr [id number] IV Last administered on 11:30; Start 06/17/17 at 07:45 Water (Free Water) 200 ml Q6HR G-TUBE ; Start 06/17/17 at 08:00 Cholecalciferol (Vitamin D3) 2,000 units DAILY PO Last administered on 10:02; Start 06/18/17 at 09:00 Sodium Chloride 1,000 ml @ 999 mls/hr BOLUS ONCE IV Last administered on 06/18 15:00; Start 06/18/17 at 15:00; Stop 06/18/17 at 16:00; Status DC Potassium Bicarbonate (Effer-K Eff) 50 meq ONCE ONCE PO Last administered on 06/19/17 12:01; Start 06/19/17 at 09:30; Stop 06/19/17 at 09:31; Status DC A/P Assessment and Plan A/P Renal failure. Kidney function is improving monitor closely Vit D deficiency . Start vit D supplement Appears ZOLTAN related to volume depletion in setting of dehydration from diarrhea. Recent increase in ACEI likely also contributing. continue IV fluid-gentle hydration. renal sonogram with no acute abnormality. Hold ACEI Consult nephrology, appreciate recommendations Medications should be adjusted for the patient's renal dysfunction. Avoid nephrotoxic agents such as iodinated contrast dyes and NSAIDs. Avoid gadolinium. Sepsis with C. difficile colitis he was treated with PO vanco and finished course of antibiotic. Continue vancomycin PO. ID consulted. Repeat stool positive for Cdiff occult GI bleed- GI consulted- monitor H/H Failure to thrive in adult- swallow evaluation . Consult dairy scientist, Check prealbumin Severe protein calorie malnutrition. Frail cachectic weak handgrip, low albumin at 2,, prealbumin of 9. Consult dairy scientist. Patient with cdiff colitis also Physical deconditioning Consult PT HTN (hypertension) Hold ACEI Continue on Amlodipine and Metoprolol Dementia Continue home meds DVT ppx SCD/TEDS d/w the family at the bedside at length- the family were updated on the findings nand plan. code status was discussed and the family to bring a copy of his living will. in light of the age , dementia and multiple comorbidities palliative care consult was offered which the family agreed; will consult palliative care. Discharge Planning awaiting GI and palliative care evaluation. Adi Win MD Jun 22, 2017 13:59
[2017-06-22] MEDS: metroNIDAZOLE 500 MG TAB PO SCH (15:48)
[2017-06-22] MEDS: ENOXAPARIN SODIUM 30 MG/0.3 ML SYRINGE SQ SCH (17:00)
--- NOTE | 2017-06-22 17:22 | PD.CONS ---
Consult Service Palliative Care . Consult Requested By Dr. Win . Primary Care Physician Jose Jc MD . Reason for Consultation a. To assist with evaluation and management of symptoms including: decreased appetite, debility, confusion b. To assist medical decision maker(s) with: better understanding of current medical conditions; weighing benefits/burdens of medical treatment options; making medical treatment decisions. . HPI History of Present Illness Mr. Key is an 86-year-old male with a history of dementia, hypertension and C. difficile who presented to [facility] ED on 06/16/2017 for evaluation of generalized weakness. Patient's stated that the patient fell asleep on the floor at approximately 2000 and remained there overnight. Apparently EMS was called (non-emergency) in the morning because the patient was to weak to get up off the floor. Mr. Key was hospitalized for 3 days in 05/2017 for management of sepsis and severe C. difficile colitis. Upon discharge, the patient was transferred to a long-term facility on oral vancomycin. He stayed at the SNF 10 days and was discharged with home health and rehabilitation in his home. The patient's states her has decompensated since returning home. She endorses poor appetite and increased weakness, additionally the patient has started to have diarrhea again. Additional diagnostic data: * Pulse: 94, respirations 18, BP 110/64, oxygen saturation 99% on room air, oral temperature 97.7 * WBC: 30.0, hemoglobin 14.6, hematocrit 44.3, platelets 151, neutrophils 86.2% * Sodium: 143, potassium 4.8, chloride 108, carbon dioxide 24.9, glucose 96, calcium 10.7 * BUN: 75, creatinine 5.15, GFR 11 * Lactic acid: 2.2 * Total bilirubin: 1.0, AST 61, ALT 30, alkaline phosphatase 131 * Total creatine kinase: 1016 * CK-MB: 6.5 * Troponin: 6.1 * BNP: 33 * Total protein: 6.1, albumin 2.3 * UA indicative of UTI * U/S kidney showed no acute disease. Patient was tachycardic with an elevated WBC at 30,000 concerning for sepsis, likely secondary to C. difficile colitis. Stool cultures pending; patient was started on Flagyl and oral Vancomycin. Patient's creatinine was elevated at 5.5 , his baseline creatinine is normally 0.94. Patient was admitted for further evaluation and medical management of sepsis, colitis, ZOLTAN and adult failure to thrive. Nephrology was consulted given patient's ZOLTAN which is likely related to volume depletion in the setting of dehydration from diarrhea. Nephrology will continue to monitor. Patient was treated for C. difficile in 05/2017, and the patient's reports he completed the recommended course of antibiotics. Patient's reports the patient started having diarrhea again and that his appetite was poor; now with recurrent C. difficile colitis and leukocytosis. Infectious disease was consulted to assist with management, recommending the patient be treated with a taper dose of vancomycin over a 6 week. Patient's appetite has decreased. He is a frail, cachectic male who has experienced an acute decline in recent months. Albumin is low at 2; pre-albumin of 9. Speech therapy has been following the patient who is on a mechanically soft diet with thin liquids. Dietary has been consulted for recommendations. Patient having persistent, uncontrolled diarrhea with obvious dark blood at times. He denies abdominal pain, nausea, vomiting. Gastroenterology was consulted and will continue to follow. Monitoring H/H which was 10.9/33.4 on . Will Hemoccult stools and consider EGD/colonoscopy once patient is stable. Palliative Care was consulted to assist with symptom management and to discuss with the patient/family the benefits and burdens of his current illnesses and the options regarding future care. . Function/Cognitive Trajectory Information obtained through review of notes. It appears the patient was relatively independent up until his hospitalization in May, for management of sepsis and C. difficile. He was discharged on oral vancomycin and transferred to a long-term facility for rehabilitation 10 days, returning home with home health visits and rehabilitation. However, the patient rapidly decompensated after returning home. The patient's reports that the patient has had decreased oral intake, and he is now unable to perform ADLs independently and is too weak to feed himself. . Review of Systems Constitutional: COMPLAINS OF: Fatigue, Weight loss, Change in appetite, Generalized weakness Gastrointestinal: COMPLAINS OF: Bloody stools, Diarrhea, DENIES: Nausea, Vomiting Psychiatric: COMPLAINS OF: Confusion Past Family Social History Coded Allergies: No Known Allergies (Unverified Allergy, Unknown, 06/16/17) Past Medical History Dementia HTN C. difficile colitis . Past Surgical History Appendectomy Tonsillectomy . Reported Medications Amlodipine (Amlodipine Besylate) 10 Mg Tab 10 Mg PO DAILY Metoprolol Tartrate 25 Mg Tab 25 Mg PO DAILY Lisinopril 10 Mg Tab 10 Mg PO DAILY Donepezil 23 Mg Tab 10 Mg PO HS Do not split, crush or chew. . Current Medications Medications (Trade) Dose Ordered Sig/Wang Route Start Time Stop Time Status Last Admin (VANCOMYCIN for oral use only) 250 mg QID PO 06/16/17 18:00 06/22/17 13:30 (Norvasc) 10 mg DAILY PO 06/17/17 09:00 06/21/17 10:02 (Aricept) 10 mg HS PO 06/16/17 21:00 06/21/17 21:17 (Lactinex) 1 tab TID PO 06/16/17 18:00 06/22/17 13:30 (Lopressor) 25 mg DAILY PO 06/17/17 09:00 06/21/17 10:02 (NS Flush) 2 ml UNSCH PRN IV FLUSH 06/16/17 16:00 (NS Flush) 2 ml BID IV FLUSH 06/16/17 21:00 06/20/17 20:11 (Zofran Inj) 4 mg Q6H PRN IVP 06/16/17 16:00 (Restoril) 15 mg HS PRN PO 06/16/17 16:00 (Lovenox Inj) 30 mg Q24H SQ 06/16/17 17:00 06/20/17 17:16 (Narcan Inj) 0.4 mg UNSCH PRN IV PUSH 06/16/17 16:00 (Brii-Colace) 1 tab BID PO 06/16/17 21:00 (Milk Of Magnesia Liq) 30 ml Q12H PRN PO 06/16/17 16:00 (Senokot) 17.2 mg Q12H PRN PO 06/16/17 16:00 (Dulcolax Supp) 10 mg DAILY PRN RECTAL 06/16/17 16:00 (Lactulose Liq) 30 ml DAILY PRN PO 06/16/17 16:00 Sodium Chloride 1,000 ml @ 50 mls/hr Q20H IV 06/17/17 07:45 06/22/17 11:30 (Free Water) 200 ml Q6HR G-TUBE 06/17/17 08:00 (Vitamin D3) 2,000 units DAILY PO 06/18/17 09:00 06/21/17 10:02 (Flagyl) 500 mg Q8H PO 06/22/17 16:00 06/22/17 15:48 (Deltasone) 10 mg BID PO 06/22/17 13:45 06/22/17 15:48 . Family History Pending further conversation with patient's family. . Substance Use Tobacco: None known Alcohol: None known Prescription med abuse: None known Illicits: None known . Psychosocial History Patient is a poor historian. He states he is originally from [place] but was unable to provide any other information. Further information pending conversation with patient's family. . Spiritual/Cultural Factors None known at this time . Documented care wishes: No completed documented care wishes are available at this time, however the patient's family has indicated he has completed a living will. They will bring in a copy at their next visit. . Today's verbally stated goals: Patient currently has limited insight and judgment in relation to his medical conditions, given his baseline dementia it is unlikely he will regain this capacity. . Physical Exam Vital Signs Date Time Temp Pulse Resp B/P (MAP) Pulse Ox O2 Delivery O2 Flow Rate FiO2 06/22/17 15:51 98.2 69 17 144/73 (96) 98 06/22/17 12:00 98.2 83 16 127/65 (85) 100 06/22/17 09:28 93 06/22/17 09:25 94 Nasal Cannula 2.00 06/22/17 07:00 93 06/22/17 06:00 86 06/22/17 05:00 86 06/22/17 04:00 97.9 88 22 147/46 (79) 99 06/22/17 04:00 74 06/22/17 03:00 78 06/22/17 02:00 68 06/22/17 01:00 70 06/22/17 00:00 97.4 73 22 111/60 (77) 98 06/22/17 00:00 59 06/21/17 23:00 76 06/21/17 22:00 74 06/21/17 21:00 76 06/21/17 20:00 76 06/21/17 20:00 98.6 76 20 123/66 (85) 06/21/17 19:00 82 06/21/17 18:00 66 06/21/17 17:00 64 06/22/17 06/23/17 19:00 07:00 Intake Total 1000 ml Balance 1000 ml IV Total 1000 ml Exam CONSTITUTIONAL/GENERAL: This is an adequately nourished patient, in no apparent distress. TUBES/LINES/DRAINS: SKIN: No jaundice, rashes, or lesions. Ecchymoses on upper extremities. No wounds seen anteriorly. Skin temperature appropriate. Not diaphoretic. HEAD: Atraumatic. Normocephalic. EYES: Pupils equal and round and reactive. Extraocular motions intact. No scleral icterus. No injection or drainage. Fundi not examined. ENT: Hearing grossly normal. Nose without bleeding or purulent drainage. Throat without visible erythema, exudates, masses, or lesions. NECK: Trachea midline. Supple, nontender. No palpable thyroid enlargement or nodularity. CARDIOVASCULAR: Regular rate and rhythm without murmurs, gallops, or rubs. No JVD. Peripheral pulses symmetric. RESPIRATORY/CHEST: Symmetric, unlabored respirations. Clear to auscultation. Breath sounds equal bilaterally. No wheezes, rales, or rhonchi. GASTROINTESTINAL: Abdomen soft, non-tender, nondistended. No hepato-splenomegaly , or palpable masses. No guarding. Bowel sounds present. GENITOURINARY: Without palpable bladder distension. Lowry catheter in place. MUSCULOSKELETAL: Extremities without clubbing, cyanosis, or edema. No joint tenderness or effusion noted. No calf tenderness. No mottling or clubbing. LYMPHATICS: No palpable cervical or supraclavicular adenopathy. NEUROLOGICAL: Awake and alert. Motor and sensory grossly within normal limits. Follows commands. Cognitively sharp. Moves all extremities. PSYCHIATRIC: No obvious anxiety/depression. no apparent hallucinations or other psychotic thought process. Diagnostic Tests Laboratory Laboratory Tests Test 06/20/17 12:30 06/21/17 06:48 White Blood Count 29.2 TH/MM3 (4.0-11.0) 32.8 TH/MM3 (4.0-11.0) Red Blood Count 3.50 MIL/MM3 (4.50-5.90) 3.53 MIL/MM3 (4.50-5.90) Hemoglobin 10.8 GM/DL (13.0-17.0) 10.9 GM/DL (13.0-17.0) Hematocrit 33.3 % (39.0-51.0) 33.4 % (39.0-51.0) Mean Corpuscular Volume 95.2 FL (80.0-100.0) 94.7 FL (80.0-100.0) Mean Corpuscular Hemoglobin 30.8 PG (27.0-34.0) 31.0 PG (27.0-34.0) Mean Corpuscular Hemoglobin Concent 32.3 % (32.0-36.0) 32.7 % (32.0-36.0) Red Cell Distribution Width 14.2 % (11.6-17.2) 14.0 % (11.6-17.2) Platelet Count 107 TH/MM3 (150-450) 114 TH/MM3 (150-450) Mean Platelet Volume 9.3 FL (7.0-11.0) 9.5 FL (7.0-11.0) Neutrophils (%) (Auto) 86.9 % (16.0-70.0) 89.1 % (16.0-70.0) Lymphocytes (%) (Auto) 6.4 % (9.0-44.0) 6.0 % (9.0-44.0) Monocytes (%) (Auto) 5.3 % (0.0-8.0) 4.1 % (0.0-8.0) Eosinophils (%) (Auto) 0.8 % (0.0-4.0) 0.6 % (0.0-4.0) Basophils (%) (Auto) 0.6 % (0.0-2.0) 0.2 % (0.0-2.0) Neutrophils # (Auto) 25.4 TH/MM3 (1.8-7.7) 29.2 TH/MM3 (1.8-7.7) Lymphocytes # (Auto) 1.9 TH/MM3 (1.0-4.8) 2.0 TH/MM3 (1.0-4.8) Monocytes # (Auto) 1.5 TH/MM3 (0-0.9) 1.3 TH/MM3 (0-0.9) Eosinophils # (Auto) 0.2 TH/MM3 (0-0.4) 0.2 TH/MM3 (0-0.4) Basophils # (Auto) 0.2 TH/MM3 (0-0.2) 0.1 TH/MM3 (0-0.2) CBC Comment AUTO DIFF AUTO DIFF Differential Total Cells Counted 100 100 Neutrophils % (Manual) 70 % (16-70) 92 % (16-70) Band Neutrophils % 22 % (0-6) 3 % (0-6) Lymphocytes % 3 % (9-44) 1 % (9-44) Monocytes % 3 % (0-8) 4 % (0-8) Eosinophils % 2 % (0-4) Neutrophils # (Manual) 26.9 TH/MM3 (1.8-7.7) 31.2 TH/MM3 (1.8-7.7) Differential Comment FINAL DIFF MANUAL FINAL DIFF MANUAL Toxic Granulation 1+ (NORMAL) Toxic Vacuolation PRESENT (NONE SEEN) Platelet Estimate LOW (NORMAL) LOW (NORMAL) Platelet Morphology Comment NORMAL (NORMAL) NORMAL (NORMAL) Ovalocytes 1+ (NORMAL) Acanthocytes OCC (NORMAL) Blood Urea Nitrogen 83 MG/DL (7-18) 77 MG/DL (7-18) Creatinine 2.49 MG/DL (0.60-1.30) 1.99 MG/DL (0.60-1.30) Random Glucose 135 MG/DL (74-106) 101 MG/DL (74-106) Calcium Level 8.2 MG/DL (8.5-10.1) 8.6 MG/DL (8.5-10.1) Sodium Level 139 MEQ/L (136-145) 142 MEQ/L (136-145) Potassium Level 3.8 MEQ/L (3.5-5.1) 3.8 MEQ/L (3.5-5.1) Chloride Level 111 MEQ/L (98-107) 112 MEQ/L (98-107) Carbon Dioxide Level 19.9 MEQ/L (21.0-32.0) 22.0 MEQ/L (21.0-32.0) Anion Gap 8 MEQ/L (5-15) 8 MEQ/L (5-15) Estimat Glomerular Filtration Rate 25 ML/MIN (>89) 32 ML/MIN (>89) Red Cell Morphology Comment NORMAL (NORMAL) Magnesium Level 2.0 MG/DL (1.5-2.5) Result Diagram: 06/21/17 0648 06/21/17 0648 Microbiology Microbiology Date/Time Source Procedure Growth Status 06/20/17 12:40 Blood Peripheral Aerobic Blood Culture - Preliminary NO GROWTH IN 2 DAYS Resulted 06/20/17 12:40 Blood Peripheral Anaerobic Blood Culture - Preliminary NO GROWTH IN 2 DAYS Resulted 06/20/17 12:30 Blood Peripheral Aerobic Blood Culture - Preliminary NO GROWTH IN 2 DAYS Resulted 06/20/17 12:30 Blood Peripheral Anaerobic Blood Culture - Preliminary NO GROWTH IN 2 DAYS Resulted 06/21/17 16:52 Stool Stool Stool Occult Blood (SLIM) - Final HEMOCCULT POSITIVE Complete Patient/Family Conference Issues Discussed: * Palliative care role, purpose, approach * Additional medical, psychosocial, and spiritual history * Patients general health, functional status, and cognitive changes in the months leading up to the current hospitalization * Patient/family understanding of the current medical problems * Patient/family understanding of prognosis * Patients goals of care as best understood from advance directives and/or conversations and/or values * Current medical treatment options and benefits/burdens of those options * Likely scenarios comparing ongoing aggressive care with a transition to comfort measures only * Questions answered to the best of my ability * Palliative care contact information provided Assessment and Plan Disease Oriented Problem List: (1) Acute renal failure (2) Colitis (3) Dementia (4) HTN (hypertension) (5) Failure to thrive in adult (6) C. difficile colitis (7) Bloody diarrhea (8) Sepsis Symptom Scale: (1) Debility (2) Decrease in appetite (3) Confusion Pertinent Non-Medical Issues Psychosocial:Patient is a poor historian. He states he is originally from [place] but was unable to provide any other information. Further information pending conversation with patient's family. Spiritual: None Legal: Per [place] statutes, in the absence of written advanced directives healthcare proxy decision making would fall to the patient's (Lorie Key). Ethical issues impacting care: No known ethical issues impacting care at this time. . Important Contacts Lorie Key, spouse: [phone] . Prognosis Patient is an 86-year-old male who has been hospitalized 2 times in the past month with recurrent sepsis and C. difficile colitis. During that time the patient has had a significant decline in his functional status as evidenced by his now complete dependence for all the ADLs and he was previously independent. Patient is at risk for ongoing complications secondary to his advanced age, decreased nutritional intake, recurrent infections requiring hospitalizations and decreasing functional status. Code Status: Full Code Plan * FULL CODE * Decision-making: Patient currently has limited insight and judgment in relation to his medical conditions, given his baseline dementia it is unlikely he will regain this capacity. Her [place] statutes, in the absence of written advanced directives healthcare proxy decision making would fall to the patient' s (Lorie Key). * No completed documented care wishes are available at this time, however the patient's family has indicated he has completed a living will. They will bring in a copy at their next visit. * Goals will remain aggressive pending conversation with patient's family. * Attempted to contact patient's family via telephone. A message was left on dianboom with palliative care contact information; awaiting return phone call. * Discussed with bedside nurse. * Symptom management-decreased appetite: Patient, is a frail, cachectic male who has experienced an acute decline in recent months. Albumin is low at 2; pre- albumin of 9. Speech therapy has been following the patient who is on a mechanically soft diet with thin liquids. Dietary has been consulted for recommendations. * Symptom management-confusion: Patient is oriented to self only. Speech is nonsensical at time. He is on Aricept at home which is recommended for mild to moderate dementia. Will discuss further with family in upcoming days before making any further recommendations. * Symptom management-debility: Per review of notes, patient's states the patient was relatively independent prior to being hospitalized in May,. He states he had a cane but rarely used it to assist with ambulation. Since being hospitalized in 05/2017 with sepsis and C. difficile, the patient has had an acute decline. He is currently dependent for all ADLs and requires assistance with feeding. * Palliative care will continue to follow this patient throughout his hospitalization to establish trust, assist with symptom management and clarification of medical treatment goals. Thank you for the opportunity to participate in the care of Mr. Key. Attestation To help prompt me to consider important information that might be impacting today's encounter and assessment, information from prior notes written by myself or my colleagues may have been "brought forward" into today's note. My signature on this note, however, is an attestation that I personally performed the exam, history, and/or decision-making noted today, and, unless otherwise indicated, the interactions with patient, family, and staff as well as the review of records all occurred today. I also attest that the listed assessment and stated plan reflect my best clinical judgment today based on the combination of historical information, prior notes, and today's exam/ interactions. When time spent is documented, it refers only to time spent today by the signer, or if indicated, combined time spent today by collaborating physician/nurse practitioner. . Cate Johnson Jun 22, 2017 17:22
[2017-06-22] MEDS: DONEPEZIL HCL 5 MG TAB PO SCH (21:30)
[2017-06-23] VITALS (25 sets, daily range): BP systolic 108–138; BP diastolic 45–66; PULSE 56–102; RESP 17–18; TEMP 96.4–98.2; O2SAT 96–98
[2017-06-23] MEDS: FREE WATER G-TUBE SCH ×6 (05:18→23:38)
[2017-06-23] MEDS: SODIUM CHLORIDE 0.9% FLUSH 10 ML FLUSH IV FLUSH SCH ×2 (09:00→20:16)
[2017-06-23 09:35] LABS: AUTOMATED NEUTROPHIL # 25.3 TH/MM3 (1.8-7.7); BASOPHIL # 0.1 TH/MM3 (0-0.2); BASOPHIL % 0.2 % (0.0-2.0); EOSINOPHIL # 0.1 TH/MM3 (0-0.4); EOSINOPHIL % 0.5 % (0.0-4.0); HEMATOCRIT 27.3 % (39.0-51.0); LYMPH % 5.3 % (9.0-44.0); LYMPHOCYTE # 1.5 TH/MM3 (1.0-4.8); MEAN CELL VOLUME 93.6 FL (80.0-100.0); MEAN CORPUSCULAR HEMOGLOBIN 31.6 PG (27.0-34.0); MEAN CORPUSCULAR HGB CONC 33.7 % (32.0-36.0); MONO % 3.5 % (0.0-8.0); NEUT % 90.5 % (16.0-70.0); PLATELET COUNT 143 TH/MM3 (150-450); RED BLOOD COUNT 2.92 MIL/MM3 (4.50-5.90); RED CELL DISTRIBUTION WIDTH 13.9 % (11.6-17.2)
[2017-06-23 09:45] LABS: HEMO FLAGS AUTO DIFF
[2017-06-23 09:56] LABS: ALKALINE PHOSPHATASE 87 U/L (45-117); ALT (GPT) 20 U/L (12-78); ANION GAP 9 MEQ/L (5-15); AST (GOT) 24 U/L (15-37); BICARBONATE 20.6 MEQ/L (21.0-32.0); BLOOD UREA NITROGEN 56 MG/DL (7-18); CHLORIDE 113 MEQ/L (98-107); GLOMERULAR FILTRATION RATE 49 ML/MIN (>89); SODIUM (NA) 143 MEQ/L (136-145); TOTAL BILIRUBIN ADULT 0.5 MG/DL (0.2-1.0)
--- NOTE | 2017-06-23 10:09 | HHI.PR ---
Subjective Remarks f/u; c-diff colitis in no acute distress. denies abdominal pain. remains afebrile. Objective Vitals Vital Signs Date Time Temp Pulse Resp B/P (MAP) Pulse Ox O2 Delivery O2 Flow Rate FiO2 06/23/17 07:30 97.8 65 18 128/66 (86) 96 06/23/17 05:00 74 06/23/17 04:00 74 06/23/17 04:00 98.2 69 17 138/66 (90) 98 06/23/17 03:00 72 06/23/17 02:00 82 06/23/17 01:00 86 06/23/17 00:00 70 06/23/17 00:00 98.2 69 17 135/62 (86) 98 06/22/17 23:00 72 06/22/17 22:00 82 06/22/17 21:00 82 06/22/17 20:00 78 06/22/17 19:25 98.0 69 17 137/67 (90) 98 06/22/17 19:00 86 06/22/17 18:06 86 06/22/17 17:00 84 06/22/17 16:00 84 06/22/17 15:51 98.2 69 17 144/73 (96) 98 06/22/17 15:00 79 06/22/17 14:00 80 06/22/17 13:00 104 06/22/17 12:00 98.2 83 16 127/65 (85) 100 06/22/17 12:00 84 06/22/17 11:00 79 I/O 06/22/17 06/22/17 06/22/17 06/23/17 06/23/17 06/23/17 07:00 15:00 23:00 07:00 15:00 23:00 Intake Total 1220 ml 1000 ml 450 ml 750 ml Output Total 850 ml 1075 ml 800 ml Balance 370 ml 1000 ml -625 ml -50 ml Intake Oral 220 ml 450 ml 750 ml IV Total 1000 ml 1000 ml Output Urine Total 850 ml 1075 ml 800 ml # Bowel Movements 1 1 2 Result Diagram: 06/23/17 0834 06/23/17 0834 Imaging Last Impressions Renal Ultrasound 06/16/17 0000 Signed Impressions: Service Date/Time: Wednesday, June 16, 2017 20:41 - CONCLUSION: No acute disease. Suhas Terrazas MD Objective Remarks GENERAL: This is a well-nourished, well-developed patient, in no apparent distress. CARDIOVASCULAR: Regular rate and regular rhythm without murmurs, gallops, or rubs. RESPIRATORY: Clear to auscultation. Breath sounds equal bilaterally. No wheezes , rales, or rhonchi. GASTROINTESTINAL: Abdomen soft, non-tender, nondistended. Normal, active bowel sounds MUSCULOSKELETAL: Extremities without clubbing, cyanosis, or edema. NEURO: oriented to person and partly to place. Medications and IVs Inpatient Medications Amlodipine Besylate (Norvasc) 10 mg DAILY PO Last administered on 06/21/17 10 :02; Start 06/17/17 at 09:00 Bisacodyl (Dulcolax Supp) 10 mg DAILY PRN RECTAL SEVERE CONSITIPATION; Start 06/16/17 at 16:00; Status Future Hold Cholecalciferol (Vitamin D3) 2,000 units DAILY PO Last administered on 10:02; Start 06/18/17 at 09:00 Donepezil HCl (Aricept) 10 mg HS PO Last administered on 06/22/17 21:30; Start 06/16/17 at 21:00 Enoxaparin Sodium (Lovenox Inj) 30 mg Q24H SQ Last administered on 06/20/17 17:16; Start 06/16/17 at 17:00 Lactobacillus Acidophilus (Lactinex) 1 tab TID PO Last administered on 17:24; Start 06/16/17 at 18:00 Lactulose (Lactulose Liq) 30 ml DAILY PRN PO SEVERE CONSITIPATION; Start at 16:00 Lisinopril (Prinivil) 10 mg DAILY PO ; Start 06/17/17 at 09:00; Stop 06/17/17 at 09:00; Status DC Magnesium Hydroxide (Milk Of Magnesia Liq) 30 ml Q12H PRN PO Mild constipation ; Start 06/16/17 at 16:00; Status Future Hold Metoprolol Tartrate (Lopressor) 25 mg DAILY PO Last administered on 06/21/17 10:02; Start 06/17/17 at 09:00 Metronidazole (Flagyl) 500 mg Q8H PO Last administered on 06/23/17 00:00; Start 06/22/17 at 16:00 Naloxone HCl (Narcan Inj) 0.4 mg UNSCH PRN IV PUSH SEE LABEL COMMENTS; Start 06/16/17 at 16:00 Ondansetron HCl (Zofran Inj) 4 mg Q6H PRN IVP NAUSEA OR VOMITING; Start at 16:00 Pneumococcal Polyvalent Vaccine (Pneumovax-23 Inj) 25 mcg ONCE ONCE IM Last administered on 06/17/17 10:45; Start 06/17/17 at 09:00; Stop 06/17/17 at 09:01 ; Status DC Potassium Bicarbonate (Effer-K Eff) 50 meq ONCE ONCE PO Last administered on 06/19/17 12:01; Start 06/19/17 at 09:30; Stop 06/19/17 at 09:31; Status DC Prednisone (Deltasone) 10 mg BID PO Last administered on 06/22/17 15:48; Start 06/22/17 at 13:45; Stop 06/22/17 at 20:15; Status DC Senna/Docusate Sodium (Brii-Colace) 1 tab BID PO ; Start 06/16/17 at 21:00; Status Future Hold Sennosides (Senokot) 17.2 mg Q12H PRN PO Moderate constipation; Start 06/16/17 at 16:00; Status Future Hold Sodium Chloride 1,000 ml @ 999 mls/hr BOLUS ONCE IV Last administered on 06/18 15:00; Start 06/18/17 at 15:00; Stop 06/18/17 at 16:00; Status DC Sodium Chloride (NS Flush) 2 ml BID IV FLUSH Last administered on 06/20/17 20 :11; Start 06/16/17 at 21:00 Temazepam (Restoril) 15 mg HS PRN PO INSOMNIA; Start 06/16/17 at 16:00 Vancomycin HCl (VANCOMYCIN for oral use only) 250 mg QID PO Last administered on 06/22/17 21:30; Start 06/16/17 at 18:00 Water (Free Water) 200 ml Q6HR G-TUBE Last administered on 06/23/17 05:18; Start 06/17/17 at 08:00 A/P Assessment and Plan A/P Renal failure. Kidney function is improving monitor closely Vit D deficiency . Appears ZOLTAN related to volume depletion in setting of dehydration from diarrhea. Recent increase in ACEI likely also contributing. continue IV fluid-gentle hydration. renal sonogram with no acute abnormality. Hold ACEI Consult nephrology, appreciate recommendations continue with vitamin D supplement. Medications should be adjusted for the patient's renal dysfunction. Avoid nephrotoxic agents such as iodinated contrast dyes and NSAIDs. Avoid gadolinium. Sepsis with C. difficile colitis bacteremia with klebsiella leukocytosis he was previously treated with PO vanco and finished course of antibiotic. evaluated by ID; Continue vancomycin and Falgyl. no need to treat the klebsiella bacteremia at this time -since the repeated blood cultures are negative.( d/w ). Repeat stool positive for Cdiff occult GI bleed- monitor H/H- GI consult appreciated; no plan for endoscopy at this time. Failure to thrive in adult- swallow evaluation . Consulted home care attendant. Severe protein calorie malnutrition. Frail cachectic weak handgrip, low albumin at 2,, prealbumin of 9. Consult home care attendant. Patient with cdiff colitis also Physical deconditioning Consult PT HTN (hypertension) Hold ACEI Continue on Amlodipine and Metoprolol Dementia Continue home meds DVT ppx SCD/TEDS- held Lovenox due to occult GI bleed. palliative care consult appreciated. Discharge Planning not ready for discharge yet. Adi Win MD Jun 23, 2017 10:09
[2017-06-23 10:26] LABS: BANDS 12 % (0-6); NEUTROPHIL # MANUAL DIFF 27.2 TH/MM3 (1.8-7.7); POLYS (SEG NEUTROPHILS) 85 % (16-70); WBC DIFF SAMPLE 100
[2017-06-23 10:27] LABS: ACANTHOCYTES OCC (NORMAL); OVALOCYTES 1+ (NORMAL); PLATELET ESTIMATE SMEAR LOW (NORMAL); PLATELET MORPHOLOGY NORMAL (NORMAL); TOXIC GRANULATION 2+ (NORMAL)
[2017-06-23 10:28] LABS: SCAN/DIFF FINAL DIFF MANUAL
[2017-06-23] MEDS: LACTOBACILLUS ACIDOPHILUS TAB PO SCH ×3 (10:31→18:28)
[2017-06-23] MEDS: CHOLECALCIFEROL (VIT D3) 1000 UNIT TAB PO SCH (10:32)
[2017-06-23] MEDS: METOPROLOL TARTRATE 25 MG TAB PO SCH (10:32)
[2017-06-23] MEDS: metroNIDAZOLE 500 MG TAB PO SCH ×3 (10:32→18:27)
[2017-06-23] MEDS: VANCOMYCIN 500 MG VIAL (FOR ORAL USE ONLY) PO SCH ×4 (10:33→20:16)
--- NOTE | 2017-06-23 14:23 | HHI.HCPN ---
Reason for visit a. To assist with evaluation and management of symptoms including: decreased appetite, debility, confusion b. To assist medical decision maker(s) with: better understanding of current medical conditions; weighing benefits/burdens of medical treatment options; making medical treatment decisions. . Subjective/Interval History Mr. 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 Follow-up visit for symptom management and clarification of medical treatment goals. Patient seen and assessed in room 245. Also present patient's (Lorie) and daughter (Melvina). Patient remains confused, oriented to person only. Follows simple commands. He has a baseline history of dementia and is on Aricept at home. Patient denies pain or dyspnea when asked he does not appear to be in acute distress. Afebrile. 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 Patient was recently treated for C. difficile in 2016, and the patient's reports he completed the recommended course of antibiotics. Initial blood culture growing Klebsiella pneumoniae. Follow-up culture remains negative to date. Patient is on Flagyl and Vancomycin. Infectious disease continues to follow the patient, recommending the patient be treated with a taper dose of vancomycin over a 6 week. Gastroenterology was consulted secondary to melena. Hemoccult positive stool. H/ H today (06/23/2017) at 19.2/27.3 (H/H previously 10.9/33.4 on 06/21/2017). Possible colonoscopy was recommended when patient is stable, however the family is uncertain if they would move forward with that procedure. Patient's appetite has decreased. He is a frail, cachectic male who has experienced an acute decline in recent months. Albumin is low at 2; pre-albumin of 9. Speech therapy has been following the patient who is on a mechanically soft diet with thin liquids. Patient is debilitated with generalized weakness and lethargy, refusing PT on some days. Patient will require SNF placement for rehabilitation at discharge if goals remain aggressive. The patient's is unable to care for him at home. Family is also considering transitioning to comfort focused care, hospice consult pending. . Advance Directives Living Will: Copy in medical record Advance Directive Specifics Date completed: 08/02/2006 . Health Care Surrogate(s): Patient's (Lorie Key is designated as the healthcare surrogate decision maker. His son (Man Key) is the alternate health care surrogate. . Documented care wishes: Living will was completed on 08/02/2016 and is accessible in EMR as well as the patient's paper chart. . Significant change in goals: CODE STATUS changed to NO CODE-DNR/DNI . Objective Vital Signs Date Time Temp Pulse Resp B/P (MAP) Pulse Ox O2 Delivery O2 Flow Rate FiO2 06/23/17 07:30 97.8 65 18 128/66 (86) 96 06/23/17 05:00 74 06/23/17 04:00 74 06/23/17 04:00 98.2 69 17 138/66 (90) 98 06/23/17 03:00 72 06/23/17 02:00 82 06/23/17 01:00 86 06/23/17 00:00 70 06/23/17 00:00 98.2 69 17 135/62 (86) 98 06/22/17 23:00 72 06/22/17 22:00 82 06/22/17 21:00 82 06/22/17 20:00 78 06/22/17 19:25 98.0 69 17 137/67 (90) 98 06/22/17 19:00 86 06/22/17 18:06 86 06/22/17 17:00 84 06/22/17 16:00 84 06/22/17 15:51 98.2 69 17 144/73 (96) 98 06/22/17 15:00 79 Intake & Output 06/23/17 06/23/17 07:00 19:00 Intake Total 750 ml Output Total 800 ml Balance -50 ml Intake Oral 750 ml Output Urine Total 800 ml # Bowel Movements 2 Physical Exam CONSTITUTIONAL/GENERAL: This is an adequately nourished patient, in no apparent distress. TUBES/LINES/DRAINS: PIV, Lowry SKIN: No jaundice, rashes, or lesions. Ecchymoses on upper extremities. No wounds seen anteriorly. Skin temperature appropriate. Not diaphoretic. HEAD: Atraumatic. Normocephalic. EYES: Pupils equal and round and reactive. Extraocular motions intact. No scleral icterus. No injection or drainage. Fundi not examined. ENT: Hearing grossly normal. Nose without bleeding or purulent drainage. NECK: Trachea midline. Supple, nontender. CARDIOVASCULAR: Regular rate and rhythm without murmurs, gallops, or rubs. No JVD. Peripheral pulses symmetric. RESPIRATORY/CHEST: Symmetric, unlabored respirations. Clear to auscultation. Breath sounds equal bilaterally. No wheezes, rales, or rhonchi. GASTROINTESTINAL: Abdomen soft, non-tender, nondistended. No guarding. Bowel sounds present. GENITOURINARY: Without palpable bladder distension. Lowry catheter in place. MUSCULOSKELETAL: Extremities without clubbing, cyanosis, or edema. No mottling or clubbing. LYMPHATICS: No palpable cervical or supraclavicular adenopathy. NEUROLOGICAL: Confused. Oriented to person only. Follows some simple commands PSYCHIATRIC: No obvious anxiety/depression. No apparent hallucinations or other psychotic thought process. . Diagnostic Tests Laboratory Laboratory Tests Test 06/21/17 06:48 06/23/17 08:34 White Blood Count 32.8 TH/MM3 (4.0-11.0) 28.0 TH/MM3 (4.0-11.0) Red Blood Count 3.53 MIL/MM3 (4.50-5.90) 2.92 MIL/MM3 (4.50-5.90) Hemoglobin 10.9 GM/DL (13.0-17.0) 9.2 GM/DL (13.0-17.0) Hematocrit 33.4 % (39.0-51.0) 27.3 % (39.0-51.0) Mean Corpuscular Volume 94.7 FL (80.0-100.0) 93.6 FL (80.0-100.0) Mean Corpuscular Hemoglobin 31.0 PG (27.0-34.0) 31.6 PG (27.0-34.0) Mean Corpuscular Hemoglobin Concent 32.7 % (32.0-36.0) 33.7 % (32.0-36.0) Red Cell Distribution Width 14.0 % (11.6-17.2) 13.9 % (11.6-17.2) Platelet Count 114 TH/MM3 (150-450) 143 TH/MM3 (150-450) Mean Platelet Volume 9.5 FL (7.0-11.0) 9.3 FL (7.0-11.0) Neutrophils (%) (Auto) 89.1 % (16.0-70.0) 90.5 % (16.0-70.0) Lymphocytes (%) (Auto) 6.0 % (9.0-44.0) 5.3 % (9.0-44.0) Monocytes (%) (Auto) 4.1 % (0.0-8.0) 3.5 % (0.0-8.0) Eosinophils (%) (Auto) 0.6 % (0.0-4.0) 0.5 % (0.0-4.0) Basophils (%) (Auto) 0.2 % (0.0-2.0) 0.2 % (0.0-2.0) Neutrophils # (Auto) 29.2 TH/MM3 (1.8-7.7) 25.3 TH/MM3 (1.8-7.7) Lymphocytes # (Auto) 2.0 TH/MM3 (1.0-4.8) 1.5 TH/MM3 (1.0-4.8) Monocytes # (Auto) 1.3 TH/MM3 (0-0.9) 1.0 TH/MM3 (0-0.9) Eosinophils # (Auto) 0.2 TH/MM3 (0-0.4) 0.1 TH/MM3 (0-0.4) Basophils # (Auto) 0.1 TH/MM3 (0-0.2) 0.1 TH/MM3 (0-0.2) CBC Comment AUTO DIFF AUTO DIFF Differential Total Cells Counted 100 100 Neutrophils % (Manual) 92 % (16-70) 85 % (16-70) Band Neutrophils % 3 % (0-6) 12 % (0-6) Lymphocytes % 1 % (9-44) 2 % (9-44) Monocytes % 4 % (0-8) 1 % (0-8) Neutrophils # (Manual) 31.2 TH/MM3 (1.8-7.7) 27.2 TH/MM3 (1.8-7.7) Differential Comment FINAL DIFF MANUAL FINAL DIFF MANUAL Platelet Estimate LOW (NORMAL) LOW (NORMAL) Platelet Morphology Comment NORMAL (NORMAL) NORMAL (NORMAL) Red Cell Morphology Comment NORMAL (NORMAL) Blood Urea Nitrogen 77 MG/DL (7-18) 56 MG/DL (7-18) Creatinine 1.99 MG/DL (0.60-1.30) 1.37 MG/DL (0.60-1.30) Random Glucose 101 MG/DL (74-106) 98 MG/DL (74-106) Calcium Level 8.6 MG/DL (8.5-10.1) 9.0 MG/DL (8.5-10.1) Magnesium Level 2.0 MG/DL (1.5-2.5) Sodium Level 142 MEQ/L (136-145) 143 MEQ/L (136-145) Potassium Level 3.8 MEQ/L (3.5-5.1) 4.0 MEQ/L (3.5-5.1) Chloride Level 112 MEQ/L (98-107) 113 MEQ/L (98-107) Carbon Dioxide Level 22.0 MEQ/L (21.0-32.0) 20.6 MEQ/L (21.0-32.0) Anion Gap 8 MEQ/L (5-15) 9 MEQ/L (5-15) Estimat Glomerular Filtration Rate 32 ML/MIN (>89) 49 ML/MIN (>89) Toxic Granulation 2+ (NORMAL) Ovalocytes 1+ (NORMAL) Acanthocytes OCC (NORMAL) Total Protein 4.6 GM/DL (6.4-8.2) Albumin 1.6 GM/DL (3.4-5.0) Alkaline Phosphatase 87 U/L (45-117) Aspartate Amino Transf (AST/SGOT) 24 U/L (15-37) Alanine Aminotransferase (ALT/SGPT) 20 U/L (12-78) Total Bilirubin 0.5 MG/DL (0.2-1.0) Result Diagram: 06/23/17 0834 06/23/17 0834 Microbiology Microbiology Date/Time Source Procedure Growth Status 06/22/17 21:30 Stool Stool Stool Occult Blood (SLIM) - Final HEMOCCULT POSITIVE Complete 06/21/17 16:52 Stool Stool Stool Occult Blood (SLIM) - Final HEMOCCULT POSITIVE Complete . Assessment and Plan Disease Oriented Problem List: (1) Acute renal failure (2) Colitis (3) Dementia (4) HTN (hypertension) (5) Failure to thrive in adult (6) C. difficile colitis (7) Bloody diarrhea (8) Sepsis Symptom Scale: (1) Debility (2) Decrease in appetite (3) Confusion Pertinent Non-Medical Issues Psychosocial:Patient is a poor historian. He states he is originally from [place] but was unable to provide any other information. Further information pending conversation with patient's family. Spiritual: None Legal: Per [place] statutes, in the absence of written advanced directives healthcare proxy decision making would fall to the patient's (Lorie Key). Ethical issues impacting care: No known ethical issues impacting care at this time. . Important Contacts Lorie Key, spouse: [phone] or cell [phone] Melvina Calderon, daughter: [phone] . Prognosis Patient is an 86-year-old male who has been hospitalized 2 times in the past month with recurrent sepsis and C. difficile colitis. During that time the patient has had a significant decline in his functional status as evidenced by his now complete dependence for all the ADLs and he was previously independent. Patient is at risk for ongoing complications secondary to his advanced age, decreased nutritional intake, recurrent infections requiring hospitalizations and decreasing functional status. Code Status: Full Code Plan * NO CODE-DNR/DNI * Decision-making: Patient currently has limited insight and judgment in relation to his medical conditions, given his baseline dementia it is unlikely he will regain this capacity. HCS designation form completed on 08/02/2016. Patient's (Lorie Key is designated as the healthcare surrogate decision maker. His son (Man Key) is the alternate health care surrogate. * Living will was completed on 08/02/2016 and is accessible in patient's EMR. He also placed and patient's paper chart. * Goals: Family goals remain aggressive to the point of cardiopulmonary resuscitation. The family is considering SNF placement for rehabilitation versus hospice services. * Palliative care met with the patient's and daughter to discuss patient's current clinical condition and clarify medical treatment goals. Patient's verbalizing concern over patient's recent decline. She does not believe the patient will do well and rehabilitation but does not feel she is able to care for him at home. The patient did complete a living will on 08/02/2016 providing the family with some guidance on what his healthcare wishes would be in various situations. The patient's family is considering transitioning to comfort focused care and would like to speak with someone from hospice. * Hospice consult pending. Spoke with, Neeta, and hospice intake and hospice admission nurse, Lauren. * Discussed patient with Dr. Gutierrez and dependency case manager. * Symptom management-decreased appetite: Patient, is a frail, cachectic male who has experienced an acute decline in recent months. Albumin is low at 2; pre- albumin of 9. Speech therapy has been following the patient who is on a mechanically soft diet with thin liquids. * Symptom management-confusion: Patient is oriented to self only. Speech is nonsensical at time. He is on Aricept at home which is recommended for mild to moderate dementia. Will discuss further with family in upcoming days before making any further recommendations. * Symptom management-debility: Per review of notes, patient's states the patient was relatively independent prior to being hospitalized in May,. He states he had a cane but rarely used it to assist with ambulation. Since being hospitalized in 05/2017 with sepsis and C. difficile, the patient has had an acute decline. He is currently dependent for all ADLs and requires assistance with feeding. * Palliative care will continue to follow this patient throughout his hospitalization to establish trust, assist with symptom management and clarification of medical treatment goals. Attestation To help prompt me to consider important information that might be impacting today's encounter and assessment, information from prior notes written by myself or my colleagues may have been "brought forward" into today's note. My signature on this note, however, is an attestation that I personally performed the exam, history, and/or decision-making noted today, and, unless otherwise indicated, the interactions with patient, family, and staff as well as the review of records all occurred today. I also attest that the listed assessment and stated plan reflect my best clinical judgment today based on the combination of historical information, prior notes, and today's exam/ interactions. When time spent is documented, it refers only to time spent today by the signer, or if indicated, combined time spent today by collaborating physician/nurse practitioner. . Cate Johnson Jun 23, 2017 14:23
--- NOTE | 2017-06-23 14:36 | HHI.IDPN ---
Note Infectious Disease Note Patient is comfortable. No distress. responds verbally. Afebrile. Still having loose stools. PAST MEDICAL HISTORY 1. Hypertension 2. Kidney stones 3. Appendectomy 4. Tonsillectomy 5. Dementia 6. Recent C-difficile colitis. ALLERGIES NO KNOWN DRUG ALLERGIES. ANTIBIOTICS: Vancomycin p.o. OBJ: Vital Signs Date Time Temp Pulse Resp B/P (MAP) Pulse Ox O2 Delivery O2 Flow Rate FiO2 06/23/17 07:30 97.8 65 18 128/66 (86) 96 06/23/17 05:00 74 06/23/17 04:00 74 06/23/17 04:00 98.2 69 17 138/66 (90) 98 06/23/17 03:00 72 06/23/17 02:00 82 06/23/17 01:00 86 06/23/17 00:00 70 06/23/17 00:00 98.2 69 17 135/62 (86) 98 06/22/17 23:00 72 06/22/17 22:00 82 06/22/17 21:00 82 06/22/17 20:00 78 06/22/17 19:25 98.0 69 17 137/67 (90) 98 06/22/17 19:00 86 06/22/17 18:06 86 06/22/17 17:00 84 06/22/17 16:00 84 06/22/17 15:51 98.2 69 17 144/73 (96) 98 06/22/17 15:00 79 Laboratory Tests Test 06/23/17 08:34 White Blood Count 28.0 TH/MM3 Red Blood Count 2.92 MIL/MM3 Hemoglobin 9.2 GM/DL Hematocrit 27.3 % Mean Corpuscular Volume 93.6 FL Mean Corpuscular Hemoglobin 31.6 PG Mean Corpuscular Hemoglobin Concent 33.7 % Red Cell Distribution Width 13.9 % Platelet Count 143 TH/MM3 Mean Platelet Volume 9.3 FL Neutrophils (%) (Auto) 90.5 % Lymphocytes (%) (Auto) 5.3 % Monocytes (%) (Auto) 3.5 % Eosinophils (%) (Auto) 0.5 % Basophils (%) (Auto) 0.2 % Neutrophils # (Auto) 25.3 TH/MM3 Lymphocytes # (Auto) 1.5 TH/MM3 Monocytes # (Auto) 1.0 TH/MM3 Eosinophils # (Auto) 0.1 TH/MM3 Basophils # (Auto) 0.1 TH/MM3 CBC Comment AUTO DIFF Differential Total Cells Counted 100 Neutrophils % (Manual) 85 % Band Neutrophils % 12 % Lymphocytes % 2 % Monocytes % 1 % Neutrophils # (Manual) 27.2 TH/MM3 Differential Comment FINAL DIFF MANUAL Toxic Granulation 2+ Platelet Estimate LOW Platelet Morphology Comment NORMAL Ovalocytes 1+ Acanthocytes OCC Laboratory Tests Test 06/23/17 08:34 Blood Urea Nitrogen 56 MG/DL Creatinine 1.37 MG/DL Random Glucose 98 MG/DL Total Protein 4.6 GM/DL Albumin 1.6 GM/DL Calcium Level 9.0 MG/DL Alkaline Phosphatase 87 U/L Aspartate Amino Transf (AST/SGOT) 24 U/L Alanine Aminotransferase (ALT/SGPT) 20 U/L Total Bilirubin 0.5 MG/DL Sodium Level 143 MEQ/L Potassium Level 4.0 MEQ/L Chloride Level 113 MEQ/L Carbon Dioxide Level 20.6 MEQ/L Anion Gap 9 MEQ/L Estimat Glomerular Filtration Rate 49 ML/MIN Microbiology Date/Time Source Procedure Growth Status 06/22/17 21:30 Stool Stool Stool Occult Blood (SLIM) - Final HEMOCCULT POSITIVE Complete 06/21/17 16:52 Stool Stool Stool Occult Blood (SLIM) - Final HEMOCCULT POSITIVE Complete PHYSICAL EXAMINATION GENERAL: No acute distress. Confused. HEENT: Head is atraumatic. Extraocular movements grossly intact. No icterus. Oropharynx - mucosa is moist. NECK: Supple without adenopathy. LUNGS: Clear breath sounds. HEART: Regular S1 and S2 without audible murmurs. ABDOMEN: Bowel sounds diminished. EXTREMITIES: No clubbing or cyanosis or edema. SKIN: No rash. NEUROLOGIC: No gross focal findings. PSYCH: Unable to fully assess. calm. IMPRESSION 1. C-difficile colitis. Second episode in this patient who was recently treated. 2. Leukocytosis secondary to C-difficile. 3. Acute renal failure. 4. One Blood culture on 06/16 had klebsiella and subsequent blood culture is negative. very likely contaminant. Patient does not appear septic. RECOMMENDATIONS 1. Continue PO vancomycin. 2. Monitor stool output and white blood cell count. 3. Because of the recurrence of the C diff, the patient should be treated with a taper of vancomycin over six weeks period. This can be given as a taper over the six weeks. Dontfraid,Jj F MD Jun 23, 2017 14:36
--- NOTE | 2017-06-23 16:27 | HHI.GIFU ---
Subjective Remarks Pt resting in bed, in no apparent distress. and daughter at bedside. Nurse reports pt is having black, tarry stools. (Haley Roy) Objective Vitals I&O Vital Signs Date Time Temp Pulse Resp B/P (MAP) Pulse Ox O2 Delivery O2 Flow Rate FiO2 06/23/17 12:00 96.8 67 18 108/56 (73) 96 06/23/17 07:30 97.8 65 18 128/66 (86) 96 06/23/17 05:00 74 06/23/17 04:00 74 06/23/17 04:00 98.2 69 17 138/66 (90) 98 06/23/17 03:00 72 06/23/17 02:00 82 06/23/17 01:00 86 06/23/17 00:00 70 06/23/17 00:00 98.2 69 17 135/62 (86) 98 06/22/17 23:00 72 06/22/17 22:00 82 06/22/17 21:00 82 06/22/17 20:00 78 06/22/17 19:25 98.0 69 17 137/67 (90) 98 06/22/17 19:00 86 06/22/17 18:06 86 06/22/17 17:00 84 I/O 06/22/17 06/22/17 06/22/17 06/23/17 06/23/17 06/23/17 07:00 15:00 23:00 07:00 15:00 23:00 Intake Total 1220 ml 1000 ml 450 ml 750 ml Output Total 850 ml 1075 ml 800 ml Balance 370 ml 1000 ml -625 ml -50 ml Intake Oral 220 ml 450 ml 750 ml IV Total 1000 ml 1000 ml Output Urine Total 850 ml 1075 ml 800 ml # Bowel Movements 1 1 2 Laboratory Laboratory Tests Test 06/23/17 08:34 White Blood Count 28.0 Red Blood Count 2.92 Hemoglobin 9.2 Hematocrit 27.3 Mean Corpuscular Volume 93.6 Mean Corpuscular Hemoglobin 31.6 Mean Corpuscular Hemoglobin Concent 33.7 Red Cell Distribution Width 13.9 Platelet Count 143 Mean Platelet Volume 9.3 Neutrophils (%) (Auto) 90.5 Lymphocytes (%) (Auto) 5.3 Monocytes (%) (Auto) 3.5 Eosinophils (%) (Auto) 0.5 Basophils (%) (Auto) 0.2 Neutrophils # (Auto) 25.3 Lymphocytes # (Auto) 1.5 Monocytes # (Auto) 1.0 Eosinophils # (Auto) 0.1 Basophils # (Auto) 0.1 CBC Comment AUTO DIFF Differential Total Cells Counted 100 Neutrophils % (Manual) 85 Band Neutrophils % 12 Lymphocytes % 2 Monocytes % 1 Neutrophils # (Manual) 27.2 Differential Comment FINAL DIFF MANUAL Toxic Granulation 2+ Platelet Estimate LOW Platelet Morphology Comment NORMAL Ovalocytes 1+ Acanthocytes OCC Blood Urea Nitrogen 56 Creatinine 1.37 Random Glucose 98 Total Protein 4.6 Albumin 1.6 Calcium Level 9.0 Alkaline Phosphatase 87 Aspartate Amino Transf (AST/SGOT) 24 Alanine Aminotransferase (ALT/SGPT) 20 Total Bilirubin 0.5 Sodium Level 143 Potassium Level 4.0 Chloride Level 113 Carbon Dioxide Level 20.6 Anion Gap 9 Estimat Glomerular Filtration Rate 49 Date/Time Source Procedure Growth Status 06/20/17 12:40 Blood Peripheral Aerobic Blood Culture - Preliminary NO GROWTH IN 3 DAYS Resulted 06/20/17 12:40 Blood Peripheral Anaerobic Blood Culture - Preliminary NO GROWTH IN 3 DAYS Resulted 06/22/17 21:30 Stool Stool Stool Occult Blood (SLIM) - Final HEMOCCULT POSITIVE Complete 06/16/17 14:57 Urine Catheterized Urine Urine Culture - Final NO GROWTH IN 48 HOURS. Complete Imaging Last Impressions Renal Ultrasound 06/16/17 0000 Signed Impressions: Service Date/Time: Friday, June 16, 2017 20:41 - CONCLUSION: No acute disease. Suhas Terrazas MD Physical Exam HEENT: Normocephalic; atraumatic CHEST: CTA CARDIAC: RRR ABDOMEN: Soft, nondistended, nontender; no hepatosplenomegaly; bowel sounds active x 4. EXTREMITIES: No clubbing, cyanosis, or edema. SKIN: Normal; no rash; no jaundice. ASSET LIABILITY ANALYST: Confused (KeitheHaley [employer] RESEARCH TECHNICIAN) Assessment and Plan Plan Assessment: C diff colitis- (+) C. diff toxin- negative epid. ID following. Receiving oral Vanco and Flagyl- Reports of continued diarrhea. Abdominal exam benign. Laxatives discontinued at this time. Probiotic. Anemia- normocytic- ?GIB- Nurse reports black, tarry stools. Hemoglobin trending downward. Current H/H 9.2/27.3. Would recommend an EGD to be done tomorrow. Pts and daughter are unsure if they want to proceed with this procedure at this time and would like to discuss this option tomorrow after speaking to the patients son. Pt has been seen and evaluated by palliative care. Plan: - Recommend EGD, pts and daughter would like to think about proceeding with this procedure overnight and discuss decision tomorrow - Continue Vanco - Continue Flagyl - Monitor H/H - Monitor for GI bleeding - Transfuse as needed - Supportive care - Further recommendations to follow Pt has been seen and examined by myself and Dr. Joy and this note is written on his behalf (Haley Roy) Physician Comments Patient seen and examined Agree with above Continue with current supportive care Monitor labs and transfuse as needed Plan for EGD tomorrow if patient and family are agreeable Recommend PPI and avoid NSAIDs and anticoagulation (Tommie Joy MD) Haley Roy Jun 23, 2017 16:27 Tommie Joy MD Jun 23, 2017 20:24
[2017-06-23] MEDS: SODIUM CHLOR 0.45% 1000 ML INJ 1,000 ML IV SCH (18:00)
[2017-06-23] MEDS: DONEPEZIL HCL 5 MG TAB PO SCH (20:16)
[2017-06-23] MEDS: PANTOPRAZOLE SOD 40 MG DELAYED RELEASE TAB PO SCH (21:41)
[2017-06-24] VITALS (31 sets, daily range): BP systolic 116–142; BP diastolic 56–74; PULSE 68–98; RESP 16–18; TEMP 95.6–98.2; O2SAT 94–100
[2017-06-24] MEDS: metroNIDAZOLE 500 MG TAB PO SCH ×4 (00:06→23:58)
[2017-06-24 06:18] LABS: AUTOMATED NEUTROPHIL # 21.8 TH/MM3 (1.8-7.7); BASOPHIL # 0.1 TH/MM3 (0-0.2); BASOPHIL % 0.3 % (0.0-2.0); EOSINOPHIL # 0.4 TH/MM3 (0-0.4); EOSINOPHIL % 1.8 % (0.0-4.0); LYMPH % 5.6 % (9.0-44.0); LYMPHOCYTE # 1.4 TH/MM3 (1.0-4.8); MEAN CELL VOLUME 93.8 FL (80.0-100.0); MEAN CORPUSCULAR HEMOGLOBIN 31.2 PG (27.0-34.0); MEAN CORPUSCULAR HGB CONC 33.3 % (32.0-36.0); MONO % 3.5 % (0.0-8.0); NEUT % 88.8 % (16.0-70.0); PLATELET COUNT 153 TH/MM3 (150-450); RED BLOOD COUNT 2.67 MIL/MM3 (4.50-5.90); RED CELL DISTRIBUTION WIDTH 13.7 % (11.6-17.2); WHITE BLOOD COUNT 24.5 TH/MM3 (4.0-11.0)
[2017-06-24 06:23] LABS: HEMO FLAGS AUTO DIFF
[2017-06-24 07:01] LABS: BICARBONATE 21.9 MEQ/L (21.0-32.0); POTASSIUM 3.8 MEQ/L (3.5-5.1)
[2017-06-24 07:19] LABS: BANDS 4 % (0-6); EOSINOPHILS 1 % (0-4); NEUTROPHIL # MANUAL DIFF 22.5 TH/MM3 (1.8-7.7); PLATELET ESTIMATE SMEAR NORMAL (NORMAL); PLATELET MORPHOLOGY NORMAL (NORMAL); POLYS (SEG NEUTROPHILS) 88 % (16-70); SCAN/DIFF FINAL DIFF MANUAL; WBC DIFF SAMPLE 100
[2017-06-24] MEDS: SODIUM CHLORIDE 0.9% FLUSH 10 ML FLUSH IV FLUSH SCH ×2 (10:21→20:17)
[2017-06-24] MEDS: CHOLECALCIFEROL (VIT D3) 1000 UNIT TAB PO SCH (10:22)
[2017-06-24] MEDS: METOPROLOL TARTRATE 25 MG TAB PO SCH (10:22)
[2017-06-24] MEDS: LACTOBACILLUS ACIDOPHILUS TAB PO SCH ×3 (10:22→18:27)
[2017-06-24] MEDS: PANTOPRAZOLE SOD 40 MG DELAYED RELEASE TAB PO SCH (10:22)
[2017-06-24] MEDS: SODIUM CHLOR 0.45% 1000 ML INJ 1,000 ML IV SCH ×2 (10:23→13:33)
[2017-06-24] MEDS: VANCOMYCIN 500 MG VIAL (FOR ORAL USE ONLY) PO SCH ×4 (10:23→20:17)
--- NOTE | 2017-06-24 10:31 | RADRPT ---
EXAM DATE/TIME: 06/24/2017 09:54 [facility] COMPARISON: CHEST SINGLE AP, May 17, 2017, 17:22. INDICATIONS : Cough MEDICAL HISTORY : Aneurysm, abdominal. Hypertension. Renal calculi. C.diff. Dementia SURGICAL HISTORY : Appendectomy. Tonsillectomy. Left femur repair. ENCOUNTER: Subsequent ACUITY: 4 - 6 days PAIN SCORE: Non-responsive. LOCATION: Bilateral chest FINDINGS: A single view of the chest demonstrates the lungs to be symmetrically aerated without evidence of mas s, infiltrate or effusion. The cardiomediastinal contours are unremarkable. Osseous structures are intact. CONCLUSION: No acute disease. Dontae Souza MD on June 24, 2017 at 10:29 Board Certified Radiologist. This report was verified electronically.
--- NOTE | 2017-06-24 12:45 | HHI.PR ---
Subjective Remarks Patient continues to have loose frequent stools. Confusion at baseline for him. Patient denies pain or shortness of breath. Review of systems is limited due to patient's dementia. Discussed in detail with patient's and daughter at bedside. They have elected to go with hospice when patient is discharged. They have elected to proceed with the endoscopy. Objective Vitals Vital Signs Date Time Temp Pulse Resp B/P (MAP) Pulse Ox O2 Delivery O2 Flow Rate FiO2 06/24/17 11:00 92 06/24/17 10:00 84 06/24/17 09:00 98 06/24/17 08:00 74 06/24/17 07:30 98.1 78 18 142/56 (84) 94 06/24/17 07:00 85 06/24/17 05:00 80 06/24/17 04:38 96.5 69 18 139/64 (89) 96 06/24/17 04:00 80 06/24/17 03:00 71 06/24/17 02:00 80 06/24/17 01:00 80 06/24/17 00:00 80 06/23/17 23:55 96.4 68 18 133/65 (87) 96 06/23/17 23:00 70 06/23/17 22:20 82 06/23/17 21:00 82 06/23/17 20:00 84 06/23/17 19:55 96.4 72 18 138/45 (76) 96 06/23/17 19:00 64 06/23/17 18:00 76 06/23/17 17:00 62 06/23/17 16:00 56 06/23/17 15:00 66 06/23/17 15:00 96.8 67 18 108/56 (73) 96 06/23/17 14:00 64 06/23/17 13:00 60 I/O 06/23/17 06/23/17 06/23/17 06/24/17 06/24/17 06/24/17 06:59 14:59 22:59 06:59 14:59 22:59 Intake Total 750 ml 600 ml 120 ml Output Total 800 ml 550 ml Balance -50 ml 600 ml -430 ml Intake Oral 750 ml 600 ml 120 ml Output Urine Total 800 ml 550 ml # Bowel Movements 2 2 Result Diagram: 06/24/17 0600 06/24/17 0609 Objective Remarks GENERAL: Chronically ill appearing elderly male patient. SKIN: Warm and dry. HEAD: Normocephalic. EYES: No scleral icterus. No injection or drainage. NECK: Supple, trachea midline. No JVD or lymphadenopathy. CARDIOVASCULAR: Regular rate and rhythm without murmurs, gallops, or rubs. RESPIRATORY: Breath sounds equal and clear to auscultation bilaterally. No accessory muscle use. GASTROINTESTINAL: Abdomen soft, non-tender, nondistended. EXTREMITIES: No cyanosis, or edema. NEUROLOGICAL: Awake, alert, and oriented to self only. Non-focal. Generalized weakness. A/P Assessment and Plan Sepsis with C. difficile colitis (recurrent) bacteremia with klebsiella leukocytosis he was previously treated with PO vanco and finished course of antibiotic, now repeat stool positive for Cdiff with significant diarrhea, leukocytosis evaluated by ID; Continue vancomycin and Flagyl. Per ID/dr. shukla no need to treat the klebsiella bacteremia at this time - since the repeated blood cultures are negative. leukocytosis persists Anemia of acute blood loss due to GI bleeding monitor H/H- GI consult appreciated; discussed with Dr. Hernandez, plan for endoscopy in the morning Hemoglobin 8.6 today slight downturn from 9 yesterday. Renal failure. Kidney function is cr 5-> Vit D deficiency . Appears ZOLTAN related to volume depletion in setting of dehydration from diarrhea. Recent increase in ACEI likely also contributing. continue IV fluid-gentle hydration. NS at 50 ml/hr renal sonogram with no acute abnormality. Hold ACEI nephrology ff, appreciate recommendations continue with vitamin D supplement. Avoid nephrotoxic agents such as iodinated contrast dyes and NSAIDs. Avoid gadolinium. remove katz catheter Failure to thrive in adult, Severe protein calorie malnutrition. - swallow evaluation recommends mechanical soft diet and thin liquids. Consulted tax agent who recommended to ensure 3 times a day. Frail cachectic weak handgrip , low albumin at 2,, prealbumin of 9. Continue mechanical soft diet with thin liquids. Add ensure 2 diet tomorrow. Physical deconditioning Cont PT HTN (hypertension) Hold ACEI Continue on Amlodipine and Metoprolol Dementia Continue home meds DVT ppx SCD/TEDS-no pharmacologic prophylaxis due to occult GI bleed. DNR status. palliative care consult appreciated. family has elected for hospice when patient stable for DC. Patient's cares for the patient alone at home , consider short stay at the hospice care facility. Otherwise he will probably require SNF due to lack of support at home. Elysia Moore MD Jun 24, 2017 12:45
[2017-06-24] MEDS: FREE WATER G-TUBE SCH ×3 (12:50→20:17)
--- NOTE | 2017-06-24 13:25 | HHI.GIFU ---
Subjective Remarks Pt resting in bed, awake, in no apparent distress. Family at bedside. They report he had a BM this morning, unsure of the color. Family talked over the decision for an EGD and report they are agreeable for pt to have procedure tomorrow. Pt has already eaten breakfast today. (Haley Roy) Objective Vitals I&O Vital Signs Date Time Temp Pulse Resp B/P (MAP) Pulse Ox O2 Delivery O2 Flow Rate FiO2 06/24/17 11:30 95.6 74 18 116/66 (83) 97 06/24/17 11:30 89 06/24/17 11:00 92 06/24/17 10:00 84 06/24/17 09:00 98 06/24/17 08:00 74 06/24/17 07:30 98.1 78 18 142/56 (84) 94 06/24/17 07:00 85 06/24/17 05:00 80 06/24/17 04:38 96.5 69 18 139/64 (89) 96 06/24/17 04:00 80 06/24/17 03:00 71 06/24/17 02:00 80 06/24/17 01:00 80 06/24/17 00:00 80 06/23/17 23:55 96.4 68 18 133/65 (87) 96 06/23/17 23:00 70 06/23/17 22:20 82 06/23/17 21:00 82 06/23/17 20:00 84 06/23/17 19:55 96.4 72 18 138/45 (76) 96 06/23/17 19:00 64 06/23/17 18:00 76 06/23/17 17:00 62 06/23/17 16:00 56 06/23/17 15:00 66 06/23/17 15:00 96.8 67 18 108/56 (73) 96 06/23/17 14:00 64 I/O 06/23/17 06/23/17 06/23/17 06/24/17 06/24/17 06/24/17 07:00 15:00 23:00 07:00 15:00 23:00 Intake Total 750 ml 600 ml 120 ml Output Total 800 ml 550 ml Balance -50 ml 600 ml -430 ml Intake Oral 750 ml 600 ml 120 ml Output Urine Total 800 ml 550 ml # Bowel Movements 2 2 Laboratory Laboratory Tests Test 06/24/17 06:00 06/24/17 06:09 White Blood Count 24.5 Red Blood Count 2.67 Hemoglobin 8.3 Hematocrit 25.0 Mean Corpuscular Volume 93.8 Mean Corpuscular Hemoglobin 31.2 Mean Corpuscular Hemoglobin Concent 33.3 Red Cell Distribution Width 13.7 Platelet Count 153 Mean Platelet Volume 8.5 Neutrophils (%) (Auto) 88.8 Lymphocytes (%) (Auto) 5.6 Monocytes (%) (Auto) 3.5 Eosinophils (%) (Auto) 1.8 Basophils (%) (Auto) 0.3 Neutrophils # (Auto) 21.8 Lymphocytes # (Auto) 1.4 Monocytes # (Auto) 0.9 Eosinophils # (Auto) 0.4 Basophils # (Auto) 0.1 CBC Comment AUTO DIFF Differential Total Cells Counted 100 Neutrophils % (Manual) 88 Band Neutrophils % 4 Lymphocytes % 7 Eosinophils % 1 Neutrophils # (Manual) 22.5 Differential Comment FINAL DIFF MANUAL Platelet Estimate NORMAL Platelet Morphology Comment NORMAL Red Cell Morphology Comment NORMAL Blood Urea Nitrogen 44 Creatinine 1.33 Random Glucose 98 Calcium Level 8.8 Sodium Level 144 Potassium Level 3.8 Chloride Level 115 Carbon Dioxide Level 21.9 Anion Gap 7 Estimat Glomerular Filtration Rate 51 Date/Time Source Procedure Growth Status 06/20/17 12:40 Blood Peripheral Aerobic Blood Culture - Preliminary NO GROWTH IN 4 DAYS Resulted 06/20/17 12:40 Blood Peripheral Anaerobic Blood Culture - Preliminary NO GROWTH IN 4 DAYS Resulted 06/22/17 21:30 Stool Stool Stool Occult Blood (SLIM) - Final HEMOCCULT POSITIVE Complete 06/16/17 14:57 Urine Catheterized Urine Urine Culture - Final NO GROWTH IN 48 HOURS. Complete Imaging Last Impressions Chest X-Ray 06/24/17 0000 Signed Impressions: Service Date/Time: June 09:54 - CONCLUSION: No acute disease. Dontae Souza MD Renal Ultrasound 06/16/17 0000 Signed Impressions: Service Date/Time: Friday, June 16, 2017 20:41 - CONCLUSION: No acute disease. Suhas Terrazas MD Physical Exam HEENT: Normocephalic; atraumatic CHEST: CTA CARDIAC: RRR ABDOMEN: Soft, nondistended, nontender; no hepatosplenomegaly; bowel sounds active x 4. EXTREMITIES: No clubbing, cyanosis, or edema. SKIN: Normal; no rash; no jaundice. 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 diff toxin- negative epid. ID following. Receiving oral Vanco and Flagyl- Reports of continued diarrhea. Abdominal exam benign. Laxatives discontinued at this time. Probiotic. Anemia- normocytic- ?GIB- Nurse reports black, tarry stools. Hemoglobin trending downward. Current H/H 8.3/25.0. EGD to be done tomorrow. Spoke with pts and daughter and they discussed pt proceeding with the EGD and they are agreeable. Pt has already eaten breakfast today. Will schedule for tomorrow. Plan: - EGD tomorrow - Obtain consents - NPO after MN - Continue Vanco - Continue Flagyl - Monitor H/H - Monitor for GI bleeding - Transfuse as needed - Supportive care - Further recommendations to follow Pt has been seen and examined by myself and Dr. Joy and this note is written on his behalf (Haley Roy) Physician Comments Patient seen and examined Agree with above Continue with current supportive care Monitor labs Plan for EGD tomorrow (Tommie Joy MD) Haley Roy Jun 24, 2017 13:25 Tommie Joy MD Jun 24, 2017 17:49
[2017-06-24] MEDS: DONEPEZIL HCL 5 MG TAB PO SCH (20:17)
[2017-06-25] VITALS (25 sets, daily range): BP systolic 108–132; BP diastolic 55–69; PULSE 54–82; RESP 18–19; TEMP 97.5–98; O2SAT 96–100
[2017-06-25] MEDS: FREE WATER G-TUBE SCH ×3 (05:03→18:00)
[2017-06-25] MEDS: METOPROLOL TARTRATE 25 MG TAB PO SCH (07:46)
[2017-06-25] MEDS: CHOLECALCIFEROL (VIT D3) 1000 UNIT TAB PO SCH (07:46)
[2017-06-25] MEDS: metroNIDAZOLE 500 MG TAB PO SCH ×2 (07:46→18:18)
[2017-06-25] MEDS: LACTOBACILLUS ACIDOPHILUS TAB PO SCH ×3 (07:46→18:17)
[2017-06-25] MEDS: PANTOPRAZOLE SOD 40 MG DELAYED RELEASE TAB PO SCH (07:47)
[2017-06-25] MEDS: VANCOMYCIN 500 MG VIAL (FOR ORAL USE ONLY) PO SCH ×4 (07:47→19:46)
[2017-06-25] MEDS: SODIUM CHLORIDE 0.9% FLUSH 10 ML FLUSH IV FLUSH SCH ×2 (07:47→19:46)
--- NOTE | 2017-06-25 09:49 | HHI.FF ---
Face to Face Verification Diagnosis: (1) COPD exacerbation Physical Therapy Order: Evaluate and Treat Home Health Nursing Order: Medical education Oxygen administration education Medication education-adverse effect I have seen patient Jose Key on 06/25/17. My clinical findings support the need for the requested home health care services because: Ltd mobility - disease progression Patient has SOB Deconditioned w/ increased weakness I certify that my clinical findings support that this patient is homebound because: Hx COPD- exertion dyspnea/weakness Elysia Moore MD Jun 25, 2017 09:49
[2017-06-25] MEDS: SODIUM CHLOR 0.45% 1000 ML INJ 1,000 ML IV SCH (10:53)
--- NOTE | 2017-06-25 11:37 | HHI.HCPN ---
Reason for visit a. To assist with evaluation and management of symptoms including: decreased appetite, debility, confusion b. To assist medical decision maker(s) with: better understanding of current medical conditions; weighing benefits/burdens of medical treatment options; making medical treatment decisions. . Subjective/Interval History Patient seen and examined today for follow-up regarding medical treatment goals of care, (Lorie) at bedside. Patient is resting with eyes closed; he arouses easily to verbal stimuli. He is pleasantly confused, oriented to self and able to identify his sitting next to him. Follows simple one-step commands. Patient denies pain or shortness of breath. + C. difficile colitis. Receiving vancomycin and Flagyl. Infectious disease following, recommending the patient be treated with a taper dose of vancomycin 6 weeks. Nursing reports ongoing black liquid diarrhea. Hemoglobin trending downward; H/H yesterday (June 24, 2017) was 8.3/25.0. Gastroenterology spoke with the patient's family yesterday and they want to proceed with EGD. Appetite remains poor; patient eating approximately 25-50%. BMI: 26.9. Albumin : 1.6. Speech therapy has been following the patient who is on a mechanically soft diet with thin liquids. Patient is debilitated with generalized weakness and lethargy, refusing PT on some days. Patient will require SNF placement for rehabilitation at discharge if goals remain aggressive, the patient's is unable to care for him at home. However, the patient's states she and her children would like to transition to hospice at discharge. . Family/friend interactions Patient was seen for follow-up on medical treatment goals of care. Patient's was at bedside. We discussed the patient's overall decline, and she updated on the patient's clinical condition. She states the is too weak for rehab and often refuses to participate. She would like to transition to hospice at discharge. If possible, she would like to take him home and focus on his comfort and quality of life. . Advance Directives Living Will: Copy in medical record Advance Directive Specifics Date completed: 08/02/2006 . Health Care Surrogate(s): Patient's (Lorie Key is designated as the healthcare surrogate decision maker. His son (Man Key) is the alternate health care surrogate. . Documented care wishes: Living will was completed on 08/02/2016 and is accessible in EMR as well as the patient's paper chart. . Significant change in goals: Transition to hospice upon discharge. . Objective Vital Signs Date Time Temp Pulse Resp B/P (MAP) Pulse Ox O2 Delivery O2 Flow Rate FiO2 06/25/17 10:00 54 06/25/17 09:00 54 06/25/17 08:00 80 06/25/17 07:37 97.9 70 19 129/66 (87) 100 06/25/17 07:00 76 06/25/17 05:00 82 06/25/17 04:32 97.8 70 18 132/69 (90) 98 06/25/17 04:00 72 06/25/17 03:00 82 06/25/17 02:00 72 06/25/17 01:00 72 06/25/17 00:00 72 06/24/17 23:01 97.6 77 18 141/74 (96) 98 06/24/17 23:00 83 06/24/17 22:00 82 06/24/17 21:57 97.8 72 18 136/68 (90) 98 06/24/17 21:00 82 06/24/17 20:00 80 06/24/17 19:43 94 Nasal Cannula 4.00 06/24/17 19:00 79 06/24/17 18:00 72 06/24/17 17:00 72 06/24/17 16:07 98.2 70 16 129/66 (87) 100 06/24/17 16:00 74 06/24/17 15:00 72 06/24/17 14:00 70 06/24/17 13:48 97 Nasal Cannula 2.00 06/24/17 13:00 68 06/24/17 12:00 70 06/24/17 11:30 95.6 74 18 116/66 (83) 97 06/24/17 11:30 89 Intake & Output 06/25/17 06/25/17 07:00 19:00 Intake Total 560 ml 950 ml Output Total 550 ml Balance 10 ml 950 ml Intake Oral 360 ml Oral Supplement 200 ml IV Total 950 ml Output Urine Total 550 ml . Physical Exam CONSTITUTIONAL/GENERAL: This is a frail, elderly male patient in no acute distress TUBES/LINES/DRAINS: PIV, Lowry SKIN: No jaundice, rashes, or lesions. Ecchymoses on upper extremities. No wounds seen anteriorly. Skin temperature appropriate. Not diaphoretic. HEAD: Atraumatic. Normocephalic. EYES: Pupils equal and round and reactive. Extraocular motions intact. No scleral icterus. No injection or drainage. Fundi not examined. ENT: Hearing grossly normal. Nose without bleeding or purulent drainage. NECK: Trachea midline. Supple, nontender. CARDIOVASCULAR: Regular rate and rhythm without murmurs, gallops, or rubs. No JVD. Peripheral pulses symmetric. RESPIRATORY/CHEST: Symmetric, unlabored respirations. Clear to auscultation. Breath sounds equal bilaterally. No wheezes, rales, or rhonchi. GASTROINTESTINAL: Abdomen soft, non-tender, nondistended. No guarding. Active bowel sounds 4 quadrants GENITOURINARY: Without palpable bladder distension. Lowry catheter in place. MUSCULOSKELETAL: Extremities without clubbing, cyanosis, or edema. No mottling or clubbing. Muscle wasting noted and bilateral lower extremities LYMPHATICS: No palpable cervical or supraclavicular adenopathy. NEUROLOGICAL: Pleasantly confused. Able to identify his who is sitting next to him. Follows one-step commands. PSYCHIATRIC: No obvious anxiety/depression. No apparent hallucinations or other psychotic thought process. . Diagnostic Tests Laboratory Laboratory Tests Test 06/23/17 08:34 06/24/17 06:00 06/24/17 06:09 White Blood Count 28.0 TH/MM3 (4.0-11.0) 24.5 TH/MM3 (4.0-11.0) Red Blood Count 2.92 MIL/MM3 (4.50-5.90) 2.67 MIL/MM3 (4.50-5.90) Hemoglobin 9.2 GM/DL (13.0-17.0) 8.3 GM/DL (13.0-17.0) Hematocrit 27.3 % (39.0-51.0) 25.0 % (39.0-51.0) Mean Corpuscular Volume 93.6 FL (80.0-100.0) 93.8 FL (80.0-100.0) Mean Corpuscular Hemoglobin 31.6 PG (27.0-34.0) 31.2 PG (27.0-34.0) Mean Corpuscular Hemoglobin Concent 33.7 % (32.0-36.0) 33.3 % (32.0-36.0) Red Cell Distribution Width 13.9 % (11.6-17.2) 13.7 % (11.6-17.2) Platelet Count 143 TH/MM3 (150-450) 153 TH/MM3 (150-450) Mean Platelet Volume 9.3 FL (7.0-11.0) 8.5 FL (7.0-11.0) Neutrophils (%) (Auto) 90.5 % (16.0-70.0) 88.8 % (16.0-70.0) Lymphocytes (%) (Auto) 5.3 % (9.0-44.0) 5.6 % (9.0-44.0) Monocytes (%) (Auto) 3.5 % (0.0-8.0) 3.5 % (0.0-8.0) Eosinophils (%) (Auto) 0.5 % (0.0-4.0) 1.8 % (0.0-4.0) Basophils (%) (Auto) 0.2 % (0.0-2.0) 0.3 % (0.0-2.0) Neutrophils # (Auto) 25.3 TH/MM3 (1.8-7.7) 21.8 TH/MM3 (1.8-7.7) Lymphocytes # (Auto) 1.5 TH/MM3 (1.0-4.8) 1.4 TH/MM3 (1.0-4.8) Monocytes # (Auto) 1.0 TH/MM3 (0-0.9) 0.9 TH/MM3 (0-0.9) Eosinophils # (Auto) 0.1 TH/MM3 (0-0.4) 0.4 TH/MM3 (0-0.4) Basophils # (Auto) 0.1 TH/MM3 (0-0.2) 0.1 TH/MM3 (0-0.2) CBC Comment AUTO DIFF AUTO DIFF Differential Total Cells Counted 100 100 Neutrophils % (Manual) 85 % (16-70) 88 % (16-70) Band Neutrophils % 12 % (0-6) 4 % (0-6) Lymphocytes % 2 % (9-44) 7 % (9-44) Monocytes % 1 % (0-8) Neutrophils # (Manual) 27.2 TH/MM3 (1.8-7.7) 22.5 TH/MM3 (1.8-7.7) Differential Comment FINAL DIFF MANUAL FINAL DIFF MANUAL Toxic Granulation 2+ (NORMAL) Platelet Estimate LOW (NORMAL) NORMAL (NORMAL) Platelet Morphology Comment NORMAL (NORMAL) NORMAL (NORMAL) Ovalocytes 1+ (NORMAL) Acanthocytes OCC (NORMAL) Blood Urea Nitrogen 56 MG/DL (7-18) 44 MG/DL (7-18) Creatinine 1.37 MG/DL (0.60-1.30) 1.33 MG/DL (0.60-1.30) Random Glucose 98 MG/DL (74-106) 98 MG/DL (74-106) Total Protein 4.6 GM/DL (6.4-8.2) Albumin 1.6 GM/DL (3.4-5.0) Calcium Level 9.0 MG/DL (8.5-10.1) 8.8 MG/DL (8.5-10.1) Alkaline Phosphatase 87 U/L (45-117) Aspartate Amino Transf (AST/SGOT) 24 U/L (15-37) Alanine Aminotransferase (ALT/SGPT) 20 U/L (12-78) Total Bilirubin 0.5 MG/DL (0.2-1.0) Sodium Level 143 MEQ/L (136-145) 144 MEQ/L (136-145) Potassium Level 4.0 MEQ/L (3.5-5.1) 3.8 MEQ/L (3.5-5.1) Chloride Level 113 MEQ/L (98-107) 115 MEQ/L (98-107) Carbon Dioxide Level 20.6 MEQ/L (21.0-32.0) 21.9 MEQ/L (21.0-32.0) Anion Gap 9 MEQ/L (5-15) 7 MEQ/L (5-15) Estimat Glomerular Filtration Rate 49 ML/MIN (>89) 51 ML/MIN (>89) Eosinophils % 1 % (0-4) Red Cell Morphology Comment NORMAL (NORMAL) . Result Diagram: 06/24/17 0600 06/24/17 0609 Microbiology Microbiology Date/Time Source Procedure Growth Status 06/22/17 21:30 Stool Stool Stool Occult Blood (SLIM) - Final HEMOCCULT POSITIVE Complete Imaging Last 72 hours Impressions Chest X-Ray 06/24/17 0000 Signed Impressions: Service Date/Time: June 09:54 - CONCLUSION: No acute disease. Dontae Souza MD . Assessment and Plan Disease Oriented Problem List: (1) Acute renal failure (2) Colitis (3) Dementia (4) HTN (hypertension) (5) Failure to thrive in adult (6) C. difficile colitis (7) Bloody diarrhea (8) Sepsis Symptom Scale: (1) Debility 0-10 Scale: Unable to quantify (2) Decrease in appetite 0-10 Scale: Unable to quantify (3) Confusion 0-10 Scale: Unable to quantify Pertinent Non-Medical Issues Psychosocial:Patient is a poor historian. He states he is originally from [place] but was unable to provide any other information. Further information pending conversation with patient's family. Spiritual: None Legal: Per [place] statutes, in the absence of written advanced directives healthcare proxy decision making would fall to the patient's (Lorie Key). Ethical issues impacting care: No known ethical issues impacting care at this time. . Important Contacts Lorie Key, spouse: [phone] or cell [phone] Melvina Calderon, daughter: [phone] . Prognosis Patient is an 86-year-old male who has been hospitalized 2 times in the past month with recurrent sepsis and C. difficile colitis. During that time the patient has had a significant decline in his functional status as evidenced by his now complete dependence for all the ADLs and he was previously independent. Patient is at risk for ongoing complications secondary to his advanced age, decreased nutritional intake, recurrent infections requiring hospitalizations and decreasing functional status. Code Status: No Code Plan * NO CODE-DNR/DNI * Decision-making: Patient currently has limited insight and judgment in relation to his medical conditions, given his baseline dementia it is unlikely he will regain this capacity. HCS designation form completed on 08/02/2016. Patient's (Lorie Key is designated as the healthcare surrogate decision maker. His son (Man Key) is the alternate health care surrogate. * Living will was completed on 08/02/2016 and is accessible in patient's EMR. He also placed and patient's paper chart. * Goals: Family goals remain aggressive to the point of cardiopulmonary resuscitation. Plan to transition to hospice at discharge. * Spoke with hospice admission nurse (Ana Marrufo) to update on the family's decision to proceed with hospice services. Contacted hospice intake to notify them that the patient's was at the bedside and would like to meet with someone from hospice when possible. * Symptom management-decreased appetite: Patient, is a frail, cachectic male who has experienced an acute decline in recent months. Appetite remains poor, intake 25-50%. BMI: 26.9 Albumin: 1.6 Speech therapy has been following the patient who is on a mechanically soft diet with thin liquids. * Symptom management-confusion: Patient is pleasantly confused. He is able to identify his sitting next to him by name. He follows one-step commands. He is on Aricept at home which is recommended for mild to moderate dementia and may no longer be providing any benefit to this patient. * Symptom management-debility: Per review of notes, patient's states the patient was relatively independent prior to being hospitalized in May,. He states he had a cane but rarely used it to assist with ambulation. Since being hospitalized in 05/2017 with sepsis and C. difficile, the patient has had an acute decline. He is currently dependent for all ADLs and requires assistance with feeding, often refuses to participate in physical therapy. * Palliative care will continue to follow this patient throughout his hospitalization to establish trust, assist with symptom management and clarification of medical treatment goals. . Attestation To help prompt me to consider important information that might be impacting today's encounter and assessment, information from prior notes written by myself or my colleagues may have been "brought forward" into today's note. My signature on this note, however, is an attestation that I personally performed the exam, history, and/or decision-making noted today, and, unless otherwise indicated, the interactions with patient, family, and staff as well as the review of records all occurred today. I also attest that the listed assessment and stated plan reflect my best clinical judgment today based on the combination of historical information, prior notes, and today's exam/ interactions. When time spent is documented, it refers only to time spent today by the signer, or if indicated, combined time spent today by collaborating physician/nurse practitioner. . Cate Johnson 15, 2017 11:37
[2017-06-25 11:52] LABS: HEMATOCRIT 25.9 % (39.0-51.0); REVIEW FLAG FINAL
[2017-06-25] MEDS ORDERED: PROPOFOL 200 MG/20 ML AMP IV ONE (12:00)
[2017-06-25] MEDS ORDERED: ePHEDrine/NS 25 MG/5 ML SYRINGE IV ONE (12:00)
--- NOTE | 2017-06-25 12:20 | HHI.PR ---
Subjective Remarks Discussed with patient's at bedside. He has been sleeping through the morning. Waiting to go down for EGD which should happen very soon. Objective Vitals Vital Signs Date Time Temp Pulse Resp B/P (MAP) Pulse Ox O2 Delivery O2 Flow Rate FiO2 06/25/17 11:00 97.5 58 18 115/55 (75) 96 06/25/17 10:00 54 06/25/17 09:00 54 06/25/17 08:00 80 06/25/17 07:37 97.9 70 19 129/66 (87) 100 06/25/17 07:00 76 06/25/17 05:00 82 06/25/17 04:32 97.8 70 18 132/69 (90) 98 06/25/17 04:00 72 06/25/17 03:00 82 06/25/17 02:00 72 06/25/17 01:00 72 06/25/17 00:00 72 06/24/17 23:01 97.6 77 18 141/74 (96) 98 06/24/17 23:00 83 06/24/17 22:00 82 06/24/17 21:57 97.8 72 18 136/68 (90) 98 06/24/17 21:00 82 06/24/17 20:00 80 06/24/17 19:43 94 Nasal Cannula 4.00 06/24/17 19:00 79 06/24/17 18:00 72 06/24/17 17:00 72 06/24/17 16:07 98.2 70 16 129/66 (87) 100 06/24/17 16:00 74 06/24/17 15:00 72 06/24/17 14:00 70 06/24/17 13:48 97 Nasal Cannula 2.00 06/24/17 13:00 68 I/O 06/24/17 06/24/17 06/24/17 06/25/17 06/25/17 06/25/17 07:00 15:00 23:00 07:00 15:00 23:00 Intake Total 120 ml 520 ml 600 ml 560 ml 950 ml Output Total 550 ml 600 ml 550 ml Balance -430 ml 520 ml 0 ml 10 ml 950 ml Intake Oral 120 ml 600 ml 360 ml Oral Supplement 200 ml IV Total 520 ml 950 ml Output Urine Total 550 ml 600 ml 550 ml # Bowel Movements 2 1 Result Diagram: 06/25/17 1058 06/24/17 0609 Objective Remarks GENERAL: Chronically ill appearing elderly male patient. SKIN: Warm and dry. HEAD: Normocephalic. EYES: No scleral icterus. No injection or drainage. NECK: Supple, trachea midline. No JVD or lymphadenopathy. CARDIOVASCULAR: Regular rate and rhythm without murmurs, gallops, or rubs. RESPIRATORY: Breath sounds equal and clear to auscultation bilaterally. No accessory muscle use. GASTROINTESTINAL: Abdomen soft, non-tender, nondistended. EXTREMITIES: No cyanosis, or edema. A/P Assessment and Plan Sepsis with C. difficile colitis (recurrent) bacteremia with klebsiella leukocytosis he was previously treated with PO vanco and finished course of antibiotic, now repeat stool positive for Cdiff with significant diarrhea, leukocytosis evaluated by ID; Continue vancomycin and Flagyl. Per ID/dr. shukla no need to treat the klebsiella bacteremia at this time - since the repeated blood cultures are negative. leukocytosis persists Anemia of acute blood loss due to GI bleeding monitor H/H- GI consult appreciated; discussed with Dr. Rey, endoscopy today Hemoglobin pending today, will recheck in the morning Acute Renal failure. initially cr 5->1.3 Vit D deficiency . Appears ZOLTAN related to volume depletion in setting of dehydration from diarrhea. Recent increase in ACEI likely also contributing. continue IV fluid-gentle hydration. NS at 50 ml/hr renal sonogram with no acute abnormality. Hold ACEI nephrology ff, appreciate recommendations continue with vitamin D supplement. Avoid nephrotoxic agents such as iodinated contrast dyes and NSAIDs. Avoid gadolinium. remove katz catheter Failure to thrive in adult, Severe protein calorie malnutrition. - swallow evaluation recommends mechanical soft diet and thin liquids. Consulted animal control licensing worker who recommended to ensure 3 times a day. Frail cachectic weak handgrip , low albumin at 2,, prealbumin of 9. Continue mechanical soft diet with thin liquids. Add ensure to diet after EGD. Physical deconditioning Cont PT HTN (hypertension) Blood pressure stable Hold ACEI Continue on Amlodipine and Metoprolol Dementia Continue home meds DVT ppx SCD/TEDS-no pharmacologic prophylaxis due to occult GI bleed. DNR status. palliative care consult appreciated. family has elected for hospice when patient stable for DC. Patient's cares for the patient alone at home , consider short stay at the hospice care facility. Otherwise he will probably require SNF due to lack of support at home. Elysia Moore MD Jun 25, 2017 12:20
--- NOTE | 2017-06-25 17:03 | HHI.GIFU ---
Subjective Remarks EGD with biopsy performed for history of melenic stool. Anemia. Findings of large duodenal bulbar ulcer. No stigmata of bleeding. Friable edges. Gastritis seen, biopsy obtained. Esophagus normal. Small hiatal hernia Objective Vitals I&O Vital Signs Date Time Temp Pulse Resp B/P (MAP) Pulse Ox O2 Delivery O2 Flow Rate FiO2 06/25/17 15:46 97.9 63 18 108/55 (72) 98 06/25/17 14:28 96 Nasal Cannula 2.00 06/25/17 14:02 58 06/25/17 13:00 62 06/25/17 12:00 54 06/25/17 11:00 57 06/25/17 11:00 97.5 58 18 115/55 (75) 96 06/25/17 10:00 54 06/25/17 09:00 54 06/25/17 08:00 80 06/25/17 07:37 97.9 70 19 129/66 (87) 100 06/25/17 07:00 76 06/25/17 05:00 82 06/25/17 04:32 97.8 70 18 132/69 (90) 98 06/25/17 04:00 72 06/25/17 03:00 82 06/25/17 02:00 72 06/25/17 01:00 72 06/25/17 00:00 72 06/24/17 23:01 97.6 77 18 141/74 (96) 98 06/24/17 23:00 83 06/24/17 22:00 82 06/24/17 21:57 97.8 72 18 136/68 (90) 98 06/24/17 21:00 82 06/24/17 20:00 80 06/24/17 19:43 94 Nasal Cannula 4.00 06/24/17 19:00 79 06/24/17 18:00 72 06/24/17 17:00 72 I/O 06/24/17 06/24/17 06/24/17 06/25/17 06/25/17 06/25/17 07:00 15:00 23:00 07:00 15:00 23:00 Intake Total 120 ml 520 ml 600 ml 560 ml 950 ml Output Total 550 ml 600 ml 550 ml Balance -430 ml 520 ml 0 ml 10 ml 950 ml Intake Oral 120 ml 600 ml 360 ml Oral Supplement 200 ml IV Total 520 ml 950 ml Output Urine Total 550 ml 600 ml 550 ml # Bowel Movements 2 1 Laboratory Laboratory Tests Test 06/25/17 10:58 Hemoglobin 8.5 Hematocrit 25.9 Date/Time Source Procedure Growth Status 06/20/17 12:40 Blood Peripheral Aerobic Blood Culture - Final NO GROWTH IN 5 DAYS Complete 06/20/17 12:40 Blood Peripheral Anaerobic Blood Culture - Final NO GROWTH IN 5 DAYS Complete 06/22/17 21:30 Stool Stool Stool Occult Blood (SLIM) - Final HEMOCCULT POSITIVE Complete 06/16/17 14:57 Urine Catheterized Urine Urine Culture - Final NO GROWTH IN 48 HOURS. Complete Physical Exam HEENT: Normocephalic; atraumatic CHEST: CTA CARDIAC: RRR ABDOMEN: Soft, nondistended, nontender; no hepatosplenomegaly; bowel sounds active x 4. EXTREMITIES: No clubbing, cyanosis, or edema. SKIN: Normal; no rash; no jaundice. SIMULATION SOFTWARE ENGINEER: Confused Assessment and Plan Assessment: (1) Bloody diarrhea ICD Codes: R19.7 - Diarrhea, unspecified (2) Clostridium difficile diarrhea ICD Codes: A04.72 - Enterocolitis due to Clostridium difficile, not specified as recurrent (3) Colitis ICD Codes: K52.9 - Noninfective gastroenteritis and colitis, unspecified Status: Acute (4) Dementia ICD Codes: F03.90 - Unspecified dementia without behavioral disturbance (5) C. difficile colitis ICD Codes: A04.72 - Enterocolitis due to Clostridium difficile, not specified as recurrent (6) Failure to thrive in adult ICD Codes: R62.7 - Adult failure to thrive Status: Acute Plan Assessment: C diff colitis- (+) C. diff toxin- negative epid. ID following. Receiving oral Vanco and Flagyl- Reports of continued diarrhea. Abdominal exam benign. Laxatives discontinued at this time. Probiotic. Anemia- normocytic- ?GIB- Nurse reports black, tarry stools. Hemoglobin trending downward. Current H/H 8.3/25.0. EGD to be done tomorrow. Spoke with pts and daughter and they discussed pt proceeding with the EGD and they are agreeable. Pt has already eaten breakfast today. Will schedule for tomorrow. EGD today shows large duodenal ulcer. No active bleeding. Friable edges. Gastritis, biopsy obtained rule out H Pylori. Plan: - Increase protonix to bid ac - Continue Vanco - Continue Flagyl - Monitor H/H - Monitor for GI bleeding - Transfuse as needed - Supportive care - Further recommendations to follow Michael Jackson MD Jun 25, 2017 17:03
[2017-06-25] MEDS ORDERED: DO NOT ADM ANY ANTICOAGULANT DRUGS PRN (17:13)
[2017-06-25] MEDS: DONEPEZIL HCL 5 MG TAB PO SCH (19:46)
[2017-06-26] VITALS (26 sets, daily range): BP systolic 118–159; BP diastolic 58–77; PULSE 64–113; RESP 16–20; TEMP 97.4–98.2; O2SAT 92–100
[2017-06-26] MEDS: metroNIDAZOLE 500 MG TAB PO SCH ×3 (00:15→16:00)
[2017-06-26] MEDS: SODIUM CHLOR 0.45% 1000 ML INJ 1,000 ML IV SCH (00:16)
[2017-06-26] MEDS: FREE WATER G-TUBE SCH ×4 (05:23→18:00)
[2017-06-26] MEDS: PANTOPRAZOLE SOD 40 MG DELAYED RELEASE TAB PO SCH ×2 (05:23→16:00)
[2017-06-26 07:31] LABS: AUTOMATED NEUTROPHIL # 11.7 TH/MM3 (1.8-7.7); BASOPHIL % 0.2 % (0.0-2.0); EOSINOPHIL # 0.3 TH/MM3 (0-0.4); EOSINOPHIL % 2.4 % (0.0-4.0); HEMATOCRIT 22.4 % (39.0-51.0); HEMO FLAGS DIFF FINAL; LYMPH % 7.7 % (9.0-44.0); LYMPHOCYTE # 1.1 TH/MM3 (1.0-4.8); MEAN CELL VOLUME 93.5 FL (80.0-100.0); MEAN CORPUSCULAR HEMOGLOBIN 31.7 PG (27.0-34.0); MEAN CORPUSCULAR HGB CONC 33.9 % (32.0-36.0); MONO % 4.3 % (0.0-8.0); NEUT % 85.4 % (16.0-70.0); PLATELET COUNT 155 TH/MM3 (150-450); RED CELL DISTRIBUTION WIDTH 13.8 % (11.6-17.2); WHITE BLOOD COUNT 13.7 TH/MM3 (4.0-11.0)
[2017-06-26 07:54] LABS: POTASSIUM 3.9 MEQ/L (3.5-5.1)
[2017-06-26] MEDS: SODIUM CHLORIDE 0.9% FLUSH 10 ML FLUSH IV FLUSH SCH ×2 (09:00→20:56)
--- NOTE | 2017-06-26 10:23 | HHI.GIFU ---
Subjective Remarks Pt is resting in bed, in no apparent distress. Confused, unable to answer questions appropriately. No family at bedside. Objective Vitals I&O Vital Signs Date Time Temp Pulse Resp B/P (MAP) Pulse Ox O2 Delivery O2 Flow Rate FiO2 06/26/17 06:00 77 06/26/17 05:00 75 06/26/17 04:00 Room Air 06/26/17 04:00 98.1 72 18 118/60 (79) 96 06/26/17 04:00 72 06/26/17 03:00 70 06/26/17 02:00 68 06/26/17 01:00 69 06/26/17 00:00 74 06/26/17 00:00 Room Air 06/26/17 00:00 98.2 74 18 128/62 (84) 96 06/25/17 23:00 69 06/25/17 22:00 65 06/25/17 21:00 61 06/25/17 20:00 98.0 67 18 122/59 (80) 97 06/25/17 20:00 67 06/25/17 20:00 Room Air 06/25/17 18:09 66 06/25/17 17:35 74 20 97 06/25/17 17:30 62 16 118/56 (76) 100 Nasal Cannula 2 06/25/17 17:15 68 18 108/53 (71) 98 Nasal Cannula 2 06/25/17 17:10 97.9 92 18 109/54 (72) 98 06/25/17 16:00 60 06/25/17 15:46 97.9 63 18 108/55 (72) 98 06/25/17 15:00 63 06/25/17 14:28 96 Nasal Cannula 2.00 06/25/17 14:02 58 06/25/17 13:00 62 06/25/17 12:00 54 06/25/17 11:00 57 06/25/17 11:00 97.5 58 18 115/55 (75) 96 I/O 06/25/17 06/25/17 06/25/17 06/26/17 06/26/17 06/26/17 07:00 15:00 23:00 07:00 15:00 23:00 Intake Total 560 ml 950 ml 420 ml 550 ml Output Total 550 ml 450 ml Balance 10 ml 950 ml -30 ml 550 ml Intake Oral 360 ml 0 ml 50 ml Oral Supplement 200 ml IV Total 950 ml 320 ml 500 ml Other 100 ml Output Urine Total 550 ml 450 ml # Voids 3 # Bowel Movements 1 3 Laboratory Laboratory Tests Test 06/25/17 10:58 06/26/17 06:55 Hemoglobin 8.5 7.6 Hematocrit 25.9 22.4 White Blood Count 13.7 Red Blood Count 2.40 Mean Corpuscular Volume 93.5 Mean Corpuscular Hemoglobin 31.7 Mean Corpuscular Hemoglobin Concent 33.9 Red Cell Distribution Width 13.8 Platelet Count 155 Mean Platelet Volume 8.4 Neutrophils (%) (Auto) 85.4 Lymphocytes (%) (Auto) 7.7 Monocytes (%) (Auto) 4.3 Eosinophils (%) (Auto) 2.4 Basophils (%) (Auto) 0.2 Neutrophils # (Auto) 11.7 Lymphocytes # (Auto) 1.1 Monocytes # (Auto) 0.6 Eosinophils # (Auto) 0.3 Basophils # (Auto) 0.0 CBC Comment DIFF FINAL Differential Comment Blood Urea Nitrogen 30 Creatinine 1.09 Random Glucose 87 Calcium Level 8.4 Sodium Level 142 Potassium Level 3.9 Chloride Level 113 Carbon Dioxide Level 21.0 Anion Gap 8 Estimat Glomerular Filtration Rate 64 Date/Time Source Procedure Growth Status 06/20/17 12:40 Blood Peripheral Aerobic Blood Culture - Final NO GROWTH IN 5 DAYS Complete 06/20/17 12:40 Blood Peripheral Anaerobic Blood Culture - Final NO GROWTH IN 5 DAYS Complete 06/22/17 21:30 Stool Stool Stool Occult Blood (SLIM) - Final HEMOCCULT POSITIVE Complete 06/16/17 14:57 Urine Catheterized Urine Urine Culture - Final NO GROWTH IN 48 HOURS. Complete Imaging Last Impressions Chest X-Ray 06/24/17 0000 Signed Impressions: Service Date/Time: June 09:54 - CONCLUSION: No acute disease. Dontae Souza MD Renal Ultrasound 06/16/17 0000 Signed Impressions: Service Date/Time: Friday, June 16, 2017 20:41 - CONCLUSION: No acute disease. Suhas Terrazas MD Physical Exam HEENT: Normocephalic; atraumatic CHEST: CTA CARDIAC: RRR ABDOMEN: Soft, nondistended, nontender; no hepatosplenomegaly; bowel sounds active x 4. EXTREMITIES: No clubbing, cyanosis, or edema. SKIN: Normal; no rash; no jaundice. TUBE ROLLER: Confused Assessment and Plan Assessment: (1) Bloody diarrhea ICD Codes: R19.7 - Diarrhea, unspecified (2) Clostridium difficile diarrhea ICD Codes: A04.72 - Enterocolitis due to Clostridium difficile, not specified as recurrent (3) Colitis ICD Codes: K52.9 - Noninfective gastroenteritis and colitis, unspecified Status: Acute (4) Dementia ICD Codes: F03.90 - Unspecified dementia without behavioral disturbance (5) C. difficile colitis ICD Codes: A04.72 - Enterocolitis due to Clostridium difficile, not specified as recurrent (6) Failure to thrive in adult ICD Codes: R62.7 - Adult failure to thrive Status: Acute Plan Assessment: C diff colitis- (+) C. diff toxin- negative epid. ID following. Receiving oral Vanco and Flagyl- Reports of continued diarrhea. Abdominal exam benign. Laxatives discontinued at this time. Probiotic. Anemia- normocytic- ?GIB- Nurse reports black, tarry stools. Hemoglobin trending downward. Current H/H 7.6/22.4. 2 U PRBCs ordered. Transfusion pending. EGD (06/25) --> Large duodenal bulbar ulcer. No stigmata of bleeding. Friable edges. Gastritis. Esophagus normal. Small hiatal hernia. Pathology pending. PPI increased to BID. Plan: - Increase Protonix to bid - Continue Vanco - Continue Flagyl - Monitor H/H - Monitor for GI bleeding - Transfuse as needed - Supportive care - Further recommendations to follow Pt has been seen and examined by myself and Dr. Jackson and this note is written on his behalf Haley Roy CHEMICAL PRODUCTION MACHINE OPERATOR Jun 26, 2017 10:23
[2017-06-26] MEDS: LACTOBACILLUS ACIDOPHILUS TAB PO SCH ×3 (11:21→18:00)
[2017-06-26] MEDS: METOPROLOL TARTRATE 25 MG TAB PO SCH (11:21)
[2017-06-26] MEDS: CHOLECALCIFEROL (VIT D3) 1000 UNIT TAB PO SCH (11:21)
[2017-06-26] MEDS: VANCOMYCIN 500 MG VIAL (FOR ORAL USE ONLY) PO SCH ×4 (11:21→20:56)
--- NOTE | 2017-06-26 13:53 | HHI.PR ---
Subjective Remarks Patient denies pain or dyspnea. Nurse has noticed skin redness on sacrum. Objective Vitals Vital Signs Date Time Temp Pulse Resp B/P (MAP) Pulse Ox O2 Delivery O2 Flow Rate FiO2 06/26/17 11:00 113 18 130/77 (94) 99 06/26/17 08:00 97.4 80 16 125/64 (84) 100 06/26/17 08:00 100 Room Air 06/26/17 06:00 77 06/26/17 05:00 75 06/26/17 04:00 Room Air 06/26/17 04:00 98.1 72 18 118/60 (79) 96 06/26/17 04:00 72 06/26/17 03:00 70 06/26/17 02:00 68 06/26/17 01:00 69 06/26/17 00:00 74 06/26/17 00:00 Room Air 06/26/17 00:00 98.2 74 18 128/62 (84) 96 06/25/17 23:00 69 06/25/17 22:00 65 06/25/17 21:00 61 06/25/17 20:00 98.0 67 18 122/59 (80) 97 06/25/17 20:00 67 06/25/17 20:00 Room Air 06/25/17 18:09 66 06/25/17 17:35 74 20 97 06/25/17 17:30 62 16 118/56 (76) 100 Nasal Cannula 2 06/25/17 17:15 68 18 108/53 (71) 98 Nasal Cannula 2 06/25/17 17:10 97.9 92 18 109/54 (72) 98 06/25/17 16:00 60 06/25/17 15:46 97.9 63 18 108/55 (72) 98 06/25/17 15:00 63 06/25/17 14:28 96 Nasal Cannula 2.00 06/25/17 14:02 58 I/O 06/25/17 06/25/17 06/25/17 06/26/17 06/26/17 06/26/17 07:00 15:00 23:00 07:00 15:00 23:00 Intake Total 560 ml 950 ml 420 ml 550 ml Output Total 550 ml 450 ml Balance 10 ml 950 ml -30 ml 550 ml Intake Oral 360 ml 0 ml 50 ml Oral Supplement 200 ml IV Total 950 ml 320 ml 500 ml Other 100 ml Output Urine Total 550 ml 450 ml # Voids 3 # Bowel Movements 1 3 Result Diagram: 06/26/1765406/26/17654 Objective Remarks GENERAL: Chronically ill appearing elderly male patient. SKIN: Warm and dry. HEAD: Normocephalic. EYES: No scleral icterus. No injection or drainage. NECK: Supple, trachea midline. No JVD or lymphadenopathy. CARDIOVASCULAR: Regular rate and rhythm without murmurs, gallops, or rubs. RESPIRATORY: Breath sounds equal and clear to auscultation bilaterally. No accessory muscle use. GASTROINTESTINAL: Abdomen soft, non-tender, nondistended. EXTREMITIES: No cyanosis, or edema. A/P Assessment and Plan Sepsis with C. difficile colitis (recurrent) bacteremia with klebsiella leukocytosis he was previously treated with PO vanco and finished course of antibiotic, now repeat stool positive for Cdiff with significant diarrhea, leukocytosis evaluated by ID; Continue vancomycin and Flagyl. Per ID/dr. shukla no need to treat the klebsiella bacteremia at this time - since the repeated blood cultures are negative. leukocytosis persists Anemia of acute blood loss due to GI bleeding from large duodenal ulcer, gastritis monitor H/H- GI consult appreciated; discussed with Dr. Rey, endoscopy showed large duodenal ulcer and gastritis Hemoglobin 7.6 today we will transfuse 2 units packed red blood cells Acute Renal failure. initially cr 5-> now 1 Vit D deficiency . Appears ZOLTAN related to volume depletion in setting of dehydration from diarrhea. Recent increase in ACEI likely also contributing. DC IV fluids renal sonogram with no acute abnormality. Hold ACEI nephrology ff, appreciate recommendations continue with vitamin D supplement. Avoid nephrotoxic agents such as iodinated contrast dyes and NSAIDs. Avoid gadolinium. Failure to thrive in adult, Severe protein calorie malnutrition. - swallow evaluation recommends mechanical soft diet and thin liquids. Consulted facs teacher who recommended to ensure 3 times a day. Frail cachectic weak handgrip , low albumin at 2,, prealbumin of 9. Continue mechanical soft diet with thin liquids. Add ensure to diet after EGD. Physical deconditioning Cont PT HTN (hypertension) Blood pressure stable Hold ACEI Continue on Amlodipine and Metoprolol Dementia Continue home meds Skin redness and sacrum Consult wound care nurse DVT ppx SCD/TEDS-no pharmacologic prophylaxis due to occult GI bleed. DNR status. palliative care consult appreciated. family has elected for hospice when patient stable for DC. Patient's cares for the patient alone at home , consider short stay at the hospice care facility. Otherwise he will probably require SNF due to lack of support at home. Elysia Moore MD Jun 26, 2017 13:53
[2017-06-26] MEDS: DONEPEZIL HCL 5 MG TAB PO SCH (20:55)
[2017-06-27] VITALS (25 sets, daily range): BP systolic 137–169; BP diastolic 53–93; PULSE 64–97; RESP 18–22; TEMP 98–98.7; O2SAT 95–100
[2017-06-27] MEDS: metroNIDAZOLE 500 MG TAB PO SCH ×2 (00:15→08:44)
[2017-06-27] MEDS: SODIUM CHLOR 0.45% 1000 ML INJ 1,000 ML IV SCH (00:16)
[2017-06-27] MEDS: FREE WATER G-TUBE SCH ×4 (06:00→18:00)
[2017-06-27] MEDS: PANTOPRAZOLE SOD 40 MG DELAYED RELEASE TAB PO SCH ×2 (06:35→17:17)
[2017-06-27] MEDS: CHOLECALCIFEROL (VIT D3) 1000 UNIT TAB PO SCH (08:44)
[2017-06-27] MEDS: LACTOBACILLUS ACIDOPHILUS TAB PO SCH ×3 (08:44→17:17)
[2017-06-27] MEDS: METOPROLOL TARTRATE 25 MG TAB PO SCH (08:44)
[2017-06-27] MEDS: VANCOMYCIN 500 MG VIAL (FOR ORAL USE ONLY) PO SCH ×3 (08:44→17:18)
--- NOTE | 2017-06-27 09:30 | HHI.GIFU ---
Subjective Remarks Patient resting in bed eating breakfast. Tolerating diet. Reports he is doing well. Denies abdominal pain. No active bleeding noted per RN. Objective Vitals I&O Vital Signs Date Time Temp Pulse Resp B/P (MAP) Pulse Ox O2 Delivery O2 Flow Rate FiO2 06/27/17 07:38 95 21 06/27/17 06:00 76 06/27/17 05:30 98.0 74 18 140/70 99 06/27/17 05:00 73 06/27/17 04:00 69 06/27/17 03:59 98.0 69 18 147/74 (98) 100 06/27/17 03:59 Room Air 06/27/17 03:00 73 06/27/17 02:55 98.6 75 20 147/53 100 06/27/17 02:30 98.6 75 20 137/64 100 06/27/17 02:00 70 06/27/17 01:00 71 06/27/17 00:00 76 06/26/17 23:49 Room Air 06/26/17 23:49 98.0 76 18 141/58 (85) 98 06/26/17 23:00 73 06/26/17 22:00 75 06/26/17 21:00 71 06/26/17 20:00 74 06/26/17 20:00 98.1 74 18 159/74 (102) 99 06/26/17 20:00 Room Air 06/26/17 18:00 64 06/26/17 17:51 98.0 82 16 142/66 94 06/26/17 17:36 97.9 83 20 123/69 92 06/26/17 17:00 66 06/26/17 16:00 71 06/26/17 15:00 66 06/26/17 15:00 73 16 123/69 (87) 92 06/26/17 14:00 64 06/26/17 14:00 21 06/26/17 13:00 64 06/26/17 12:00 74 06/26/17 11:00 113 18 130/77 (94) 99 06/26/17 11:00 82 06/26/17 10:00 76 I/O 12/16/17 12/16/17 12/16/17 12/17/17 12/17/17 12/17/17 07:00 15:00 23:00 07:00 15:00 23:00 Intake Total 550 ml 1130 ml 1850 ml Output Total 800 ml Balance 550 ml 1130 ml 1050 ml Intake Oral 50 ml 720 ml 240 ml IV Total 500 ml 500 ml Packed Cells 400 ml 1100 ml Blood Product IV Normal Saline Flush 10 ml 10 ml Output Urine Total 800 ml # Voids 3 2 # Bowel Movements 3 1 1 Laboratory Date/Time Source Procedure Growth Status 06/20/17 12:40 Blood Peripheral Aerobic Blood Culture - Final NO GROWTH IN 5 DAYS Complete 06/20/17 12:40 Blood Peripheral Anaerobic Blood Culture - Final NO GROWTH IN 5 DAYS Complete 06/22/17 21:30 Stool Stool Stool Occult Blood (SLIM) - Final HEMOCCULT POSITIVE Complete 06/16/17 14:57 Urine Catheterized Urine Urine Culture - Final NO GROWTH IN 48 HOURS. Complete Imaging Last Impressions Chest X-Ray 06/24/17 0000 Signed Impressions: Service Date/Time: June 09:54 - CONCLUSION: No acute disease. Dontae Souza MD Renal Ultrasound 06/16/17 0000 Signed Impressions: Service Date/Time: Friday, June 16, 2017 20:41 - CONCLUSION: No acute disease. Suhas Terrazas MD Physical Exam HEENT: Normocephalic; atraumatic CHEST: CTA CARDIAC: RRR ABDOMEN: Soft, nondistended, nontender; no hepatosplenomegaly; bowel sounds active x 4. EXTREMITIES: No clubbing, cyanosis, or edema. SKIN: Normal; no rash; no jaundice. SPEECH PATHOLOGIST ASSISTANT: Awake and alert. Assessment and Plan Assessment: (1) Bloody diarrhea ICD Codes: R19.7 - Diarrhea, unspecified (2) Clostridium difficile diarrhea ICD Codes: A04.72 - Enterocolitis due to Clostridium difficile, not specified as recurrent (3) Colitis ICD Codes: K52.9 - Noninfective gastroenteritis and colitis, unspecified Status: Acute (4) Dementia ICD Codes: F03.90 - Unspecified dementia without behavioral disturbance (5) C. difficile colitis ICD Codes: A04.72 - Enterocolitis due to Clostridium difficile, not specified as recurrent (6) Failure to thrive in adult ICD Codes: R62.7 - Adult failure to thrive Status: Acute Plan Assessment: C diff colitis- (+) C. diff toxin- negative epid. ID following. Receiving oral Vanco and Flagyl- Reports of continued diarrhea. Abdominal exam benign. Laxatives discontinued at this time. Probiotic. Anemia- normocytic- ?GIB- Nurse reports black, tarry stools. Hemoglobin trending downward. Current H/H 7.6/22.4. 2 U PRBCs ordered. Transfusion pending. EGD (06/25) --> Large duodenal bulbar ulcer. No stigmata of bleeding. Friable edges. Gastritis. Esophagus normal. Small hiatal hernia. Pathology pending. PPI increased to BID. 06/27/17--Denies abdominal pain. No active bleeding, per RN. HH 7.6/22.4 yesterday. Patient is s/p 2 units of PRBCs. No current labs to review for today at this time. CBC/BMP have been ordered. Plan: - Continue Protonix BID - Continue Vanco - Continue Flagyl - Monitor H/H - Transfuse as needed - Notify GI of active bleeding - Supportive care - Further recommendations to follow based on results of above Patient seen and examined by Dr. Jackson and myself and this note is written on his behalf. Agata Harper Jun 27, 2017 09:30
[2017-06-27] MEDS ORDERED: RESP: ALBUTEROL 2.5 MG/IPRATROPIUM 0.5 MG NEB (PRN) NEB (12:30)
--- NOTE | 2017-06-27 12:32 | HHI.PR ---
Subjective Remarks Nurse states that he refused a new IV to be replaced. Labs not drawn this morning. Patient denies pain. not at bedside. Objective Vitals Vital Signs Date Time Temp Pulse Resp B/P (MAP) Pulse Ox O2 Delivery O2 Flow Rate FiO2 06/27/17 12:21 98.7 88 22 145/77 (99) 99 06/27/17 08:00 98.1 97 18 169/93 (118) 100 06/27/17 07:38 95 21 06/27/17 06:00 76 06/27/17 05:30 98.0 74 18 140/70 99 06/27/17 05:00 73 06/27/17 04:00 69 06/27/17 03:59 98.0 69 18 147/74 (98) 100 06/27/17 03:59 Room Air 06/27/17 03:00 73 06/27/17 02:55 98.6 75 20 147/53 100 06/27/17 02:30 98.6 75 20 137/64 100 06/27/17 02:00 70 06/27/17 01:00 71 06/27/17 00:00 76 06/26/17 23:49 Room Air 06/26/17 23:49 98.0 76 18 141/58 (85) 98 06/26/17 23:00 73 06/26/17 22:00 75 06/26/17 21:00 71 06/26/17 20:00 74 06/26/17 20:00 98.1 74 18 159/74 (102) 99 06/26/17 20:00 Room Air 06/26/17 18:00 64 06/26/17 17:51 98.0 82 16 142/66 94 06/26/17 17:36 97.9 83 20 123/69 92 06/26/17 17:00 66 06/26/17 16:00 71 06/26/17 15:00 66 06/26/17 15:00 73 16 123/69 (87) 92 06/26/17 14:00 64 06/26/17 14:00 21 06/26/17 13:00 64 I/O 06/26/17 06/26/17 06/26/17 06/27/17 06/27/17 06/27/17 07:00 15:00 23:00 07:00 15:00 23:00 Intake Total 550 ml 1130 ml 1850 ml Output Total 800 ml Balance 550 ml 1130 ml 1050 ml Intake Oral 50 ml 720 ml 240 ml IV Total 500 ml 500 ml Packed Cells 400 ml 1100 ml Blood Product IV Normal Saline Flush 10 ml 10 ml Output Urine Total 800 ml # Voids 3 2 # Bowel Movements 3 1 1 Result Diagram: 06/26/1765406/26/17654 Objective Remarks GENERAL: Chronically ill appearing elderly male patient. SKIN: Warm and dry. HEAD: Normocephalic. EYES: No scleral icterus. No injection or drainage. NECK: Supple, trachea midline. No JVD or lymphadenopathy. CARDIOVASCULAR: Regular rate and rhythm without murmurs, gallops, or rubs. RESPIRATORY: Breath sounds equal and clear to auscultation bilaterally. No accessory muscle use. Scant expiratory wheezing which appears to be mainly from upper airway. GASTROINTESTINAL: Abdomen soft, non-tender, nondistended. EXTREMITIES: 1+ pitting edema of lower extremities bilaterally. A/P Problem List: (1) Duodenal ulcer ICD Code: K26.9 - Duodenal ulcer, unspecified as acute or chronic, without hemorrhage or perforation (2) Anemia due to acute blood loss ICD Code: D62 - Acute posthemorrhagic anemia (3) Bloody diarrhea ICD Code: R19.7 - Diarrhea, unspecified (4) Clostridium difficile diarrhea ICD Code: A04.72 - Enterocolitis due to Clostridium difficile, not specified as recurrent (5) Failure to thrive in adult ICD Code: R62.7 - Adult failure to thrive Status: Acute (6) Dementia ICD Code: F03.90 - Unspecified dementia without behavioral disturbance (7) HTN (hypertension) ICD Code: I10 - Essential (primary) hypertension (8) Acute renal failure ICD Code: N17.9 - Acute kidney failure, unspecified (9) Sepsis ICD Code: A41.9 - Sepsis, unspecified organism Status: Acute (10) Debility ICD Code: R53.81 - Other malaise Assessment and Plan Sepsis with C. difficile colitis (recurrent) - improved only 2 bowel movements over past 24 hours bacteremia with klebsiella leukocytosis he was previously treated with PO vanco and finished course of antibiotic, now repeat stool positive for Cdiff with significant diarrhea, leukocytosis Discussed with Dr. Dontfraid will DC Flagyl and put him on a taper of vancomycin Per ID/dr. shukla no need to treat the klebsiella bacteremia at this time - since the repeated blood cultures are negative. leukocytosis persists but has improved Anemia of acute blood loss due to GI bleeding from large duodenal ulcer, gastritis monitor H/H- GI consult appreciated; discussed with Dr. Rey, endoscopy showed large duodenal ulcer and gastritis Status post transfusion of 2 units packed red blood cells on 06/26 for hemoglobin of 7.6 Hemoglobin pending today Acute Renal failure. initially cr 5-> now 1 Vit D deficiency . Appears ZLOTAN related to volume depletion in setting of dehydration from diarrhea. Recent increase in ACEI likely also contributing. DC IV fluids renal sonogram with no acute abnormality. Hold ACEI nephrology ff, appreciate recommendations continue with vitamin D supplement. Avoid nephrotoxic agents such as iodinated contrast dyes and NSAIDs. Avoid gadolinium. Failure to thrive in adult, Severe protein calorie malnutrition. - swallow evaluation recommends mechanical soft diet and thin liquids. Consulted proof coins inspector who recommended to ensure 3 times a day. Frail cachectic weak handgrip , low albumin at 2,, prealbumin of 9. Continue mechanical soft diet with thin liquids. Add ensure to diet after EGD. Physical deconditioning Cont PT HTN (hypertension) Blood pressure stable Hold ACEI Continue on Amlodipine and Metoprolol Dementia Continue home meds Skin redness and sacrum Consult wound care nurse DVT ppx SCD/TEDS-no pharmacologic prophylaxis due to occult GI bleed. DNR status. palliative care consult appreciated. Discharge Planning Discharge planning [facility] to [facility]. Family interested in hospice. However does not feel she can care for him at home. Patient may be discharged tomorrow if hemoglobin is stable. Elysia Moore MD Jun 27, 2017 12:32
[2017-06-27] MEDS ORDERED: VANC500I3 PO (12:36)
[2017-06-27] MEDS: SODIUM CHLORIDE 0.9% FLUSH 10 ML FLUSH IV FLUSH SCH (19:47)
[2017-06-27] MEDS: DONEPEZIL HCL 5 MG TAB PO SCH (19:47)
[2017-06-27 21:01] LABS: AUTOMATED NEUTROPHIL # 11.7 TH/MM3 (1.8-7.7); BASOPHIL % 0.3 % (0.0-2.0); EOSINOPHIL # 0.2 TH/MM3 (0-0.4); EOSINOPHIL % 1.5 % (0.0-4.0); HEMATOCRIT 36.2 % (39.0-51.0); LYMPH % 6.7 % (9.0-44.0); LYMPHOCYTE # 0.9 TH/MM3 (1.0-4.8); MEAN CELL VOLUME 95.3 FL (80.0-100.0); MEAN CORPUSCULAR HEMOGLOBIN 30.2 PG (27.0-34.0); MEAN CORPUSCULAR HGB CONC 31.7 % (32.0-36.0); MONO % 5.5 % (0.0-8.0); PLATELET COUNT 161 TH/MM3 (150-450); RED CELL DISTRIBUTION WIDTH 16.8 % (11.6-17.2); WHITE BLOOD COUNT 13.6 TH/MM3 (4.0-11.0)
[2017-06-27 21:04] LABS: HEMO FLAGS AUTO DIFF
[2017-06-27 21:19] LABS: BICARBONATE 21.1 MEQ/L (21.0-32.0); POTASSIUM 4.1 MEQ/L (3.5-5.1)
[2017-06-27 22:04] LABS: PLATELET ESTIMATE SMEAR NORMAL (NORMAL); PLATELET MORPHOLOGY NORMAL (NORMAL); SCAN/DIFF AUTO DIFF CONFIRMED; TEARDROP RBCS 1+ (NORMAL)
[2017-06-28] VITALS (20 sets, daily range): BP systolic 122–140; BP diastolic 64–84; PULSE 61–106; RESP 18; TEMP 98–98.6; O2SAT 96–100
[2017-06-28] MEDS: VANCOMYCIN 500 MG VIAL (FOR ORAL USE ONLY) PO SCH ×3 (05:12→11:54)
[2017-06-28] MEDS: FREE WATER G-TUBE SCH ×3 (05:12→12:00)
[2017-06-28] MEDS: PANTOPRAZOLE SOD 40 MG DELAYED RELEASE TAB PO SCH ×2 (05:13→16:00)
[2017-06-28 06:54] LABS: AUTOMATED NEUTROPHIL # 11.9 TH/MM3 (1.8-7.7); BASOPHIL % 0.3 % (0.0-2.0); EOSINOPHIL # 0.1 TH/MM3 (0-0.4); HEMATOCRIT 30.5 % (39.0-51.0); HEMO FLAGS DIFF FINAL; LYMPH % 8.4 % (9.0-44.0); LYMPHOCYTE # 1.2 TH/MM3 (1.0-4.8); MEAN CELL VOLUME 89.6 FL (80.0-100.0); MEAN CORPUSCULAR HEMOGLOBIN 30.8 PG (27.0-34.0); MEAN CORPUSCULAR HGB CONC 34.4 % (32.0-36.0); MONO % 5.2 % (0.0-8.0); NEUT % 85.1 % (16.0-70.0); PLATELET COUNT 170 TH/MM3 (150-450); RED CELL DISTRIBUTION WIDTH 15.3 % (11.6-17.2); WHITE BLOOD COUNT 13.9 TH/MM3 (4.0-11.0)
[2017-06-28 07:08] LABS: BICARBONATE 23.2 MEQ/L (21.0-32.0); POTASSIUM 4.1 MEQ/L (3.5-5.1)
[2017-06-28] MEDS: SODIUM CHLORIDE 0.9% FLUSH 10 ML FLUSH IV FLUSH SCH (09:00)
[2017-06-28] MEDS: LACTOBACILLUS ACIDOPHILUS TAB PO SCH ×2 (09:44→11:53)
[2017-06-28] MEDS: METOPROLOL TARTRATE 25 MG TAB PO SCH (09:44)
[2017-06-28] MEDS: CHOLECALCIFEROL (VIT D3) 1000 UNIT TAB PO SCH (09:44)
--- NOTE | 2017-06-28 11:47 | HHI.GIFU ---
Subjective Remarks 4+ lower extremity edema Poor historian, Abdomen soft active bowel sounds Afebrile (Brianne Pandey) Objective Vitals I&O Vital Signs Date Time Temp Pulse Resp B/P (MAP) Pulse Ox O2 Delivery O2 Flow Rate FiO2 06/28/17 09:01 98 Room Air 06/28/17 09:01 98.2 96 18 139/84 (102) 96 06/28/17 07:01 82 06/28/17 06:00 80 06/28/17 05:00 81 06/28/17 04:00 98.2 80 18 140/76 (97) 100 06/28/17 04:00 80 06/28/17 04:00 Room Air 06/28/17 03:00 77 06/28/17 02:00 74 06/28/17 01:00 76 06/28/17 00:00 98.0 75 18 122/82 (95) 100 06/28/17 00:00 88 06/28/17 00:00 Room Air 06/27/17 23:00 76 06/27/17 22:30 21 06/27/17 22:00 70 06/27/17 21:00 73 06/27/17 20:00 98.0 75 18 142/75 (97) 100 06/27/17 20:00 Room Air 06/27/17 20:00 75 06/27/17 18:54 98.7 75 18 169/89 (115) 06/27/17 18:23 Room Air 06/27/17 17:00 70 06/27/17 15:00 74 06/27/17 13:00 70 06/27/17 12:21 98.7 88 22 145/77 (99) 99 I/O 06/27/17 06/27/17 06/27/17 06/28/17 06/28/17 06/28/17 07:00 15:00 23:00 07:00 15:00 23:00 Intake Total 1850 ml 240 ml Output Total 800 ml 750 ml Balance 1050 ml -510 ml Intake Oral 240 ml 240 ml IV Total 500 ml Packed Cells 1100 ml Blood Product IV Normal Saline Flush 10 ml Output Urine Total 800 ml 750 ml # Voids 2 # Bowel Movements 1 1 Laboratory Laboratory Tests Test 06/27/17 20:16 06/28/17 06:25 White Blood Count 13.6 13.9 Red Blood Count 3.80 3.40 Hemoglobin 11.5 10.5 Hematocrit 36.2 30.5 Mean Corpuscular Volume 95.3 89.6 Mean Corpuscular Hemoglobin 30.2 30.8 Mean Corpuscular Hemoglobin Concent 31.7 34.4 Red Cell Distribution Width 16.8 15.3 Platelet Count 161 170 Mean Platelet Volume 8.0 8.0 Neutrophils (%) (Auto) 86.0 85.1 Lymphocytes (%) (Auto) 6.7 8.4 Monocytes (%) (Auto) 5.5 5.2 Eosinophils (%) (Auto) 1.5 1.0 Basophils (%) (Auto) 0.3 0.3 Neutrophils # (Auto) 11.7 11.9 Lymphocytes # (Auto) 0.9 1.2 Monocytes # (Auto) 0.7 0.7 Eosinophils # (Auto) 0.2 0.1 Basophils # (Auto) 0.0 0.0 CBC Comment AUTO DIFF DIFF FINAL Differential Comment AUTO DIFF CONFIRMED Platelet Estimate NORMAL Platelet Morphology Comment NORMAL Tear Drop Cells 1+ Blood Urea Nitrogen 25 32 Creatinine 1.04 0.98 Random Glucose 120 116 Calcium Level 8.8 8.7 Sodium Level 139 142 Potassium Level 4.1 4.1 Chloride Level 111 113 Carbon Dioxide Level 21.1 23.2 Anion Gap 7 6 Estimat Glomerular Filtration Rate 68 72 Date/Time Source Procedure Growth Status 06/20/17 12:40 Blood Peripheral Aerobic Blood Culture - Final NO GROWTH IN 5 DAYS Complete 06/20/17 12:40 Blood Peripheral Anaerobic Blood Culture - Final NO GROWTH IN 5 DAYS Complete 06/22/17 21:30 Stool Stool Stool Occult Blood (SLIM) - Final HEMOCCULT POSITIVE Complete 06/16/17 14:57 Urine Catheterized Urine Urine Culture - Final NO GROWTH IN 48 HOURS. Complete Imaging Last Impressions Chest X-Ray 06/24/17 0000 Signed Impressions: Service Date/Time: June 09:54 - CONCLUSION: No acute disease. Dontae Souza MD Renal Ultrasound 06/16/17 0000 Signed Impressions: Service Date/Time: Friday, June 16, 2017 20:41 - CONCLUSION: No acute disease. Suhas Terrazas MD Physical Exam HEENT: Normocephalic; atraumatic CHEST: CTA CARDIAC: RRR ABDOMEN: Round, Soft, nondistended, nontender; bowel sounds active x 4. EXTREMITIES: Lower extremity edema 4+ SKIN: Normal; no rash; no jaundice. PROJECTION TECHNICIAN: Awake, poor historian (Brianne Pandey) Assessment and Plan Assessment: (1) Bloody diarrhea ICD Codes: R19.7 - Diarrhea, unspecified (2) Clostridium difficile diarrhea ICD Codes: A04.72 - Enterocolitis due to Clostridium difficile, not specified as recurrent (3) Colitis ICD Codes: K52.9 - Noninfective gastroenteritis and colitis, unspecified Status: Acute (4) Dementia ICD Codes: F03.90 - Unspecified dementia without behavioral disturbance (5) C. difficile colitis ICD Codes: A04.72 - Enterocolitis due to Clostridium difficile, not specified as recurrent (6) Failure to thrive in adult ICD Codes: R62.7 - Adult failure to thrive Status: Acute Plan Assessment: C diff colitis- (+) C. diff toxin- negative epid. ID following. Receiving oral Vanco and Flagyl- Reports of continued diarrhea. Probiotic. Abdomen round soft, patient is attempting to drink fluids, decreased appetite Anemia- normocytic- hemoglobin currently stable, no active bleed noted 2 U PRBCs transfusion, continue to monitor hemoglobin, EGD (06/25) --> Large duodenal bulbar ulcer. No bleeding noted Friable edges. Gastritis. Esophagus normal. Small hiatal hernia. Pathology pending. PPI increased to BID. Plan: Encourage diet as tolerated with patient including by mouth fluids - Continue Protonix BID - Continue Vanco PO - Continue Flagyl - Monitor H/H - Transfuse as needed - Notify GI of active bleeding - Supportive care, questionable discharge planning needs, palliative care involved - Further recommendations to follow based on results of above Patient seen and examined by Dr. Powell and myself and this note is written on his behalf. (Brianne Pandey) Physician Comments agree with above waiting for biopsy results we'll follow up (Tamiko Powell MD) Brianne Pandey Jun 28, 2017 11:47 Tamiko Powell MD Jun 28, 2017 16:03
--- NOTE | 2017-06-28 14:06 | PD.WCN.NOT ---
Wound Consult Description: Wound consult for Sacrum Communicated with: consult ordered by Ilya Mccoy third floor RN Recommendation: 1)Please reposition patient every two hours for offloading and comfort. 2) Cleanse Buttocks with warm soap and water rinse and pat dry. 3) Apply calamine and antifungal cream in a 50/50 to reddened area and periarea BID. Additional Information: Patient was evaluated today [facility] keno writer and [facility] for consult of sacrum. Patient laying in bed alert to self only, present with patient.Feed Mill Manager assisted patient to turn to left side.Patient had large loose stool is incontinent of bowel and bladder (Condom cath in place).Patient cleaned sacrum presents unstagable pressure injury ~3.5cm x ~2.1 heart shaped with 100% soft yellow slough.Brii wound presents beefy red denoted areas,fungal rash to noted to perineal area into groin area.Calazime applied to sacrum and perineal/groin area.Antifungal not available at this time.Nurse Ilya will apply when available. Karina Harris [facility] Jun 28, 2017 14:06
[2017-06-28] MEDS ORDERED: NYST15T TOPICAL (14:14)
--- NOTE | 2017-06-28 14:17 | HHI.DS ---
Discharge Summary Admission Date Jun 16, 2017 at 16:00 Discharge Date: Jun 28, 2017 Admitting Diagnosis Sepsis, Acute Renal Failure (1) Duodenal ulcer ICD Code: K26.9 - Duodenal ulcer, unspecified as acute or chronic, without hemorrhage or perforation (2) Anemia due to acute blood loss ICD Code: D62 - Acute posthemorrhagic anemia (3) Bloody diarrhea ICD Code: R19.7 - Diarrhea, unspecified (4) Clostridium difficile diarrhea ICD Code: A04.72 - Enterocolitis due to Clostridium difficile, not specified as recurrent (5) Failure to thrive in adult ICD Code: R62.7 - Adult failure to thrive Status: Acute (6) Dementia ICD Code: F03.90 - Unspecified dementia without behavioral disturbance (7) HTN (hypertension) ICD Code: I10 - Essential (primary) hypertension (8) Acute renal failure ICD Code: N17.9 - Acute kidney failure, unspecified (9) Sepsis ICD Code: A41.9 - Sepsis, unspecified organism Status: Acute (10) Debility ICD Code: R53.81 - Other malaise Procedures EGD Brief History - From Admission Patient is a 86-year-old male with history of dementia, hypertension who presents to emergency room from home for evaluation of generalized weakness. As per EMS, patient's family called as patient was unable to get up from the floor after he had physical therapy today. Family reports that patient has been weak, reports that he had one episode of diarrhea and is concerned for possible C. difficile. Reports the patient was recently admitted to the hospital and treated for C. difficile, he was ultimately discharged May to a rehabilitation facility ([facility]) on Vancomycin PO for treatment of C. difficile. Reports the patient was admitted to [facility] for 10 days, reports that after discharged to home, home rehab has been coming to their home. Reports that he did have rehab today and patient was too weak to get up from the floor after his therapy. Patient at this time is only alert to person, patient with no complaints at this time. He is pleasantly demented, no family at bedside. Patient is a poor historian and history obtained form medical records and patient. Has no other complaints except abdominal pain with palpation. He has diarrhea however he is not able to answer how many times a day he had loose stool. No fever or chills. No cp, sob. CBC/BMP: 06/28/17 0625 06/28/17 0625 Significant Findings Laboratory Tests Test 06/26/17 06:55 06/27/17 20:16 06/28/17 06:25 White Blood Count 13.7 TH/MM3 (4.0-11.0) 13.6 TH/MM3 (4.0-11.0) 13.9 TH/MM3 (4.0-11.0) Red Blood Count 2.40 MIL/MM3 (4.50-5.90) 3.80 MIL/MM3 (4.50-5.90) 3.40 MIL/MM3 (4.50-5.90) Hemoglobin 7.6 GM/DL (13.0-17.0) 11.5 GM/DL (13.0-17.0) 10.5 GM/DL (13.0-17.0) Hematocrit 22.4 % (39.0-51.0) 36.2 % (39.0-51.0) 30.5 % (39.0-51.0) Neutrophils (%) (Auto) 85.4 % (16.0-70.0) 86.0 % (16.0-70.0) 85.1 % (16.0-70.0) Lymphocytes (%) (Auto) 7.7 % (9.0-44.0) 6.7 % (9.0-44.0) 8.4 % (9.0-44.0) Neutrophils # (Auto) 11.7 TH/MM3 (1.8-7.7) 11.7 TH/MM3 (1.8-7.7) 11.9 TH/MM3 (1.8-7.7) Blood Urea Nitrogen 30 MG/DL (7-18) 25 MG/DL (7-18) 32 MG/DL (7-18) Calcium Level 8.4 MG/DL (8.5-10.1) Chloride Level 113 MEQ/L (98-107) 111 MEQ/L (98-107) 113 MEQ/L (98-107) Estimat Glomerular Filtration Rate 64 ML/MIN (>89) 68 ML/MIN (>89) 72 ML/MIN (>89) Mean Corpuscular Hemoglobin Concent 31.7 % (32.0-36.0) Lymphocytes # (Auto) 0.9 TH/MM3 (1.0-4.8) Tear Drop Cells 1+ (NORMAL) Random Glucose 120 MG/DL (74-106) 116 MG/DL (74-106) PE at Discharge GENERAL: Chronically ill appearing elderly male patient. SKIN: Warm and dry. HEAD: Normocephalic. EYES: No scleral icterus. No injection or drainage. NECK: Supple, trachea midline. No JVD or lymphadenopathy. CARDIOVASCULAR: Regular rate and rhythm without murmurs, gallops, or rubs. RESPIRATORY: Breath sounds equal and clear to auscultation bilaterally. No accessory muscle use. Scant expiratory wheezing which appears to be mainly from upper airway. GASTROINTESTINAL: Abdomen soft, non-tender, nondistended. EXTREMITIES: 1+ pitting edema of lower extremities bilaterally. Hospital Course Sepsis with C. difficile colitis (recurrent) - improved only 2 bowel movements over past 24 hours bacteremia with klebsiella leukocytosis he was previously treated with PO vanco and finished course of antibiotic, now repeat stool positive for Cdiff with significant diarrhea, leukocytosis Discussed with Dr. Devries patient to continue on taper of vancomycin Per ID/dr. devries no need to treat the klebsiella bacteremia at this time - since the repeated blood cultures are negative. leukocytosis persists but has improved Anemia of acute blood loss due to GI bleeding from large duodenal ulcer, gastritis monitor H/H- GI consult appreciated; discussed with Dr. Rey, endoscopy showed large duodenal ulcer and gastritis Status post transfusion of 2 units packed red blood cells on 06/26 for hemoglobin of 7.6 Hemoglobin stable 10.5 Acute Renal failure. initially cr 5-> now 1 Vit D deficiency . Appears ZOLTAN related to volume depletion in setting of dehydration from diarrhea. Recent increase in ACEI likely also contributing. s/p IVF renal sonogram with no acute abnormality. Hold ACEI appreciate nephrology input Failure to thrive in adult, Severe protein calorie malnutrition. - swallow evaluation recommends mechanical soft diet and thin liquids. Consulted heel varnisher who recommended to ensure 3 times a day. Frail cachectic weak handgrip , low albumin at 2,, prealbumin of 9. Continue mechanical soft diet with thin liquids. Add ensure to diet after EGD. Physical deconditioning Cont PT HTN (hypertension) Blood pressure stable Hold ACEI Continue on Amlodipine and Metoprolol Dementia Continue home meds Skin redness and sacrum Consult wound care nurse, start nystatin cream DC to hospice care facility today. Discussed with hospice nurse. Pt Condition on Discharge: Fair Discharge Disposition: Hospice/Med Facility Discharge Time: > 30 minutes Discharge Instructions DIET: Follow Instructions for: As Tolerated, No Restrictions Speech Therapy-Diet Recommends: Mechanical Soft Activities you can perform: Regular-No Restrictions Follow up Referrals: Gastroenterology - 4 Weeks @ [facility] PCP Follow-up - 2-3 Days New Medications: Nystatin Topical (Nystatin Topical) 100,000 unit/gm Cream 1 APPLIC TOPICAL BID for Infection, #15 GM 0 Refills Cholecalciferol (Gnp Vitamin D3 Extra Stre) 1,000 Unit Tab 2000 UNITS PO DAILY for Nutritional Supplement, #30 TAB Vancomycin Inj (Vancomycin Inj) 500 Mg Inj 125 MG PO Q6H for Infection for 44 Days, INJECTION 125 mg every 6 hours for 6 days Than 125 mg every 12 hours 7 days Then 125 mg every 24 hours 7 days Than 125 mg every 48 7 days Then 125 mg every 72 hours 14 days Continued Medications: Amlodipine (Amlodipine) 10 Mg Tab 10 MG PO DAILY for Blood Pressure Management, #30 TAB 0 Refills Donepezil (Donepezil) 23 Mg Tab 10 MG PO HS for Dementia, #30 TAB 0 Refills Do not split, crush or chew. Lactobacillus Acidophilus (Acidophilus/l-Sporogenes) 35 Million Cell-25 Million Cell Tab 1 TAB PO TID for probiotic, #30 TAB 0 Refills Metoprolol Tartrate (Metoprolol Tartrate) 25 Mg Tab 25 MG PO DAILY, #30 TAB 0 Refills Discontinued Medications: Lisinopril (Lisinopril) 10 Mg Tab 10 MG PO DAILY, #30 TAB 0 Refills Vancomycin Inj (Vancomycin Inj) 500 Mg Inj 125 MG PO QID for Infection, #44 INJECTION 0 Refills Stop date 06/01/17 Elysia Moore MD Jun 28, 2017 14:16
== END 2017-06-28 16:57 | disposition hospice, inpatient (51) | DRG 871 ==
LOC: NEPD 13:24 → NEDA 16:00 → HCIS 19:40
PROVIDERS: ADMIT Family Medicine; ATTEND Family Medicine
PROC: 0DB68ZX Excision of Stomach, Via Natural or Artificial Opening Endoscopic, Diagnostic (ICD-10-PCS; principal; 2017-06-25 16:20)
PROC: 30233N1 Transfusion of Nonautologous Red Blood Cells into Peripheral Vein, Percutaneous Approach (ICD-10-PCS; 2017-06-26)
DX: A41.9 Sepsis, unspecified organism (principal); K26.4 Chronic or unspecified duodenal ulcer with hemorrhage; E43 Unspecified severe protein-calorie malnutrition; N17.9 Acute kidney failure, unspecified; A04.71 Enterocolitis due to Clostridium difficile, recurrent; E87.0 Hyperosmolality and hypernatremia; F03.90 Unspecified dementia, unspecified severity, without behavioral disturbance, psychotic disturbance, mood disturbance, and anxiety; E86.0 Dehydration; D62 Acute posthemorrhagic anemia; R64 Cachexia; R62.7 Adult failure to thrive; R00.0 Tachycardia, unspecified; I10 Essential (primary) hypertension; E55.9 Vitamin D deficiency, unspecified; K44.9 Diaphragmatic hernia without obstruction or gangrene; Z68.26 Body mass index [BMI] 26.0-26.9, adult; Z51.5 Encounter for palliative care; Z66 Do not resuscitate; Z23 Encounter for immunization
CPT/HCPCS: 36430; 71010; 76775; 80048; 80053; 81001; 82040; 82272; 82306; 82550; 82552; 83605; 83735; 83880; 83970; 84100; 84134; 84484; 85007; 85014; 85018; 85025; 85027; 85610; 85730; 86850; 86900; 86901; 86920; 87040; 87077; 87086; 87186; 87205; 87493; 88305; 90732; 93005; J1650; J7030; J7040; J7512; P9016; P9612